=== PATIENT | female | born 1970 | race Caucasian/White ===

== ENCOUNTER 2020-09-26 10:10 | Outpatient (CLI) | payer OTHER, SELFPAY ==
--- NOTE | ~2020-09-26 | MM_ITS ---
EXAMINATION: MM screening cathy LT w evelyn HISTORY: Screening TECHNIQUE: Craniocaudal and mediolateral oblique 3-D tomosynthesis images were obtained and synthetic 2-D images were generated. CAD analysis was submitted and interpreted. COMPARISON: Comparison to multiple prior studies sequentially, with oldest reviewed study dated 09/14. BREAST PARENCHYMAL COMPOSITION: There are scattered areas of fibroglandular density. FINDINGS: There is no evidence of suspicious mass, calcification, or architectural distortion to sugg est malignancy in the left breast. There has been no suspicious interval change. IMPRESSION: 1. No mammographic evidence of malignancy. 2. Recommend routine screening mammography in one year. BI-RADS Category 1: Negative Reviewed, dictated and finalized at location A.
== END 2020-09-26 10:11 | disposition home or self-care (01) ==
LOC: ANHIMG 10:14
PROVIDERS: PCP Family Medicine; Visit Provider Family Medicine
DX: Z12.31 Encounter for screening mammogram for malignant neoplasm of breast (principal)
CPT/HCPCS: 77063; 77067

== ENCOUNTER 2021-12-12 11:33 | Outpatient (CLI) | payer OTHER, SELFPAY ==
--- NOTE | ~2021-12-12 | MM_ITS ---
EXAMINATION: MM screening cathy LT w evelyn HISTORY: Screening mammogram TECHNIQUE: Craniocaudal and mediolateral oblique 3-D tomosynthesis images were obtained and synthetic 2-D images were generated. CAD analysis was submitted and interpreted. COMPARISON: 09/26/2020, 11/08/2018, 11/03/2017 left screening mammogram examinations BREAST PARENCHYMAL COMPOSITION: The breasts are heterogeneously dense, which may obscure small masses . FINDINGS: : Subtle microcalcifications are suggested in the posterior inner left breast on craniocaud al view. Magnification views are recommended. Otherwise there is no evidence of suspicious mass or architectural distortion to suggest malignancy i n the left breast. There has been no other suspicious interval change. IMPRESSION: 1. Subtle microcalcifications are suggested in the posterior inner left breast 2. Diagnostic left mammogram is recommended with magnification views, with ultrasound if required BI-RADS Category 0: Incomplete: Needs additional imaging evaluation. Reviewed, dictated and finalized at location B. IMPRESSION: 1. Subtle microcalcifications are suggested in the posterior inner left breast 2. Diagnostic left mammogram is recommended with magnification views, with ultr asound if required BI-RADS Category 0: Incomplete: Needs additional imaging evaluation.
== END 2021-12-12 11:34 | disposition home or self-care (01) ==
PROVIDERS: PCP Family Medicine; Visit Provider Physician Assistant
DX: Z12.31 Encounter for screening mammogram for malignant neoplasm of breast (principal); R92.8 Other abnormal and inconclusive findings on diagnostic imaging of breast
CPT/HCPCS: 77063; 77067

== ENCOUNTER 2022-01-04 13:47 | Outpatient (CLI) | payer OTHER, SELFPAY ==
--- NOTE | ~2022-01-04 | MM_ITS ---
EXAMINATION: MM diagnostic mammo unilat LT HISTORY: Follow-up left breast calcifications TECHNIQUE: Additional 3-D tomosynthesis images of the left breast were performed and synthetic 2-D im ages were generated. CAD analysis was submitted and interpreted. COMPARISON: Comparison to multiple prior studies sequentially, with oldest reviewed study dated 10/23. BREAST PARENCHYMAL COMPOSITION: The breasts are heterogeneously dense, which may obscure small masses . FINDINGS: The calcifications seen on prior examination are not appreciated on the spot magnification and mediolateral views, possibly artifactual. There are no suspicious calcifications, masses or archi tectural distortion on the diagnostic images. IMPRESSION: 1. Probable benign findings of the left breast. 2. Recommend 6 month follow-up diagnostic left mammogram. BI-RADS category 3, probably benign findings. Reviewed, dictated and finalized at location A.
== END 2022-01-04 13:48 | disposition home or self-care (01) ==
LOC: ANHIMG 13:48
PROVIDERS: PCP Physician Assistant; Visit Provider Physician Assistant
DX: R92.8 Other abnormal and inconclusive findings on diagnostic imaging of breast (principal); R92.1 Mammographic calcification found on diagnostic imaging of breast
CPT/HCPCS: 77065

== ENCOUNTER 2023-07-04 09:54 | Emergency (ER) | payer OTHER, SELFPAY ==
[2023-07-04 10:07] VITALS: BP 129/79; PULSE 86; RESP 16; TEMP 36.8; O2SAT 100
[2023-07-04 10:08] VITALS: BP 129/79; PULSE 86; RESP 16; TEMP 36.8; O2SAT 100
--- NOTE | 2023-07-04 10:25 | ED.URI ---
HPI - URI/Sore Throat General Chief Complaint: Upper Respiratory Infection Stated Complaint: left eye red,throat hurts Time Seen by Provider: 07/04/23 10:16 Source: patient and RN notes reviewed Mode of arrival: ambulatory Limitations: no limitations History of Present Illness HPI Narrative: Patient presents today complaining of sore throat since last night with 3 day history of left eye redness, itching. States she has some drainage in the corner of her eye when she wakes up in the morning, but none throughout the day. Denies vision changes, fever, congestion, rhinorrhea. She has been taking Tylenol with some relief. Patient wears glasses but no contacts. Related Data Home Medications Medication Instructions Recorded Confirmed ipratropium bromide 17 17 mcg inhalation DIRECTED 07/04/23 07/04/23 mcg/actuation HFA aerosol inhaler (Atrovent HFA) Allergies Allergy/AdvReac Type Severity Reaction Status Date / Time Cat Dander Allergy Unknown Uncoded 07/29/18 08:55 Review of Systems Review of Systems: CONSTITUTIONAL: Denies body aches, fever, chills, or sweats. EYES: Denies visual changes.+ left eye redness ENT: Denies rhinorrhea, congestion, or otalgia.+ sore throat CARDIOVASCULAR: Denies chest pain, palpitations, or edema. RESPIRATORY: Denies cough or dyspnea. GASTROINTESTINAL: Denies abdominal pain, nausea, vomiting, or diarrhea. GENITOURINARY: Denies dysuria or hematuria. SKIN: Denies rash, itching, or wounds. MUSCULOSKELETAL: Denies back pain, joint pain, or myalgia. NEUROLOGIC: Denies headache, numbness, tingling, or weakness. PSYCH: Denies depression or anxiety. [facility] Family History Family History Other Cerebrovascular accident Diabetes mellitus Family history of arthritis Family history of cardiovascular disease Hypertension Social History Social History Alcohol intake: never Comments At time of signature, I have reviewed and agree with nursing past medical, surgical, social and family history unless otherwise noted. Please see nursing chart for further information. There is no relevant family history pertinent to the presenting complaint Exam Narrative: GENERAL: Well-appearing, well-nourished, and in no acute distress. HEAD: Normocephalic, atraumatic. EYES: EOMI. PERRL. Bilateral injected conjunctiva with chemosis. Mild left subconjunctival hemorrhage. No active drainage. Lids and lashes normal. ENT: Mucous membranes pink and moist. Nares clear. No rhinorrhea. TMs normal bilaterally. Throat without erythema or edema. Some cobblestoning in the posterior pharynx. Uvula midline. NECK: Normal AROM. Supple. No lymphadenopathy. CHEST: No respiratory distress. Clear to auscultation. HEART: Regular rate and rhythm. No murmur appreciated. EXTREMITIES: Normal range of motion. No edema. SKIN: Warm, dry, no rash. Capillary refill normal. Normal skin turgor. NEURO: No focal deficits. Alert and oriented x3. Gait steady. PSYCH: Normal affect. No signs of depression or anxiety. Course Course Level of Care: Express Care Visit Vital Signs Vital signs: Vital Signs Temperature 98.2 F 07/04/23 10:07 Pulse Rate 86 07/04/23 10:07 Respiratory Rate 16 07/04/23 10:07 Blood Pressure 129/79 07/04/23 10:07 Pulse Oximetry 100 07/04/23 10:07 Oxygen Delivery Room Air 07/04/23 10:07 Temperature 98.2 F 07/04/23 10:08 Pulse Rate 86 07/04/23 10:08 Respiratory Rate 16 07/04/23 10:08 Blood Pressure 129/79 07/04/23 10:08 Pulse Oximetry 100 07/04/23 10:08 Oxygen Delivery Room Air 07/04/23 10:08 Reviewed MDM - URI/Sore Throat MDM Narrative Medical decision making narrative: Rapid strep negative. Culture pending. Throat and eye Symptoms likely due to seasonal allergies. Portion of redness to the left eye due to subco
== END 2023-07-04 10:35 | disposition home or self-care (01) ==
PROVIDERS: Emergency Provider Nurse Practitioner; PCP Physician Assistant
DX: J30.2 Other seasonal allergic rhinitis (principal); H10.13 Acute atopic conjunctivitis, bilateral; H11.32 Conjunctival hemorrhage, left eye; J02.0 Streptococcal pharyngitis; B95.0 Streptococcus, group A, as the cause of diseases classified elsewhere; J44.9 Chronic obstructive pulmonary disease, unspecified; Z85.3 Personal history of malignant neoplasm of breast; Z92.21 Personal history of antineoplastic chemotherapy; Z90.11 Acquired absence of right breast and nipple
CPT/HCPCS: 87081; 87880; 99213; G0463

== ENCOUNTER 2023-10-24 08:01 | Outpatient (CLI) | payer OTHER, SELFPAY ==
--- NOTE | 2023-10-24 15:59 | WPDPFTINT ---
PFT Procedure Performed PFT Procedure Performed Plethysmography (Lung Vol) Diffusing Cap (DLCO) Flow Vol Loop Spirometry w/o Bronchodil PFT Interpretation This is a pulmonary function test with spirometry, plethysmography and diffusing capacity. The test was performed and results interpreted in accordance with the 2019 and 2005 ATS/ERS Task Force guidelines respectively using the Global Lung Function Initiative-2012 reference equations. Patient demonstrated good effort and cooperation. Reproducibility criteria were met. The quality of the spirometry maneuver was Grade A. Findings: Spirometry: There is decreased maximal expiratory airflow at all lung volumes with concave expiratory flow tracing. The contour the inspiratory flow tracing is normal. The FVC is 2.66 L, 94% predicted. The FEV1 is 1.60 L, 70% predicted. The FEV1: FVC ratio 60%. Plethysmography: Total lung capacity is 3.85 L, 89% predicted. The functional residual capacity is 1.76 L, 74% predicted. The residual volume is 1.19 L, 75% predicted. Diffusing capacity: The diffusing capacity unadjusted for hemoglobin and carboxyhemoglobin is 17.2, 84% predicted. The diffusing capacity adjusted for alveolar volume is 4.38, 91% predicted. In comparison to previous pulmonary function testing on 01/23/2018 the FVC has increased from 2.02 L to 2.66 L. The FEV1 has increased from 1.02 L to 1.60 L. The total lung capacity is decreased from 4.53 L to 3.85 L. The functional residual capacity is decreased from 3.01 L to 1.76 L. The residual volume has decreased from 2.51 L to 1.19 L. The diffusing capacity unadjusted for hemoglobin and carboxyhemoglobin is unchanged from 18.9 to 17.2. The diffusing capacity adjusted for alveolar volume has decreased from 5.36 to 4.38. Impression: There is a mild obstructive abnormality. the lung volumes are normal. The diffusing capacity is normal. In comparison to previous pulmonary function testing on 01/23/2018 there has been a greater than anticipated time dependent increase in the FVC and FEV1. There has been a greater than anticipated time dependent decrease in the total lung capacity, functional residual capacity, residual volume and diffusing capacity adjusted for alveolar volume. There has been no significant change in the diffusing capacity unadjusted for hemoglobin and carboxyhemoglobin. Clinical correlation is recommended.
== END 2023-10-24 08:02 | disposition home or self-care (01) ==
LOC: ANHPFT 08:03
PROVIDERS: PCP Physician Assistant; Visit Provider Physician Assistant
DX: J44.9 Chronic obstructive pulmonary disease, unspecified (principal)
CPT/HCPCS: 94375; 94726; 94729

== ENCOUNTER 2025-01-01 19:32 | Emergency (ER) | payer OTHER, SELFPAY ==
[2025-01-01] VITALS (12 sets, daily range): BP systolic 125–147; BP diastolic 71–89; PULSE 94; RESP 20; TEMP 36.4; O2SAT 96–100
--- NOTE | ~2025-01-01 | CT_ITS ---
CT abdomen pelvis w con Clinical History: ab pain . Comparison: None Technique: Axial images lung bases to symphysis pubis 100 mL Omnipaque 350 Coronal, sagittal reformats CT images acquired with automatic exposure control for dose reduction DLP: 423 mGy-cm Findings: Lung bases: Clear. Visualized heart and pericardium: Unremarkable. Liver: Enlarged. Steatosis. Small dystrophic calcification along dome. Probable micronodular contour. Gallbladder: Probable stones. Spleen: Unremarkable. Pancreas: Unremarkable. Adrenal glands: Unremarkable. Kidneys: Right kidney- No hydronephrosis. No renal stones. Left kidney- No hydronephrosis. No renal stones. Distal esophagus/stomach: Unremarkable. Small bowel loops: Normal caliber and wall thickness. Colon: Normal caliber and wall thickness. Appendix not seen. Nodes: No enlarged nodes. Peritoneum: No ascites. No free air. Urinary bladder: Unremarkable. Uterus: Unremarkable. Adnexa: No masses. Bones: No acute bony abnormality. Soft tissues: Unremarkable. Aorta: No aneurysm or dissection. IVC: Unremarkable. Main portal vein/SMV/splenic vein: Patent. IMPRESSION: 1. No acute findings. Reviewed, dictated and finalized at location R. IMPRESSION: 1. No acute findings.
--- NOTE | 2025-01-01 20:27 | ED_ITS ---
HPI - General Adult General Chief complaint: Abdominal Pain Stated complaint: abdominal pain, nausea/vomit weeks Time Seen by Provider: 01/01/25 20:04 History of Present Illness HPI narrative: 54-year-old female presented emergency department for evaluation for left upper quadrant abdominal pain it has been intermittent for the last few weeks. Patient reports she has had increased worsened heartburn. Patient has had associated nausea and vomiting. Patient denies any prior history of gastritis or heartburn or stomach ulcers. Patient does not drink alcohol daily and patient denies any frequent ibuprofen use. Patient has no prior history of endoscopy. Patient denies any midline abdominal pain denies any right upper quadrant abdominal pain. Patient is well-appearing at time of evaluation. Patient has no prior abdominal surgical history. Related Data Home Medications ?Medication ?Instructions ?Recorded ?Confirmed ?Last Taken ?Type ipratropium bromide 17 17 mcg inhalation DIRECTE D 07/04/23 07/04/23 Unknown History mcg/actuation HFA aerosol inhaler (Atrovent HFA) Allergies Allergy/AdvReac Type Severity Reaction Status Date / Time Cat Dander Allergy Unknown Uncoded 07/29/18 08:55 Review of Systems 2 Review of Systems: All systems reviewed & are unremarkable except as noted in HPI and below PMFSH Family History Family History Other Cerebrovascular accident Diabetes mellitus Family history of arthritis Family history of cardiovascular disease Hypertension Social History Social History Alcohol intake: never Exam 2 Narrative: APPEARANCE: Well appearing, no pain, no distress, well-nourished. HEAD: normocephalic, atraumatic. EYES: PERRLA/EOMI, conjunctivae clear. NOSE: Normal no drainage EARS:TMS clear with good light reflex. THROAT: Pharynx clear, no exudate. NECK: Supple. No adenopathy, no masses. RESPIRATORY: Airway patent, respirations nonlabored. Clear to auscultation bilaterally, no rales, rhonchi, wheezing. CARDIOVASCULAR: Regular rate and rhythm without murmurs rubs or gallops. ABDOMINAL: Soft, nontender, nondistended, normal bowel sounds MUSCULOSKELETAL: left upper quadrant tenderness to palpation NEURO: Alert. Cranial nerves II through XII intact. Good gait. Good coordination SKIN: Warm, dry. Normal Color Course Vital Signs Vital signs: Vital Signs Temperature 97.6 F 01/01/25 19:51 Pulse Rate 94 01/01/25 19:51 Respiratory Rate 20 01/01/25 19:51 Blood Pressure 147/89 H 01/01/25 19:51 Pulse Oximetry 99 01/01/25 19:51 Oxygen Delivery Room Air 01/01/25 19:51 Temperature 97.6 F 01/01/25 19:51 Pulse Rate 94 01/01/25 19:51 Respiratory Rate 20 01/01/25 19:51 Blood Pressure 132/71 01/01/25 22:16 Pulse Oximetry 97 01/01/25 22:16 Oxygen Delivery Room Air 01/01/25 19:51 Medical Decision Making MDM Narrative Medical decision making narrative: 54-year-old female presents emergency department for evaluation for left upper quadrant abdominal pain. Patient was treated with IV fluids, IV Protonix and a GI cocktail and on re-evaluation patient states he does feel significantly improved. Patient is currently afebrile with no leukocytosis hemoglobin of 14.4 and platelet count of 250. Patient's INR is 0.9. No significant acute abnormalities on her CMP UA was negative for infection. CT abdomen pelvis is pending at time of sign-out. Differential Diagnosis Differential Diagnosis: Colitis, diverticulitis, acute cholecystitis, appendicitis Vital Signs Vital Signs: Vital Signs Temperature 97.6 F 01/01/25 19:51 Pulse Rate 94 01/01/25 19:51 Respiratory Rate 20 01/01/25 19:51 Blood Pressure 147/89 H 01/01/25 19:51 Pulse Oximetry 99 01/01/25 19:51 Oxygen Delivery Room Air 01/01/25 19:51 Temperature 97.6 F 01/01/25 19:51 Pulse Rate 94 01/01/25 19:51 Respiratory Rate 20 01/01/25 19:51 Blood Pressure 132/71 01/01/25 22:16 Pulse Oximetry 97 01/01/25 22:16 Oxygen Delivery Room Air 01/01/25 19:51 Lab Data 01/01/25 20:27 01/01/25 20:27 Labs: Lab Results 01/01/25 01/01/25 Range/Units 20:21 20:27 WBC 7.3 (4.5-10.0) K/mm3 RBC 4.65 (4.2-5.4) M/mm3 Hgb 14.4 (12.0-15.0) g/dL Hct 42.8 (37.0-47.0) % MCV 92.0 (80-100) fl MCH 31.0 (26-34) pg MCHC 33.6 (32-36) g/dl RDW 12.9 (11.5-14.5) % Plt Count 250 (150-375) k/mm3 MPV 9.2 (7.4-10.4) fl Immature Gran % (Auto) 0.1 (0-0.5) % Neut % (Auto) 61.6 (45.5-73.1) % Lymph % (Auto) 28.3 (18.3-44.2) % [place] % (Auto) 8.1 (2.6-8.5) % Eos % (Auto) 1.6 (0-4.4) % Baso % (Auto) 0.3 (0.2-1.2) % Lymph # (Auto) 2.07 (0.9-3.2) K/mm3 [place] # (Auto) 0.6 (0.1-0.6) K/mm3 Eos # (Auto) 0.1 (0-0.3) K/mm3 Baso # (Auto) 0.0 (0.0-0.1) K/mm3 Abs Immat Gran (auto) 0.01 (0.00-0.031) K/mm3 Absolute Neuts (auto) 4.5 (1.3-6.7) K/mm3 Absolute Nucleated RBC 0.000 (0.0-0.012) K/mm3 Nucleated RBC % 0.0 (0.0-0.2) % PT 12.7 (11.1-14.7) Seconds INR 0.9 APTT 25.4 (22.3-36.8) Seconds Sodium 138 (137-145) mmol/L Potassium 4.0 (3.4-5.0) mmol/L Chloride 105 (98-107) mmol/L Carbon Dioxide 25 (22-30) mmol/L Anion Gap 8 (4-12) mmol/L BUN 23 H (7-17) mg/dL Creatinine 0.74 (0.7-1.0) mg/dL Estim Creat Clear Calc Not Reportable Estimated GFR > 60 (59 - ) Glucose 103 (65-110) mg/dL Lactic Acid 1.1 (0.7-2.0) mmol/L Calcium 8.9 (8.4-10.2) mg/dL Total Bilirubin 0.4 (0.2-1.3) mg/dL AST 41 H (14-36) U/L ALT 40 H (6-35) U/L Alkaline Phosphatase 61 (38-126) U/L Total Protein 7.3 (6.3-8.2) g/dL Albumin 4.5 (3.5-5.1) g/dL Lipase 85 (23-300) U/L Urine Color Yellow (Yellow) Urine Appearance Clear (Clear) Urine pH 6.5 (5.0-9.0) Ur Specific [place] 1.014 (1.001-1.035) Urine Protein Negative (Negative) mg/dL Urine Glucose (UA) Negative (Negative) mg/dL Urine Ketones Negative (Negative) mg/dL Ur Blood (Man) Negative (Negative) Urine Nitrate Negative (Negative) Urine Bilirubin Negative (Negative) Urine Urobilinogen 1.0 (<2.0) mg/dL Leukocyte Esterase Rfl Negative (Negative) ZHANNA/UL Discharge Plan Discharge Clinical Impression: Abdominal pain, Gastritis Patient Disposition: Home Condition: Stable Instructions: Antibiotic Form, Diet for Stomach Ulcers and Gastritis (ED), Abdominal Pain (ED) Additional Instructions: Avoid NSAIDs and avoid alcohol. Maalox as needed for intermittent left upper quadrant abdominal pain. Prilosec as directed for the next 14 days. Follow the bland diet. Have close follow-up with GI. Patient Language: Malian Prescriptions: New omeprazole 20 mg capsule,delayed release(DR/EC) 20 mg PO DAILY 14 Days Qty: 14 0RF No Action Atrovent HFA 17 mcg/actuation HFA aerosol inhaler 17 mcg INHALATION DIRECTED penicillin V potassium 500 mg tablet 500 mg PO Q12H 10 Days Qty: 20 0RF Follow-up/Referrals: Yelitza,PARMJTI Ward [Primary Care Provider, Unknown] Ernesto Bill MD [Physician, Gastroenterology]
[2025-01-01 20:29] LABS: Add Urine Microscopic? NO; Appearance Urine Clear (Clear); Glucose Urine UA Negative (Negative); Leukocyte Esterase Ur Negative LEU/UL (Negative); Nitrate Urine Negative (Negative); Specific Grav Ur 1.014 (1.001-1.035)
[2025-01-01 20:33] LABS: Hematocrit 42.8 % (37.0-47.0); Hemoglobin 14.4 g/dL (12.0-15.0); Immature Granulocyte Percent A 0.1 % (0-0.5); Lymphocytes Absolute Auto 2.07 K/mm3 (0.9-3.2); Mean Corpuscular HGB Conc 33.6 g/dl (32-36); Mean Corpuscular Hemoglobin 31.0 pg (26-34); Mean Corpuscular Volume 92.0 fl (80-100); Nucleated Red Blood Cells Absolute Auto 0.000 K/mm3 (0.0-0.012); Nucleated Red Blood Cells Perc 0.0 % (0.0-0.2); Platelet Count Result 250 k/mm3 (150-375); Red Blood Count 4.65 M/mm3 (4.2-5.4); White Blood Count 7.3 K/mm3 (4.5-10.0)
[2025-01-01 20:44] LABS: Alanine Aminotransferase 40 U/L (6-35); Albumin Level 4.5 g/dL (3.5-5.1); Alkaline Phosphatase 61 U/L (38-126); Anion Gap 8 mmol/L (4-12); Aspartate Amino Transferase 41 U/L (14-36); Bilirubin,Total 0.4 mg/dL (0.2-1.3); Blood Urea Nitrogen 23 mg/dL (7-17); Calcium 8.9 mg/dL (8.4-10.2); Carbon Dioxide 25 mmol/L (22-30); Chloride 105 mmol/L (98-107); Estimated Glomerular Filt Rate > 60; Glucose 103 mg/dL (65-110); INR 0.9; Lipase 85 U/L (23-300); Potassium 4.0 mmol/L (3.4-5.0); Prothrombin Time 12.7 Seconds (11.1-14.7); Sodium 138 mmol/L (137-145); Total Protein 7.3 g/dL (6.3-8.2)
[2025-01-01] MEDS: LACTATED RINGERS 1,000 ML 999 ML IV CONT (20:44)
[2025-01-01 20:45] LABS: Partial Thromboplastin Time 25.4 Seconds (22.3-36.8)
[2025-01-01] MEDS: ONDANSETRON INJ 4 MG/2 ML VIAL IV PUSH (20:45)
[2025-01-01] MEDS: PANTOPRAZOLE SODIUM IV 40 MG VIAL IV PUSH (20:45)
[2025-01-01] MEDS: BELLADONNA ALK/PHENOB ELIX 10 ML, MAG HYDROX/ALUMINUM HYD/SIMETH 30 ML, LIDOCAINE 2% VI... PO (20:45)
== END 2025-01-01 22:47 | disposition home or self-care (01) ==
PROVIDERS: Emergency Provider Emergency Medicine; PCP Physician Assistant
DX: K29.70 Gastritis, unspecified, without bleeding (principal)
CPT/HCPCS: 36415; 74177; 80053; 81003; 83605; 83690; 85025; 85610; 85730; 96361; 96374; 96375; 99284; A9270; J2405; J2470; J7120; Q9967

== ENCOUNTER 2025-01-24 01:44 | Day surgery (SDC) | payer OTHER, SELFPAY ==
--- NOTE | 2025-01-22 12:14 | SUR.PREOP ---
[facility] has started construction of its new state of the art ER which will open Spring 2026. With this, we anticipate parking may be a challenge for some our surgical patients and families. Parking spaces are limited but are available for all Surgical, obstetrics, and ER patients sharing this lot. If you arrive and find you are having a hard time finding a parking space, please note that we understand the challenges, please drive around the hospital and park near Hospital Entrance 1. When you enter this entrance, you can ask a volunteer to direct or take you back to the surgical waiting area to check in. We appreciate everyone?s understanding of these expected challenges while we build for your future. Report to the Outpatient Waiting Room, entrance under the green pavilion located off [address], at time __9AM___ on date _01/24/25___. Planned Procedure Time: __11AM__.? Time changes happen often and if your time is changed the preop area will call you the afternoon before. - You and your visitor will be asked to self-screen and do not enter if you have any COVID symptoms. Please call surgeon if you need to reschedule. - A mask is optional within the hospital at this time. Patients may have clear liquids (water, carbonated beverages, clear teas, apple juice) until 3 hours prior to surgery with a maximum of 20 ounces. - No food from midnight until time of surgery and no smoking, or chewing tobacco (or any form of nicotine). No chewing gum, candy or mints. Take only the following medications with a SIP of water on the morning of surgery: __albuterol as needed__ DO NOT STOP ANY OF YOUR OTHER PRESCRIPTION MEDICATIONS PRIOR TO SURGERY EXCEPT THE FOLLOWING Hold all vitamins and supplements for 3 days per anesthesiologist. Medications to discontinue per physician ___none____ Date to take last dose of vitamins_stop today 01/22/25__ Please no make-up, nail congolese, hairspray, perfume, deodorant, or body powder the day of surgery.? No jewelry (including any body piercings) or valuables the day of surgery, leave them at home.? Please take a shower or bath the night before, or the morning of, surgery with an antibacterial soap.? Wear comfortable, loose fitting clothing.? - Jewelry must be removed prior to entering the operating room.? Rings and piercings that are not removed may be cut off. - The hospital will not accept responsibility for valuables.? - Please leave all valuables, including medications, at home the day of surgery. If you are going home after surgery, a licensed jinrikisha driver must drive you home.? - NO public transportation without another adult if you receive anesthesia. - We recommend that an adult stay with you for 24 hours following discharge. - We also recommend that you do not drive, make important decision, drink alcoholic beverages, or take any drugs that were not prescribed by your health care provider for at least 24 hours after your discharge time. Follow any additional instructions given to you from your surgeon. Telephone instructions given to __Stephaniel____and asked if any additional questions and then verbalized understanding. Patient advised to call surgeon office or pre surgery nurse liaison [phone] if any additional questions.
[2025-01-22 12:24] VITALS: BMI 28.8
--- OUTSIDE RECORDS SUMMARY | 2025-01-24 01:47 | XMS_ITS | Data Portability ---
Author Organization [facility] Boris [facility] Address [address] [place] [address] Care Team Providers Care Extrusion Former Name Role Phone SYLVIA WHITEHEAD Primary Care Provider Assessment Encounter Date Assessment Date Assessment LastModified by Organization Details LastModified Time 08/16/2023 08/16/2023 Sections of the HPI, exam and assessment completed by Rhonda FREIRE, and have been reviewed by me. I agree with the exam findings, assessment and plan except where specifically documented or amended. -Sylvia Whitehead, [facility], PA-C [email or web address] Not available 08/16/2023 11:22:48 Plan of Treatment Reminders Order Date Submit Date Provider Last Modified By Organization Details Last Modified Time Details Appointments None recorded. Lab cytology report, thin prep, smear or scraping, cervical or vaginal 2024 025 [facility], [address], [address], [place], [address], 5 09:55:24 bacterial vaginosis score, MO+probe, vaginal fluid (OBS) 2024 025 [facility], [address], [address], [place], [address], 5 12:17:25 CMP, serum or plasma [address] [facility], [address], [address], [address], 5 10:13:15 lipid panel, serum or plasma 2024 025 CAROLINAKENN Bermudez, 2022 [address], [address], [place], [address], 5 08:25:35 CBC w/ auto diff 2024 025 CHAMA Rafael, 2022 Joey [address]div[address], [address], [place], [address], 5 08:25:36 TSH + free T4, serum 2024 025 CAROLINAKENN Bermudez, 2022 [address], [address], [place], [address], 5 10:13:14 HbA1c (hemoglobin A1c), blood 2024 025 CAROLINA Hall, 2022 [address], [address], [place], [address], 5 10:13:16 CMP, serum or plasma 2023 024 CAROLINAKENN Bermudez, 2022 Joey [address]div[address], [address], [place], [address], 4 21:07:55 lipid panel, serum 2023 024 CAROLINA Bermudez, 2022 [address], [address], [place], [address], 4 21:07:54 CBC w/ auto diff 2023 024 CAROLINAKENN Hall, 2022 [address], [address], [place], [address], 4 21:07:57 TSH + free T4, serum 2023 024 CAROLINA Bermudez, 2022 [address], [address], [place], [address], 4 08:30:14 HbA1c (hemoglobin A1c), blood 2023 024 [facility], [address] [facility], [place], [address], 4 08:30:15 vitamin D, 25-hydroxy, total, serum 2023 024 [facility], [address], [address], [place], [address], 4 08:30:16 CMP, serum or plasma 2022 023 [facility], 2022 Joey [address]div[address], [address], [place], [address], 3 01:07:29 lipid panel, serum 2022 023 [facility], [address], [address], [place], [address], 3 01:07:29 CBC w/ auto diff 2022 023 [facility], 2022 Joey [address]divar, [address], [place], [address], 3 15:11:49 TSH + free T4, serum 2022 023 [facility], 2022 Joey [address]divar, [address], [place], [address], 3 08:23:31 HbA1c (hemoglobin A1c), blood 2022 023 [facility], 2022 Joey [address]divar, [address], [place], [address], 3 08:23:31 vitamin D, 25-hydroxy, total, serum 2022 023 [facility], [address] [facility] [address], [place], [address], 3 08:23:32 cytology report, thin prep, smear or scraping, cervical or vaginal 2021 022 [facility], [address] [facility] [address], [address], [place], [address], 2 03:07:45 Referral gastroenter ologist referral 2024 025 lorrie De Dios MD, [address], [place], [address], 5 08:30:29 Procedures colonoscopy procedure (PROC) 2023 024 lorrie De Dios MD, [address], [address], [place], [address], 4 08:08:34 Surgeries None recorded. Imaging US, pelvis, transabdomi nal + transvagina l 2024 025 [facility] (Imaging), [facility] [address], [place], [address], 5 14:39:36 MAMMO, screening, bilateral [address] (Mammography) , [address], [place], [address], 5 08:25:40 US, breast, unilateral [address] (Mammography) , [address], [place], [address], 5 08:25:40 MAMMO, screening, bilateral [address] (Mammography) , [address], [place], [address], 4 08:03:25 PFT, complete [address] (Imaging), [address], [place], [address], 4 17:09:39 Medication Orders albuterol sulfate HFA 90 mcg/actuati on aerosol inhaler 2024 025 [facility] #[id number], [address] [place] [address], [id number], 5 11:01:56 Incruse Ellipta 62.5 mcg/actuati on powder for inhalation 2024 025 [facility] #[id number], [address] [place] [address], [id number], 5 11:08:26 Atrovent HFA 17 mcg/actuati on aerosol inhaler 2022 023 [facility] #[id number], [address] [facility] [address] [place] [address], [id number], 3 20:15:49 albuterol sulfate HFA 90 mcg/actuati on aerosol inhaler 2022 023 [facility] #[id number], [address] [place] [address], [id number], 3 14:12:56 Patient TargetsNo targets recorded. 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 Referring Physician: Sylvia Barbero, Family Medicine, Encounter Date: 11/21/2024 Results Created Date Observation Date Name Description Value Unit Range Abnormal Flag Note LastModifiedBy Organization Detail LastModifiedTime 08/20/19 22 08/20/2021 TSH+F REE T4 TSH 1.920 uIU/m L 0.450- 4.500 Not Available [facility] ([facility]) [address] [place], [address], 08/20/2021 09:16:47 08/20/19 22 08/20/2021 TSH+F REE T4 T4,free(dire ct) 1.26 NG/dL 0.82-1 .77 Not Available [facility] ([facility]) [address] [place], [address], 08/20/2021 09:16:47 08/20/19 22 08/20/2021 CBC WITH DIFFE RENTI AL/PL ATELE T WBC 4.6 x10e3 /uL 3.4-10 .8 Not Available [facility] ([facility]) [address] [place], [address], 08/20/2021 09:16:48 08/20/19 22 08/20/2021 CBC WITH DIFFE RENTI AL/PL ATELE T RBC 4.85 x10e6 /uL 3.77-5 .28 Not Available [facility] ([facility]) [address] [place], [address], 08/20/2021 09:16:48 08/20/19 22 08/20/2021 CBC WITH DIFFE RENTI AL/PL ATELE T hemoglobin 15.2 g/dL 11.1-1 5.9 Not Available [facility] ([facility]) [address] [place], [address], 08/20/2021 09:16:48 08/20/19 22 08/20/2021 CBC WITH DIFFE RENTI AL/PL ATELE T hematocrit 45.0 % 34.0-4 6.6 Not Available [facility] ([facility]) [address] [place], [address], 08/20/2021 09:16:48 08/20/19 22 08/20/2021 CBC WITH DIFFE RENTI AL/PL ATELE T MCV 93 fL 79-97 Not Available [facility] ([facility]) [address] [facility], [place], [address], 08/20/2021 09:16:48 08/20/19 22 08/20/2021 CBC WITH DIFFE RENTI AL/PL ATELE T MCH 31.3 pg 26.6-3 3.0 Not Available [facility] ([facility]) [address] [facility], [place], [address], 08/20/2021 09:16:48 08/20/19 22 08/20/2021 CBC WITH DIFFE RENTI AL/PL ATELE T MCHC 33.8 g/dL 31.5-3 5.7 Not Available [facility] ([facility]) [address] [place], [address], 08/20/2021 09:16:48 08/20/19 22 08/20/2021 CBC WITH DIFFE RENTI AL/PL ATELE T RDW 12.7 % 11.7-1 5.4 Not Available [facility] ([facility]) [address] [place], [address], 08/20/2021 09:16:48 08/20/19 22 08/20/2021 CBC WITH DIFFE RENTI AL/PL ATELE T platelets 293 x10e3 /uL 150-45 0 Not Available [facility] ([facility]) [address] [place], [address], 08/20/2021 09:16:48 08/20/19 22 08/20/2021 CBC WITH DIFFE RENTI AL/PL ATELE T neutrophils 50 % not estab. Not Available [facility] ([facility]) [address] [facility], [place], [address], 08/20/2021 09:16:48 08/20/19 22 08/20/2021 CBC WITH DIFFE RENTI AL/PL ATELE T lymphs 33 % not estab. Not Available [facility] ([facility]) [address] [facility], [place], [address], 08/20/2021 09:16:48 08/20/19 22 08/20/2021 CBC WITH DIFFE RENTI AL/PL ATELE T monocytes 13 % not estab. Not Available [facility] ([facility]) [address] [facility], [place], [address], 08/20/2021 09:16:48 08/20/19 22 08/20/2021 CBC WITH DIFFE RENTI AL/PL ATELE T eos 3 % not estab. Not Available [facility] ([facility]) [address] [facility], [place], [address], 08/20/2021 09:16:48 08/20/19 22 08/20/2021 CBC WITH DIFFE RENTI AL/PL ATELE T basos 1 % not estab. Not Available [facility] ([facility]) [address] [facility], [place], [address], 08/20/2021 09:16:48 08/20/19 22 08/20/2021 CBC WITH DIFFE RENTI AL/PL ATELE T immature cells MANAGER NET Not Available [facility] ([facility]) [address] [facility], [place], [address], 08/20/2021 09:16:48 08/20/19 22 08/20/2021 CBC WITH DIFFE RENTI AL/PL ATELE T neutrophils (absolute) 2.3 x10e3 /uL 1.4-7. 0 Not Available [facility] ([facility]) [address] [place], [address], 08/20/2021 09:16:48 08/20/19 22 08/20/2021 CBC WITH DIFFE RENTI AL/PL ATELE T lymphs (absolute) 1.5 x10e3 /uL 0.7-3. 1 Not Available [facility] ([facility] [facility]) [address] [facility], [place], [address], 08/20/2021 09:16:48 08/20/19 22 08/20/2021 CBC WITH DIFFE RENTI AL/PL ATELE T monocytes(ab solute) 0.6 x10e3 /uL 0.1-0. 9 Not Available [facility] ([facility]) [address] [facility], [place], [address], 08/20/2021 09:16:48 08/20/19 22 08/20/2021 CBC WITH DIFFE RENTI AL/PL ATELE T eos (absolute) 0.1 x10e3 /uL 0.0-0. 4 Not Available [facility] ([facility]) [address] [facility], [place], [address], 08/20/2021 09:16:48 08/20/19 22 08/20/2021 CBC WITH DIFFE RENTI AL/PL ATELE T baso (absolute) 0.0 x10e3 /uL 0.0-0. 2 Not Available [facility] ([facility]) [address] [place], [address], 08/20/2021 09:16:48 08/20/19 22 08/20/2021 CBC WITH DIFFE RENTI AL/PL ATELE T immature granulocytes 0 % not estab. Not Available [facility] ([facility]) [address] [place], [address], 08/20/2021 09:16:48 08/20/19 22 08/20/2021 CBC WITH DIFFE RENTI AL/PL ATELE T immature grans (abs) 0.0 x10e3 /uL 0.0-0. 1 Not Available [facility] ([facility] [facility]) [address] [facility], [place], [address], 08/20/2021 09:16:48 08/20/19 22 08/20/2021 CBC WITH DIFFE RENTI AL/PL ATELE T NRBC MANAGER NET Not Available [facility] ([facility]) [address], [place], [address], 08/20/2021 09:16:48 08/20/19 22 08/20/2021 CBC WITH DIFFE RENTI AL/PL ATELE T hematology comments: MANAGER NET Not Available [facility] ([facility]) [address] [facility], [place], [address], 08/20/2021 09:16:48 08/20/19 22 08/20/2021 COMP. METAB OLIC PANEL (14) glucose 94 mg/dL 65-99 Not Available [facility] ([facility]) [address] [facility], [place], [address], 08/20/2021 09:16:49 08/20/19 22 08/20/2021 COMP. METAB OLIC PANEL (14) BUN 15 mg/dL 6-24 Not Available [facility] ([facility]) [address] [facility], [place], [address], 08/20/2021 09:16:49 08/20/19 22 08/20/2021 COMP. METAB OLIC PANEL (14) creatinine 0.91 mg/dL 0.57-1 .00 Not Available [facility] ([facility]) [address] [facility], [place], [address], 08/20/2021 09:16:49 08/20/19 22 08/20/2021 COMP. METAB OLIC PANEL (14) eGFR 77 mL/mi n/1.7 3 >59 Not Available [facility] ([facility]) [address] [facility], [place], [address], 08/20/2021 09:16:49 08/20/19 22 08/20/2021 COMP. METAB OLIC PANEL (14) BUN/creatini ne ratio 16 9-23 Not Available [facility] ([facility]) [address] [facility] [place], [address], 08/20/2021 09:16:49 08/20/19 22 08/20/2021 COMP. METAB OLIC PANEL (14) sodium 141 mmol/ L 134-14 4 Not Available [facility] ([facility]) [address] [facility] [place], [address], 08/20/2021 09:16:49 08/20/19 22 08/20/2021 COMP. METAB OLIC PANEL (14) potassium 4.5 mmol/ L 3.5-5. 2 Not Available [facility] ([facility]) [address] [facility] [place], [address], 08/20/2021 09:16:49 08/20/19 22 08/20/2021 COMP. METAB OLIC PANEL (14) chloride 102 mmol/ L 96-106 Not Available [facility] ([facility]) [address] [facility] [place], [address], 08/20/2021 09:16:49 08/20/19 22 08/20/2021 COMP. METAB OLIC PANEL (14) carbon dioxide, total 22 mmol/ L 20-29 Not Available [facility] ([facility]) [address] [place], [address], 08/20/2021 09:16:49 08/20/19 22 08/20/2021 COMP. METAB OLIC PANEL (14) calcium 9.3 mg/dL 8.7-10 .2 Not Available [facility] ([facility]) [address] [place], [address], 08/20/2021 09:16:49 08/20/19 22 08/20/2021 COMP. METAB OLIC PANEL (14) protein, total 7.1 g/dL 6.0-8. 5 Not Available [facility] ([facility]) [address] [facility] [place], [address], 08/20/2021 09:16:49 08/20/19 22 08/20/2021 COMP. METAB OLIC PANEL (14) albumin 4.9 g/dL 3.8-4. 8 above high normal Not Available [facility] ([facility]) [address] [place], [address], 08/20/2021 09:16:49 08/20/19 22 08/20/2021 COMP. METAB OLIC PANEL (14) globulin, total 2.2 g/dL 1.5-4. 5 Not Available [facility] ([facility]) [address] [place], [address], 08/20/2021 09:16:49 08/20/19 22 08/20/2021 COMP. METAB OLIC PANEL (14) A/G ratio 2.2 1.2-2. 2 Not Available [facility] ([facility]) [address] [place], [address], 08/20/2021 09:16:49 08/20/19 22 08/20/2021 COMP. METAB OLIC PANEL (14) bilirubin, total 0.3 mg/dL 0.0-1. 2 Not Available [facility] ([facility]) [address] [place], [address], 08/20/2021 09:16:49 08/20/19 22 08/20/2021 COMP. METAB OLIC PANEL (14) alkaline phosphatase 67 IU/L 44-121 Not Available [facility] ([facility]) [address] [place], [address], 08/20/2021 09:16:49 08/20/19 22 08/20/2021 COMP. METAB OLIC PANEL (14) AST (SGOT) 28 IU/L 0-40 Not Available [facility] ([facility]) [address] [facility] [place], [address], 08/20/2021 09:16:49 08/20/19 22 08/20/2021 COMP. METAB OLIC PANEL (14) ALT (SGPT) 32 IU/L 0-32 Not Available [facility] ([facility]) [address] [facility], [place], [address], 08/20/2021 09:16:49 08/20/19 22 08/20/2021 LIPID PANEL WITH LDL/H DL RATIO cholesterol, total 208 mg/dL 100-19 9 above high normal Not Available [facility] ([facility]) [address] [place], [address], 08/20/2021 09:16:49 08/20/19 22 08/20/2021 LIPID PANEL WITH LDL/H DL RATIO triglyceride s 127 mg/dL 0-149 Not Available [facility] ([facility]) [address] [place], [address], 08/20/2021 09:16:49 08/20/19 22 08/20/2021 LIPID PANEL WITH LDL/H DL RATIO HDL cholesterol 53 mg/dL >39 Not Available [facility] ([facility]) [address] [place], [address], 08/20/2021 09:16:49 08/20/19 22 08/20/2021 LIPID PANEL WITH LDL/H DL RATIO VLDL cholesterol earle 23 mg/dL 5-40 Not Available [facility] ([facility]) [address] [place], [address], 08/20/2021 09:16:49 08/20/19 22 08/20/2021 LIPID PANEL WITH LDL/H DL RATIO LDL chol calc ([facility]) 132 mg/dL 0-99 above high normal Not Available [facility] ([facility]) [address] [place], [address], 08/20/2021 09:16:49 08/20/19 22 08/20/2021 LIPID PANEL WITH LDL/H DL RATIO comment: MANAGER NET Not Available [facility] ([facility]) [address] [place], [address], 08/20/2021 09:16:49 08/20/19 22 08/20/2021 LIPID PANEL WITH LDL/H DL RATIO LDL/HDL ratio 2.5 ratio 0.0-3. 2 LDL/H DL Ratio Men Women 1/2 Avg.R isk 1.0 1.5 Avg.R isk 3.6 3.2 2X Avg.R isk 6.2 5.0 3X Avg.R isk 8.0 6.1 Not Available [facility] ([facility]) [address] [facility], [place], [address], 08/20/2021 09:16:49 08/20/19 22 08/20/2021 HEMOG LOBIN A1C hemoglobin A1C 5.3 % 4.8-5. 6 Predi abete s: 5.7 - 6.4 Diabe lefty: >6.4 Glyce aby contr ol for adult s with diabe lefty: <7.0 Not Available [facility] ([facility]) [address] [place], [address], 08/20/2021 09:16:50 09/17/19 22 09/18/2021 IGP, APTIM A HPV, RFX 16/18 ,45 diagnosis: Commen t NEGAT RACHELL FOR INTRA EPITH ELIAL LESIO N OR MALIG IWONA . SHIFT IN NATHALIE SUGGE STIVE OF BACTE RIAL VAGIN OSIS. Not Available [facility] ([facility]) [address] [place], [address], 09/19/2021 03:07:45 09/17/19 22 09/18/2021 IGP, APTIM A HPV, RFX 16/18 ,45 specimen adequacy: Commen t Satis facto ry for evalu ation . Endoc ervic al and/o r squam ous metap lasti c cells (endo cervi earle compo nent) are prese nt. Not Available [facility] ([facility]) [address] [place], [address], 09/19/2021 03:07:45 09/17/19 22 09/18/2021 IGP, APTIM A HPV, RFX 16/18 ,45 clinician provided ICD10: Sigifredo larry Z12.4 Not Available [facility] ([facility]) [address] [place], [address], 09/19/2021 03:07:45 09/17/19 22 09/18/2021 IGP, APTIM A HPV, RFX 16/18 ,45 performed by: Sigifredo Raman, Sherrill larry (ASCP ) Not Available [facility] ([facility]) [address] [place], [address], 09/19/2021 03:07:45 09/17/19 22 09/18/2021 IGP, APTIM A HPV, RFX 16/18 ,45 . . Not Available [facility] ([facility]) [address] [place], [address], 09/19/2021 03:07:45 09/17/19 22 09/18/2021 IGP, APTIM A HPV, RFX 16/18 ,45 note: Sigifredo larry The Pap smear is a scree isa test desfelicia edouard to aid in the detec tion of viet ligna nt and malig nant condi tions of the uteri ne cervi x. It is not a diagn ostic proce dure and shoul d not be used as the sole means of detec ting cervi earle cance r. Both false -posi tive and false -nega tive repor ts do occur . Not Available [facility] ([facility]) [address] [place], [address], 09/19/2021 03:07:45 09/17/19 09/18/2021 IGP, APTIM A HPV, RFX 16/18 ,45 test methodology: Commen t This liqui d based ThinP rep(R ) pap test was consuelo edouard with the use of an image guide eboni colon Not Available [facility] ([facility]) [address] [place], [address], 09/19/2021 03:07:45 09/17/1909/18/2021 IGP, APTIM A HPV, RFX 16/18 ,45 HPV aptima Negati ve negati ve This nucle ic acid ampli ficat ion test detec ts fourt een high- risk HPV types (16,1 8,31, 33,35 ,39,4 5,51, 52,56 ,58,5 9,66, 68) witho ut diffe renti ation . Not Available [facility] ([facility]) [address] [place], [address], 09/19/2021 03:07:45 09/22/1909/22/2022 TSH+F REE T4 TSH 0.860 uIU/m L 0.450- 4.500 Not Available [facility] ([facility]) [address] [place], [address], 09/22/2022 08:23:30 09/22/1909/22/2022 TSH+F REE T4 T4,free(dire ct) 1.17 NG/dL 0.82-1 .77 Not Available [facility] ([facility]) [address] [place], [address], 09/22/2022 08:23:30 09/22/1909/22/2022 HEMOG LOBIN A1C hemoglobin A1C 5.5 % 4.8-5. 6 Predi abete s: 5.7 - 6.4 Diabe lefty: >6.4 Glyce aby contr ol for adult s with diabe lefty: <7.0 Not Available [facility] ([facility]) [address] [place], [address], 09/22/2022 08:23:31 09/22/19 23 09/22/2022 VITAM IN D, 25-HY DROXY vitamin D, 25-hydroxy 47.1 NG/mL 30.0-1 00.0 Vitam in D defic iency has been defin ed by the Insti tute of Medic ine and an Endoc rine Socie ty pract ice guide line as a level of serum 25-OH vitam in D less than 20 ng/mL (1,2) . The Endoc rine Socie ty went on to furth er defin e vitam in D insuf ficie ncy as a level betwe en 21 and 29 ng/mL (2). 1. IOM (Inst itute of Medic ine). 2009. Keya ry refer ence intak es for calci um and D. Aldo beth [place]: The [facility] Press . 2. Eran gonzalez MF, Solis aparicio [place], Marie off-F errar i SORTO, et al. Evalu ation , treat ment, and preve ntion of vitam in D defic iency : an Endoc rine Socie ty clini earle pract ice guide line. JCEM. 2010; 96(7) :1911 -30. Not Available [facility] ([facility]) [address] [place], [address], 09/22/2022 08:23:32 09/22/19 23 09/24/2022 CBC WITH DIFFE RENTI AL/PL ATELE T WBC - x10e3 /uL Test not perfo rmed. The reque sted test was omitt ed peri viveros the order packer proce ss and the speci men is no longe r avail able for testi ng. Not Available [facility] ([facility]) [address] [place], [address], 09/24/2022 15:11:49 09/22/19 23 09/24/2022 CBC WITH DIFFE RENTI AL/PL ATELE T RBC - Test not perfo rmed Not Available [facility] ([facility]) [address] [place], [address], 09/24/2022 15:11:49 09/22/19 23 09/24/2022 CBC WITH DIFFE RENTI AL/PL ATELE T hemoglobin - Test not perfo rmed Not Available [facility] ([facility]) [address] [facility], [place], [address], 09/24/2022 15:11:49 09/22/19 23 09/24/2022 CBC WITH DIFFE RENTI AL/PL ATELE T hematocrit - Test not perfo rmed Not Available [facility] ([facility]) [address] [facility], [place], [address], 09/24/2022 15:11:49 09/22/19 23 09/24/2022 CBC WITH DIFFE RENTI AL/PL ATELE T platelets - Test not perfo rmed Not Available [facility] ([facility]) [address] [facility], [place], [address], 09/24/2022 15:11:49 09/22/19 23 09/24/2022 CBC WITH DIFFE RENTI AL/PL ATELE T neutrophils - Test not perfo rmed Not Available [facility] ([facility]) [address] [facility], [place], [address], 09/24/2022 15:11:49 09/22/19 23 09/24/2022 CBC WITH DIFFE RENTI AL/PL ATELE T lymphs - Test not perfo rmed Not Available [facility] ([facility]) [address] [facility], [place], [address], 09/24/2022 15:11:49 09/22/19 23 09/24/2022 CBC WITH DIFFE RENTI AL/PL ATELE T monocytes - Test not perfo rmed Not Available [facility] ([facility]) [address] [facility], [place], [address], 09/24/2022 15:11:49 09/22/19 23 09/24/2022 CBC WITH DIFFE RENTI AL/PL ATELE T eos - Test not perfo rmed Not Available [facility] ([facility]) [address] [facility], [place], [address], 09/24/2022 15:11:49 09/22/19 23 09/24/2022 CBC WITH DIFFE RENTI AL/PL ATELE T lymphs (absolute) - Test not perfo rmed Not Available [facility] ([facility]) [address] [facility], [place], [address], 09/24/2022 15:11:49 09/22/19 23 09/24/2022 CBC WITH DIFFE RENTI AL/PL ATELE T eos (absolute) - Test not perfo rmed Not Available [facility] ([facility]) [address] [facility], [place], [address], 09/24/2022 15:11:49 09/22/19 23 09/24/2022 CBC WITH DIFFE RENTI AL/PL ATELE T baso (absolute) - Test not perfo rmed Not Available [facility] ([facility]) [address] [facility], [place], [address], 09/24/2022 15:11:49 09/22/19 23 09/25/2022 LIPID PANEL WITH LDL/H DL RATIO cholesterol, total 210 mg/dL 100-19 9 above high normal Not Available [facility] ([facility]) [address] [facility], [place], [address], 09/25/2022 01:07:29 09/22/19 23 09/25/2022 LIPID PANEL WITH LDL/H DL RATIO triglyceride s 114 mg/dL 0-149 Not Available [facility] ([facility]) [address] [facility], [place], [address], 09/25/2022 01:07:29 09/22/19 23 09/25/2022 LIPID PANEL WITH LDL/H DL RATIO HDL cholesterol 67 mg/dL >39 Not Available [facility] ([facility]) [address] [facility] [place], [address], 09/25/2022 01:07:29 09/22/19 23 09/25/2022 LIPID PANEL WITH LDL/H DL RATIO VLDL cholesterol earle 20 mg/dL 5-40 Not Available [facility] ([facility]) [address] [place], [address], 09/25/2022 01:07:29 09/22/19 23 09/25/2022 LIPID PANEL WITH LDL/H DL RATIO LDL chol calc ([facility]) 123 mg/dL 0-99 above high normal Not Available [facility] ([facility]) [address] [place], [address], 09/25/2022 01:07:29 09/22/19 23 09/25/2022 LIPID PANEL WITH LDL/H DL RATIO LDL/HDL ratio 1.8 ratio 0.0-3. 2 LDL/H DL Ratio Men Women 1/2 Avg.R isk 1.0 1.5 Avg.R isk 3.6 3.2 2X Avg.R isk 6.2 5.0 3X Avg.R isk 8.0 6.1 Not Available [facility] ([facility]) [address] [place], [address], 09/25/2022 01:07:29 09/22/19 23 09/25/2022 COMP. METAB OLIC PANEL (14) glucose 88 mg/dL 70-99 Not Available [facility] ([facility]) [address] [place], [address], 09/25/2022 01:07:29 09/22/19 23 09/25/2022 COMP. METAB OLIC PANEL (14) BUN 14 mg/dL 6-24 Not Available [facility] ([facility]) [address] [place], [address], 09/25/2022 01:07:29 06/27/20 23 09/25/2022 COMP. METAB OLIC PANEL (14) creatinine 0.86 mg/dL 0.57-1 .00 Not Available [facility] ([facility]) [address] [facility], [place], [address], 09/25/2022 01:07:29 09/22/19 23 09/25/2022 COMP. METAB OLIC PANEL (14) eGFR 82 mL/mi n/1.7 3 >59 Not Available [facility] ([facility]) [address] [facility], [place], [address], 09/25/2022 01:07:29 09/22/19 23 09/25/2022 COMP. METAB OLIC PANEL (14) BUN/creatini ne ratio 16 9-23 Not Available [facility] ([facility]) [address] [facility], [place], [address], 09/25/2022 01:07:29 09/22/19 23 09/25/2022 COMP. METAB OLIC PANEL (14) sodium 142 mmol/ L 134-14 4 Not Available [facility] ([facility]) [address] [place], [address], 09/25/2022 01:07:29 09/22/19 23 09/25/2022 COMP. METAB OLIC PANEL (14) potassium 4.6 mmol/ L 3.5-5. 2 Not Available [facility] ([facility]) [address] [facility], [place], [address], 09/25/2022 01:07:29 09/22/19 23 09/25/2022 COMP. METAB OLIC PANEL (14) chloride 101 mmol/ L 96-106 Not Available [facility] ([facility]) [address] [place], [address], 09/25/2022 01:07:29 09/22/19 23 09/25/2022 COMP. METAB OLIC PANEL (14) carbon dioxide, total 23 mmol/ L 20-29 Not Available [facility] ([facility]) [address] [place], [address], 09/25/2022 01:07:29 09/22/19 23 09/25/2022 COMP. METAB OLIC PANEL (14) calcium 10.0 mg/dL 8.7-10 .2 Not Available [facility] ([facility]) [address] [place], [address], 09/25/2022 01:07:29 09/22/19 23 09/25/2022 COMP. METAB OLIC PANEL (14) protein, total 7.3 g/dL 6.0-8. 5 Not Available [facility] ([facility]) [address] [place], [address], 09/25/2022 01:07:29 09/22/19 23 09/25/2022 COMP. METAB OLIC PANEL (14) albumin 5.3 g/dL 3.8-4. 9 above high normal Eff ectiv e October 04, 2022 Album in refer ence inter imtiaz will be sarabia ing to: Age Male Femal e 0 - 7 days 3.6 - 4.9 3.6 - 4.9 8 - 30 days 3.5 - 4.6 3.5 - 4.6 1 - 6 month s 3.7 - 4.8 3.7 - 4.8 7 month s - 2 years 4.0 - 5.0 4.0 - 5.0 3 - 5 years 4.1 - 5.0 4.1 - 5.0 6 - 12 years 4.2 - 5.0 4.2 - 5.0 13 - 30 years 4.3 - 5.2 4.0 - 5.0 31 - 50 years 4.1 - 5.1 3.9 - 4.9 51 - 60 years 3.8 - 4.9 3.8 - 4.9 61 - 70 years 3.9 - 4.9 3.9 - 4.9 71 - 80 years 3.8 - 4.8 3.8 - 4.8 81 - 89 years 3.7 - 4.7 3.7 - 4.7 90 - 199 years 3.6 - 4.6 3.6 - 4.6 Not Available [facility] ([facility]) [address] [place], [address], 09/25/2022 01:07:29 09/22/19 23 09/25/2022 COMP. METAB OLIC PANEL (14) globulin, total 2.0 g/dL 1.5-4. 5 Not Available [facility] ([facility]) [address] [place], [address], 09/25/2022 01:07:29 09/22/19 23 09/25/2022 COMP. METAB OLIC PANEL (14) A/G ratio 2.7 1.2-2. 2 above high normal Not Available [facility] ([facility]) [address] [place], [address], 09/25/2022 01:07:29 09/22/19 23 09/25/2022 COMP. METAB OLIC PANEL (14) bilirubin, total 0.2 mg/dL 0.0-1. 2 Not Available [facility] ([facility]) [address] [place], [address], 09/25/2022 01:07:29 09/22/19 23 09/25/2022 COMP. METAB OLIC PANEL (14) alkaline phosphatase 57 IU/L 44-121 Not Available [facility] ([facility]) [address] [place], [address], 09/25/2022 01:07:29 09/22/19 23 09/25/2022 COMP. METAB OLIC PANEL (14) AST (SGOT) 17 IU/L 0-40 Not Available [facility] ([facility]) [address] [place], [address], 09/25/2022 01:07:29 09/22/19 23 09/25/2022 COMP. METAB OLIC PANEL (14) ALT (SGPT) 19 IU/L 0-32 Not Available [facility] ([facility]) [address] [facility], [place], [address], 09/25/2022 01:07:29 09/22/19 23 09/24/2022 WRITT EN AUTHO RIZAT ION written authorizatio n Commen t Writt en Autho rizat ion Recei danielle. Autho rizat ion recei danielle from [employer] n[employer]qui sitio n 09-24 Logge d by Mercedes Snow Not Available [facility] ([facility]) [address] [facility], [place], [address], 09/25/2022 01:07:30 09/22/19 23 09/24/2022 SPECI MEN STATU S REPOR T specimen status report TNP Test not perfo rmed. 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 TEST: [id number] CBC With Diffe renti al/Pl atele t Not Available [facility] ([facility]) [address] [facility], [place], [address], 09/24/2022 15:11:47 08/16/19 24 08/16/2023 LIPID PANEL WITH LDL/H DL RATIO cholesterol, total 232 mg/dL 100-19 9 above high normal Not Available [facility] Department [address] [place], [address], 08/16/2023 21:07:54 08/16/19 24 08/16/2023 LIPID PANEL WITH LDL/H DL RATIO triglyceride s 194 mg/dL 0-149 above high normal Not Available [facility] Department [address] [place], [address], 08/16/2023 21:07:54 08/16/19 24 08/16/2023 LIPID PANEL WITH LDL/H DL RATIO HDL cholesterol 74 mg/dL 40-[address] [facility] Department [address] [place], [address], 08/16/2023 21:07:54 08/16/19 24 08/16/2023 LIPID PANEL WITH LDL/H DL RATIO VLDL cholesterol earle 39 mg/dL 5-[address] [facility] Department [address] [place] [address], [address], 08/16/2023 21:07:54 08/16/19 24 08/16/2023 LIPID PANEL WITH LDL/H DL RATIO LDL chol calc ([facility]) 147 mg/dL 0-99 above high normal Not Available [facility] Department [address] [place] [address], [address], 08/16/2023 21:07:54 08/16/19 24 08/16/2023 LIPID PANEL WITH LDL/H DL RATIO LDL/HDL ratio 2.0 0-3.[address] [facility] Department [address] [place] [address], [address], 08/16/2023 21:07:54 08/16/19 24 08/16/2023 COMP. METAB OLIC PANEL (14) glucose 88 mg/dL 70-99 Not Available [facility] Department [address] [place] [address], [address], 08/16/2023 21:07:55 08/16/19 24 08/16/2023 COMP. METAB OLIC PANEL (14) BUN 17 mg/dL 6-24 Not Available [facility] Department [address] [place] [address], [address], 08/16/2023 21:07:55 08/16/19 24 08/16/2023 COMP. METAB OLIC PANEL (14) creatinine 0.82 mg/dL 0.76-1 .27 Not Available [facility] Department [address] [place] [address], [address], 08/16/2023 21:07:55 08/16/19 24 08/16/2023 COMP. METAB OLIC PANEL (14) eGFR 86 >=60 Units for eGFR value s are mL/mi n/1.7 3 The eGFR Calcu latio n has not been valid ated for patie nts under the age of 18. If test resul ts are displ ayed for a patie nt under the age of 18, disre rajwinder that value . Not Available [facility] Department [address] [place] [address], [address], 08/16/2023 21:07:55 08/16/19 24 08/16/2023 COMP. METAB OLIC PANEL (14) BUN/creatini ne ratio 15 12- Not Available [facility] Department [address] [place] [address], [address], 08/16/2023 21:07:55 08/16/19 24 08/16/2023 COMP. METAB OLIC PANEL (14) sodium 145 mmol/ L 134-14 4 above high normal Not Available [facility] Department [address] [place] [address], [address], 08/16/2023 21:07:55 08/16/19 24 08/16/2023 COMP. METAB OLIC PANEL (14) potassium 5.0 mmol/ L 3.5-5. 2 Not Available [facility] Department [address] [place] [address], [address], 08/16/2023 21:07:55 08/16/19 24 08/16/2023 COMP. METAB OLIC PANEL (14) chloride 104 mmol/ L 96-106 Not Available [facility] Department [address] [place] [address], [address], 08/16/2023 21:07:55 08/16/19 24 08/16/2023 COMP. METAB OLIC PANEL (14) carbon dioxide, total 25 mmol/ L 20-29 Not Available [facility] Department [address] [place] [address], [address], 08/16/2023 21:07:55 08/16/19 24 08/16/2023 COMP. METAB OLIC PANEL (14) calcium 10.2 mg/dL 8.7-10 .2 Not Available [facility] Department [address] [place] [address], [address], 08/16/2023 21:07:55 08/16/19 24 08/16/2023 COMP. METAB OLIC PANEL (14) protein, total 8.1 g/dL 6.0-8. 5 Not Available [facility] Department [address] [place], [address], 08/16/2023 21:07:55 08/16/19 24 08/16/2023 COMP. METAB OLIC PANEL (14) albumin 5.2 g/dL 3.8-4. 9 above high normal Not Available [facility] Department [address] [place] [address], [address], 08/16/2023 21:07:55 08/16/19 24 08/16/2023 COMP. METAB OLIC PANEL (14) globulin, total 2.9 g/dL 1.5-4. 5 Not Available [facility] Department [address] [place], [address], 08/16/2023 21:07:55 08/16/19 24 08/16/2023 COMP. METAB OLIC PANEL (14) A/G ratio 2.0 1.2-2. 2 Not Available [facility] Department [address] [place], [address], 08/16/2023 21:07:55 08/16/19 24 08/16/2023 COMP. METAB OLIC PANEL (14) bilirubin, total 0.3 mg/dL 0.0-1. 2 Not Available [facility] Department [address] [place], [address], 08/16/2023 21:07:55 08/16/19 24 08/16/2023 COMP. METAB OLIC PANEL (14) alkaline phosphatase 74 IU/L 44-[address] [facility] Department [address] [place], [address], 08/16/2023 21:07:55 08/16/19 24 08/16/2023 COMP. METAB OLIC PANEL (14) AST (SGOT) 23 IU/L 0-40 Not Available [facility] Department [address] [place], [address], 08/16/2023 21:07:55 08/16/19 24 08/16/2023 COMP. METAB OLIC PANEL (14) ALT (SGPT) 25 IU/L 0-32 Not Available [facility] Department [address] [place], [address], 08/16/2023 21:07:55 08/16/19 24 08/16/2023 CBC WITH DIFFE RENTI AL/PL ATELE T WBC 5.5 x10e3 /uL 3.4-10 .8 Not Available [facility] Department [address] [place], [address], 08/16/2023 21:07:56 08/16/19 24 08/16/2023 CBC WITH DIFFE RENTI AL/PL ATELE T RBC 5.06 x10e6 /uL 3.77-5 .28 Not Available [facility] Department [address] [place], [address], 08/16/2023 21:07:56 08/16/19 24 08/16/2023 CBC WITH DIFFE RENTI AL/PL ATELE T hemoglobin 15.8 g/dL 11.1-1 5.9 Not Available [facility] Department [address] [place], [address], 08/16/2023 21:07:56 08/16/19 24 08/16/2023 CBC WITH DIFFE RENTI AL/PL ATELE T hematocrit 48.0 % 34.0-4 6.6 above high normal Not Available [facility] Department [address] [place], [address], 08/16/2023 21:07:56 08/16/19 24 08/16/2023 CBC WITH DIFFE RENTI AL/PL ATELE T MCV 95 fL 79-97 Not Available [facility] Department [address] [place], [address], 08/16/2023 21:07:56 08/16/19 24 08/16/2023 CBC WITH DIFFE RENTI AL/PL ATELE T MCH 31.2 pg 26.6-3 3.0 Not Available [facility] Department [address] [place], [address], 08/16/2023 21:07:56 08/16/19 24 08/16/2023 CBC WITH DIFFE RENTI AL/PL ATELE T MCHC 32.9 g/dL 31.5-3 5.7 Not Available [facility] Department [address] [place], [address], 08/16/2023 21:07:56 08/16/19 24 08/16/2023 CBC WITH DIFFE RENTI AL/PL ATELE T RDW 12.7 % 11.5-1 4.5 Not Available [facility] Department [address] [place], [address], 08/16/2023 21:07:56 08/16/19 24 08/16/2023 CBC WITH DIFFE RENTI AL/PL ATELE T platelets 319 x10e3 /uL 150-45 0 Not Available [facility] Department [address] [place], [address], 08/16/2023 21:07:56 08/16/19 24 08/16/2023 CBC WITH DIFFE RENTI AL/PL ATELE T neutrophils 60 % notest b. Not Available [facility] Department [address] [place], [address], 08/16/2023 21:07:56 08/16/19 24 08/16/2023 CBC WITH DIFFE RENTI AL/PL ATELE T lymphs 31 % notest b. Not Available [facility] Department [address] [place], [address], 08/16/2023 21:07:56 08/16/19 24 08/16/2023 CBC WITH DIFFE RENTI AL/PL ATELE T monocytes 7 % notest b. Not Available [facility] Department [address] [place], [address], 08/16/2023 21:07:56 08/16/19 24 08/16/2023 CBC WITH DIFFE RENTI AL/PL ATELE T eos 2 % notest b. Not Available [facility] Department [address] [place], [address], 08/16/2023 21:07:56 08/16/19 24 08/16/2023 CBC WITH DIFFE RENTI AL/PL ATELE T basos 0 % notest b. Not Available [facility] Department [address] [place], [address], 08/16/2023 21:07:56 08/16/19 24 08/16/2023 CBC WITH DIFFE RENTI AL/PL ATELE T neutrophils (absolute) 3.3 x10e3 /uL 1.4-7. 0 Not Available [facility] Department [address] [place], [address], 08/16/2023 21:07:56 08/16/19 24 08/16/2023 CBC WITH DIFFE RENTI AL/PL ATELE T lymphs (absolute) 1.7 x10e3 /uL 0.7-3. 1 Not Available [facility] Department [address] [place], [address], 08/16/2023 21:07:56 08/16/19 24 08/16/2023 CBC WITH DIFFE RENTI AL/PL ATELE T monocytes(ab solute) 0.4 x10e3 /uL 0.1-0. 9 Not Available [facility] Department [address] [place], [address], 08/16/2023 21:07:56 08/16/19 24 08/16/2023 CBC WITH DIFFE RENTI AL/PL ATELE T eos (absolute) 0.1 x10e3 /uL 0.0-0. 4 Not Available [facility] Department [address] [place], [address], 08/16/2023 21:07:56 08/16/19 24 08/16/2023 CBC WITH DIFFE RENTI AL/PL ATELE T baso (absolute) 0.0 x10e3 /uL 0.0-0. 2 Not Available [facility] Department [address] [place], [address], 08/16/2023 21:07:56 08/16/19 24 08/16/2023 CBC WITH DIFFE RENTI AL/PL ATELE T immature granulocytes 0.4 % notest b. Not Available [facility] Department [address] [place], [address], 08/16/2023 21:07:56 08/16/19 24 08/16/2023 CBC WITH DIFFE RENTI AL/PL ATELE T immature grans (abs) 0.0 x10e3 /uL 0.0-0. 1 Not Available [facility] Department [address] [place], [address], 08/16/2023 21:07:56 08/16/19 24 08/16/2023 CBC WITH DIFFE RENTI AL/PL ATELE T NRBC 0 % 0-0 Not Available [facility] Department [address] [place], [address], 08/16/2023 21:07:56 08/16/19 24 08/17/2023 TSH+F REE T4 TSH 1.330 uIU/m L 0.450- 4.500 Not Available [facility] ([facility]) [address] [facility], [place], [address], 08/18/2023 08:30:14 08/16/19 24 08/17/2023 TSH+F REE T4 T4,free(dire ct) 1.23 NG/dL 0.82-1 .77 Not Available [facility] ([facility]) [address] [facility], [place], [address], 08/18/2023 08:30:14 08/16/19 24 08/17/2023 HEMOG LOBIN A1C hemoglobin A1C 5.7 % 4.8-5. 6 above high normal Predi abete s: 5.7 - 6.4 Diabe lefty: >6.4 Glyce aby contr ol for adult s with diabe lefty: <7.0 Not Available [facility] ([facility]) [address] [facility], [place], [address], 08/18/2023 08:30:15 08/16/19 24 08/18/2023 VITAM IN D, 25-HY DROXY vitamin D, 25-hydroxy 36.1 NG/mL 30.0-1 00.0 Vitam in D defic iency has been defin ed by the Insti tute of Medic ine and an Endoc rine Socie ty pract ice guide line as a level of serum 25-OH vitam in D less than 20 ng/mL (1,2) . The Endoc rine Socie ty went on to furth er defin e vitam in D insuf ficie ncy as a level betwe en 21 and 29 ng/mL (2). 1. IOM (Inst itute of Medic ine). 2010. Dieta ry refer ence intak es for calci um and D. Aldo beth DC: The Natio nal [facility] Press . 2. Eran gonzalez MF, Solis aparicio [place], Marie off-F errar i SORTO, et al. Evalu ation , treat ment, and preve ntion of vitam in D defic iency : an Endoc rine Socie ty clini earle pract ice guide line. JCEM. 2010; 96(7) :1911 -30. Not Available [facility] ([facility]) [address] [facility], [place], [address], 08/18/2023 08:30:16 11/22/19 25 11/22/2024 LIPID PANEL WITH LDL/H DL RATIO cholesterol, total 208 mg/dL 100-19 9 above high normal Not Available [facility] ([facility]) [address] [place], [address], 11/22/2024 08:25:35 11/22/19 25 11/22/2024 LIPID PANEL WITH LDL/H DL RATIO triglyceride s 195 mg/dL 0-149 above high normal Not Available [facility] ([facility]) [address] [place], [address], 11/22/2024 08:25:35 11/22/19 25 11/22/2024 LIPID PANEL WITH LDL/H DL RATIO HDL cholesterol 57 mg/dL >39 Not Available [facility] ([facility]) [address] [place], [address], 11/22/2024 08:25:35 11/22/19 25 11/22/2024 LIPID PANEL WITH LDL/H DL RATIO VLDL cholesterol earle 34 mg/dL 5-40 Not Available [facility] ([facility]) [address] [place], [address], 11/22/2024 08:25:35 11/22/19 25 11/22/2024 LIPID PANEL WITH LDL/H DL RATIO LDL chol calc ([facility]) 117 mg/dL 0-99 above high normal Not Available [facility] ([facility]) [address] [place], [address], 11/22/2024 08:25:35 11/22/19 25 11/22/2024 LIPID PANEL WITH LDL/H DL RATIO LDL/HDL ratio 2.1 ratio 0.0-3. 2 LDL/H DL Ratio Men Women 1/2 Avg.R isk 1.0 1.5 Avg.R isk 3.6 3.2 2X Avg.R isk 6.2 5.0 3X Avg.R isk 8.0 6.1 Not Available [facility] ([facility]) [address] [place], [address], 11/22/2024 08:25:35 11/22/1911/22/2024 CBC WITH DIFFE RENTI AL/PL ATELE T WBC 6.4 x10e3 /uL 3.4-10 .8 Not Available [facility] ([facility]) [address] [place], [address], 11/22/2024 08:25:36 11/22/19 25 11/22/2024 CBC WITH DIFFE RENTI AL/PL ATELE T RBC 4.94 x10e6 /uL 3.77-5 .28 Not Available [facility] ([facility]) [address] [facility], [place], [address], 11/22/2024 08:25:36 11/22/1911/22/2024 CBC WITH DIFFE RENTI AL/PL ATELE T hemoglobin 15.3 g/dL 11.1-1 5.9 Not Available [facility] ([facility]) [address] [place], [address], 11/22/2024 08:25:36 11/22/1911/22/2024 CBC WITH DIFFE RENTI AL/PL ATELE T hematocrit 46.9 % 34.0-4 6.6 above high normal Not Available [facility] ([facility]) [address] [place], [address], 11/22/2024 08:25:36 11/22/1911/22/2024 CBC WITH DIFFE RENTI AL/PL ATELE T MCV 95 fL 79-97 Not Available [facility] ([facility]) [address] [place], [address], 11/22/2024 08:25:36 11/22/19 25 11/22/2024 CBC WITH DIFFE RENTI AL/PL ATELE T MCH 31.0 pg 26.6-3 3.0 Not Available [facility] ([facility]) [address] [facility], [place], [address], 11/22/2024 08:25:36 11/22/19 25 11/22/2024 CBC WITH DIFFE RENTI AL/PL ATELE T MCHC 32.6 g/dL 31.5-3 5.7 Not Available [facility] ([facility]) [address] [facility], [place], [address], 11/22/2024 08:25:36 11/22/19 25 11/22/2024 CBC WITH DIFFE RENTI AL/PL ATELE T RDW 12.8 % 11.7-1 5.4 Not Available [facility] ([facility]) [address] [facility], [place], [address], 11/22/2024 08:25:36 11/22/19 25 11/22/2024 CBC WITH DIFFE RENTI AL/PL ATELE T platelets 295 x10e3 /uL 150-45 0 Not Available [facility] ([facility]) [address] [facility], [place], [address], 11/22/2024 08:25:36 11/22/19 25 11/22/2024 CBC WITH DIFFE RENTI AL/PL ATELE T neutrophils 63 % notest ab. Not Available [facility] ([facility]) [address] [facility], [place], [address], 11/22/2024 08:25:36 11/22/19 25 11/22/2024 CBC WITH DIFFE RENTI AL/PL ATELE T lymphs 29 % notest ab. Not Available [facility] ([facility]) [address] [facility], [place], [address], 11/22/2024 08:25:36 11/22/19 25 11/22/2024 CBC WITH DIFFE RENTI AL/PL ATELE T monocytes 6 % notest ab. Not Available [facility] ([facility]) [address] [facility], [place], [address], 11/22/2024 08:25:36 11/22/1911/22/2024 CBC WITH DIFFE RENTI AL/PL ATELE T eos 1 % notest ab. Not Available [facility] ([facility]) [address] [facility], [place], [address], 11/22/2024 08:25:36 11/22/19 25 11/22/2024 CBC WITH DIFFE RENTI AL/PL ATELE T basos 1 % notest ab. Not Available [facility] ([facility]) [address] [facility], [place], [address], 11/22/2024 08:25:36 11/22/19 25 11/22/2024 CBC WITH DIFFE RENTI AL/PL ATELE T neutrophils (absolute) 4.0 x10e3 /uL 1.4-7. 0 Not Available [facility] ([facility]) [address] [facility], [place], [address], 11/22/2024 08:25:36 11/22/1911/22/2024 CBC WITH DIFFE RENTI AL/PL ATELE T lymphs (absolute) 1.9 x10e3 /uL 0.7-3. 1 Not Available [facility] ([facility]) [address] [place], [address], 11/22/2024 08:25:36 11/22/1911/22/2024 CBC WITH DIFFE RENTI AL/PL ATELE T monocytes(ab solute) 0.4 x10e3 /uL 0.1-0. 9 Not Available [facility] ([facility]) [address] [place], [address], 11/22/2024 08:25:36 11/22/19 25 11/22/2024 CBC WITH DIFFE RENTI AL/PL ATELE T eos (absolute) 0.1 x10e3 /uL 0.0-0. 4 Not Available [facility] ([facility]) [address] [facility], [place], [address], 11/22/2024 08:25:36 11/22/19 25 11/22/2024 CBC WITH DIFFE RENTI AL/PL ATELE T baso (absolute) 0.0 x10e3 /uL 0.0-0. 2 Not Available [facility] ([facility]) [address] [facility], [place], [address], 11/22/2024 08:25:36 11/22/19 25 11/22/2024 CBC WITH DIFFE RENTI AL/PL ATELE T immature granulocytes 0 % notest ab. Not Available [facility] ([facility]) [address] [facility], [place], [address], 11/22/2024 08:25:36 11/22/19 25 11/22/2024 CBC WITH DIFFE RENTI AL/PL ATELE T immature grans (abs) 0.0 x10e3 /uL 0.0-0. 1 Not Available [facility] ([facility]) [address] [facility], [place], [address], 11/22/2024 08:25:36 11/22/19 25 11/22/2024 TSH+F REE T4 TSH 1.290 uIU/m L 0.450- 4.500 Not Available [facility] ([facility]) [address] [place], [address], 11/22/2024 10:13:14 11/22/19 25 11/22/2024 TSH+F REE T4 T4,free(dire ct) 1.11 NG/dL 0.82-1 .77 Not Available [facility] ([facility]) [address] [facility], [place], [address], 11/22/2024 10:13:14 11/22/19 25 11/21/2024 COMP. METAB OLIC PANEL (14) interpretati on: COMMEN T GFR estim ate at the follo wing level for >or=3 month s is class ified as follo ws: GFR WITH KIDNE Y DAMAG E WITHO UT KIDNE Y DAMAG E >or=9 0 Stage 1 Sunitha l 60-89 Stage 2 Decr eased GFR 30-59 Stage 3 Stage 3 15-29 Stage 4 Stage 4 <15 (or dialy sis) Stage 5 Stage 5 Estim ated GFR will over estim ate true GFR if serum creat inine is risin g as in acute renal failu re and will under estim ate true GFR if serum creat inine is decli isa as in resol ving acute renal failu re. Addit ional infor matramses n may be found at [email or web address] [employer]. org. Not Available [facility] ([facility]) [address] [place], [address], 11/22/2024 10:13:15 11/22/19 25 11/22/2024 COMP. METAB OLIC PANEL (14) glucose 110 mg/dL 70-99 above high normal Not Available [facility] ([facility]) [address] [place], [address], 11/22/2024 10:13:15 11/22/19 25 11/22/2024 COMP. METAB OLIC PANEL (14) BUN 13 mg/dL 6-24 Not Available [facility] ([facility]) [address] [place], [address], 11/22/2024 10:13:15 11/22/19 25 11/22/2024 COMP. METAB OLIC PANEL (14) creatinine 0.73 mg/dL 0.57-1 .00 Not Available [facility] ([facility]) [address] [place], [address], 11/22/2024 10:13:15 11/22/19 25 11/22/2024 COMP. METAB OLIC PANEL (14) eGFR 98 mL/mi n/1.7 3 >59 Not Available [facility] ([facility]) [address] [place], [address], 11/22/2024 10:13:15 11/22/19 25 11/22/2024 COMP. METAB OLIC PANEL (14) BUN/creatini ne ratio 18 9-23 Not Available [facility] ([facility]) [address] [facility], [place], [address], 11/22/2024 10:13:15 11/22/19 25 11/22/2024 COMP. METAB OLIC PANEL (14) sodium 140 mmol/ L 134-14 4 Not Available [facility] ([facility]) [address] [facility], [place], [address], 11/22/2024 10:13:15 11/22/19 25 11/22/2024 COMP. METAB OLIC PANEL (14) potassium 4.5 mmol/ L 3.5-5. 2 Not Available [facility] ([facility]) [address] [facility], [place], [address], 11/22/2024 10:13:15 11/22/19 25 11/22/2024 COMP. METAB OLIC PANEL (14) chloride 102 mmol/ L 96-106 Not Available [facility] ([facility]) [address] [facility], [place], [address], 11/22/2024 10:13:15 11/22/19 25 11/22/2024 COMP. METAB OLIC PANEL (14) carbon dioxide, total 20 mmol/ L 20-29 Not Available [facility] ([facility]) [address] [facility], [place], [address], 11/22/2024 10:13:15 11/22/19 25 11/22/2024 COMP. METAB OLIC PANEL (14) calcium 9.6 mg/dL 8.7-10 .2 Not Available [facility] ([facility]) [address] [place], [address], 11/22/2024 10:13:15 11/22/19 25 11/22/2024 COMP. METAB OLIC PANEL (14) protein, total 7.1 g/dL 6.0-8. 5 Not Available [facility] ([facility]) [address] [place], [address], 11/22/2024 10:13:15 11/22/19 25 11/22/2024 COMP. METAB OLIC PANEL (14) albumin 4.9 g/dL 3.8-4. 9 Not Available [facility] ([facility]) [address] [facility], [place], [address], 11/22/2024 10:13:15 11/22/19 25 11/22/2024 COMP. METAB OLIC PANEL (14) globulin, total 2.2 g/dL 1.5-4. 5 Not Available [facility] ([facility]) [address] [facility], [place], [address], 11/22/2024 10:13:15 11/22/19 25 11/22/2024 COMP. METAB OLIC PANEL (14) bilirubin, total 0.2 mg/dL 0.0-1. 2 Not Available [facility] ([facility]) [address] [place], [address], 11/22/2024 10:13:15 11/22/19 25 11/22/2024 COMP. METAB OLIC PANEL (14) alkaline phosphatase 76 IU/L 44-121 Not Available [facility] ([facility]) [address] [facility], [place], [address], 11/22/2024 10:13:15 11/22/19 25 11/22/2024 COMP. METAB OLIC PANEL (14) AST (SGOT) 22 IU/L 0-40 Not Available [facility] ([facility]) [address] [place], [address], 11/22/2024 10:13:15 11/22/19 25 11/22/2024 COMP. METAB OLIC PANEL (14) ALT (SGPT) 29 IU/L 0-32 Not Available [facility] ([facility]) [address] [facility], [place], [address], 11/22/2024 10:13:15 11/22/19 25 11/22/2024 HEMOG LOBIN A1C hemoglobin A1C 5.6 % 4.8-5. 6 Predi abete s: 5.7 - 6.4 Diabe lefty: >6.4 Glyce aby contr ol for adult s with diabe lefty: <7.0 Not Available [facility] ([facility]) [address] [facility], [place], [address], 11/22/2024 10:13:16 12/05/1912/05/2024 IGP, APTIM A HPV, RFX 16/18 ,45 HPV aptima NEGATI VE negati ve This nucle ic acid ampli ficat ion test detec ts fourt een high- risk HPV types (16,1 8,31, 33,35 ,39,4 5,51, 52,56 ,58,5 9,66, 68) witho ut diffe renti ation . Not Available [facility] ([facility]) [address] [facility], [place], [address], 12/06/2024 09:55:24 12/05/19 25 12/06/2024 IGP, APTIM A HPV, RFX 16/18 ,45 diagnosis: COMMEN T NEGAT RACHELL FOR INTRA EPITH ELIAL LESIO N OR KATELYNN BUSTILLO . Not Available [facility] ([facility]) [address] [facility], [place], [address], 12/06/2024 09:55:24 12/05/1912/06/2024 IGP, APTIM A HPV, RFX 16/18 ,45 specimen adequacy: COMMEN T Satis facto ry for evalu ation . Endoc ervic al and/o r squam ous metap lasti c cells (endo cervi earle compo nent) are prese nt. Not Available [facility] ([facility]) [address] [place], [address], 12/06/2024 09:55:24 12/05/19 25 12/06/2024 IGP, APTIM A HPV, RFX 16/18 ,45 clinician provided ICD10: SIGIFREDO Larry Z12.4 Not Available [facility] ([facility]) [address] [place], [address], 12/06/2024 09:55:24 12/05/19 25 12/06/2024 IGP, APTIM A HPV, RFX 16/18 ,45 performed by: SIGIFREDO chaves, Cytol ogist (ASCP ) Not Available [facility] ([facility]) [address] [place], [address], 12/06/2024 09:55:24 12/05/19 25 12/06/2024 IGP, APTIM A HPV, RFX 16/18 ,45 . . Not Available [facility] ([facility]) [address] [place], [address], 12/06/2024 09:55:24 12/05/1912/06/2024 IGP, APTIM A HPV, RFX 16/18 ,45 note: SIGIFREDO Larry The Pap smear is a scree isa test desig javan to aid in the detec tion of viet ligna nt and malig nant condi tions of the uteri ne cervi x. It is not a diagn ostic proce dure and shoul d not be used as the sole means of detec ting cervi earle cance r. Both false -posi tive and false -nega tive repor ts do occur . Not Available [facility] ([facility]) [address] [place], [address], 12/06/2024 09:55:24 12/05/19 25 12/06/2024 IGP, APTIM A HPV, RFX 16/18 ,45 test methodology: COMMEN T This liqui d based ThinP rep(R ) pap test was consuelo edouard with the use of an image guide eboni jain. Not Available [facility] ([facility]) [address] [place], [address], 12/06/2024 09:55:24 12/05/1912/06/2024 IGP, APTIM A HPV, RFX 16/18 ,45 HPV genotype reflex COMMEN T Crite norah not met, HPV Genot ype not perfo rmed. Not Available [facility] ([facility]) [address] [facility], [place], [address], 12/06/2024 09:55:24 12/05/1912/06/2024 NUSWA B VG+, HSV hsv 1 MO NEGATI VE negati ve Not Available [facility] ([facility]) [address] [place], [address], 12/07/2024 12:17:25 12/05/1912/06/2024 NUSWA B VG+, HSV hsv 2 MO NEGATI VE negati ve Not Available [facility] ([facility]) [address] [place], [address], 12/07/2024 12:17:25 12/05/19 25 12/07/2024 NUSWA B VG+, HSV atopobium vaginae HIGH - 2 score abnormal Not Available [facility] ([facility]) [address] [place], [address], 12/07/2024 12:17:25 12/05/1912/07/2024 NUSWA B VG+, HSV bvab 2 HIGH - 2 score abnormal Not Available [facility] ([facility]) [address] [place], [address], 12/07/2024 12:17:25 12/05/19 25 12/07/2024 NUSWA B VG+, HSV megasphaera 1 HIGH - 2 score abnormal Calcu late total score by compa viveros the 3 indiv idual bacte rial vagin osis (BV) marke r score s toget her. Total score is inter prete d as follo ws: Total score 0-1: Indic ates the absen ce of BV. Total score 2: Indet ermin ate for BV. Addit ional clini earle data shoul d be evalu ated to estab teagan a diagn osis. Total score 3-6: Indic ates the prese nce of BV. Not Available [facility] ([facility]) [address] [facility], [place], [address], 12/07/2024 12:17:25 12/05/1912/07/2024 NUSWA B VG+, HSV yinka albicans, MO NEGATI VE negati ve Not Available [facility] ([facility]) [address] [place], [address], 12/07/2024 12:17:25 12/05/1912/07/2024 NUSWA B VG+, HSV yinka glabrata, [place] NEGATI VE negati ve Not Available [facility] ([facility]) [address] [place], [address], 12/07/2024 12:17:25 12/05/1912/07/2024 NUSWA B VG+, HSV trich vag by MO NEGATI VE negati ve Not Available [facility] ([facility]) [address] [place], [address], 12/07/2024 12:17:25 12/05/1912/07/2024 NUSWA B VG+, HSV chlamydia trachomatis, MO NEGATI VE negati ve Not Available [facility] ([facility]) [address] [place], [address], 12/07/2024 12:17:25 12/05/1912/07/2024 NUSWA B VG+, HSV neisseria gonorrhoeae, MO NEGATI VE negati ve Not Available [facility] ([facility]) [address], [place], [address], 12/07/2024 12:17:25 12/15/19 22 12/12/2021 MAMMO , scree isa, bilat eral No observ ation record ed. [address] [facility], [place], [address], 12/14/2021 14:58:09 12/15/19 22 12/12/2021 MAMMO , scree isa, bilat eral No observ ation record ed. [address] [address], [place], [address], 12/14/2021 13:55:54 01/06/20 22 01/04/2022 MAMMO , diagn ostic , unila teral No observ ation record ed. [address] [address], [place], [address], 01/06/2022 15:50:18 11/23/19 25 10/24/2023 PFT, compl ete No observ ation record ed. [address] [address], [place], [address], 11/22/2024 16:42:49 01/03/20 25 01/01/2025 CT, abdom en + pelvi s, w/ contr ast No observ ation record ed. [address] [address], [place], [address], 01/02/2025 11:51:08 01/16/20 25 01/15/2025 US, pelvi s, trans abdom inal + trans vagin al No observ ation record ed. [facility] [address] [place], [address], 01/16/2025 14:08:47 Result Notes None recorded. Problems Name Problem SNOMED Code Status Onset Date Resolution Date Notes Provider Name and Address Organization Details Recorded Time Dyspnea on exertion 84703644 Active 2017 LYSSA Cain NP Attn: Addis viveros,[address] [facility], [place], [address], [place] - [facility] 8 12:00:36 Chronic obstructive pulmonary disease 99776899 Active 2021 PARMJIT LEE Attn: Addis viveros,[address] [facility], [place], [address], [place] [facility] 2 11:13:12 History of malignant neoplasm of breast 365898048 Active 2021 R mastec cece, chemo, 2009 PARMJIT LEE Attn: Addis viveros,[address] [facility], [place], [address], [place] [facility] 2 11:28:15 Mammography abnormal 790857297 Active 2021 PARMJIT LEE Attn: Addis viveros,[address] [facility], [place], [address], [place] [facility] 2 13:56:06 Problem Notes None recorded. Procedures Surgical History Date Name Laterality Status Provider Name and Address Organization Details Recorded Time 9 Date of Last Mammogram completed Lisbet Ellis MA [facility] 01/09/2020 11:10:18 8 Date of Last Pap Smear completed Lisbet Ellis MA [facility] 01/09/2020 11:10:40 0 Mastectomy completed PARMJIT LEE Attn: Accounting,[address] [place], [address], [place] [facility] 09/16/2021 11:27:51 5 Tubal Ligation completed PARMJIT LEE Attn: Accounting,[address] [place], [place], [address] [place] [address], [facility] - [facility] 09/16/2021 11:27:41 Imaging Results None recorded. Procedure Notes None recorded. Medical Equipment None Reported. Allergies Allergen ID Allergen Name Allergen Category Reaction Reaction Severity Criticality Documentation Date Start Date Code Code System Note Provider Name and Address Organization Details Recorded Time [address]40 animal dander environme nt wheezing severe Not available 08/13/2016 Nichol Burton MA null, [place] - [facility] 7 10:07:31 Medications Name Sig Start Date Stop Date Status Note LastModified by Organization Details LastModified Time Prescriptio n - Prior Authorizati on Request 09/29 completed Not Available Not Available Not Available ipratropium 0.5 mg-albutero l 3 mg (2.5 mg base)/3 mL nebulizatio n soln Inhale 3 mL by nebulizat ion route as directed. 01/30 completed Not Available Not Available Not Available azithromyci n 250 mg tablet 08/25 completed Not Available Not Available Not Available prednisone 20 mg tablet 08/13 completed Not Available Not Available Not Available penicillin V potassium 500 mg tablet TAKE 1 TABLET BY MOUTH EVERY 12 HOURS FOR 10 DAYS 08/15 completed Not Available Not Available Not Available metronidazo le 500 mg tablet Take 1 tablet every 12 hours by oral route with meal(s) for 7 days. 12/21 completed Not Available Not Available Not Available peg-electro lyte solution 420 gram oral solution FPD 09/16 completed Not Available Not Available Not Available amoxicillin 875 mg tablet Take 1 tablet every 12 hours by oral route. 05/24 completed Not Available Not Available Not Available citalopram 20 mg tablet Take 1 tablet every day by oral route. 01/30 completed Not Available Not Available Not Available prednisone 50 mg tablet 08/25 completed Not Available Not Available Not Available promethazin e 25 mg tablet TK SS T PO Q 6 H 09/16 completed Not Available Not Available Not Available Qvar 40 mcg/actuati on Metered Aerosol oral inhaler INHALE 2 PUFFS BY MOUTH TWICE DAILY 08/17 completed Not Available Not Available Not Available sertraline 25 mg tablet TAKE 1 TABLET BY MOUTH EVERY DAY AT BEDTIME 05/24 completed Not Available Not Available Not Available montelukast 10 mg tablet TAKE 1 TABLET BY MOUTH EVERY DAY AT BEDTIME 08/25 completed Not Available Not Available Not Available ergocalcife rol (vitamin D2) 1,250 mcg (50,000 unit) capsule TAKE 1 CAPSULE BY MOUTH EVERY WEEK 09/21 completed Not Available Not Available Not Available methylpredn isolone 4 mg tablets in a dose pack 08/13 completed Not Available Not Available Not Available albuterol sulfate HFA 90 mcg/actuati on aerosol inhaler INHALE 2 PUFFS BY MOUTH EVERY 4 TO 6 HOURS NEEDED FOR COPD active Not Available Not Available No t Available fluticasone propionate 50 mcg/actuati on nasal spray,suspe nsion 01/30 completed Not Available Not Available Not Available amoxicillin 875 mg-potassiu m clavulanate 125 mg tablet 08/13 completed Not Available Not Available Not Available Flovent HFA 110 mcg/actuati on aerosol inhaler Inhale 2 puffs twice a day by inhalatio n route. 10/03 completed Not Available Not Available Not Available cholecalcif елена (vitamin D3) 250 mcg (10,000 unit) capsule Take 1 capsule every day by oral route with meals for 39 days. 2022 active OTC Not Available Not Available Not Avai lable Atrovent HFA 17 mcg/actuati on aerosol inhaler Inhale 2 puff(s) 4 times a day by inhalatio n route as directed for 30 days. 2023 active Not Available Not Available Not Avai lable Aerospan 80 mcg/actuati on HFA aerosol inhaler INHALE 2 PUFFS BY MOUTH TWICE DAILY 09/30 completed Not Available Not Available Not Available Virtussin AC 10 mg-100 mg/5 mL oral liquid 08/13 completed Not Available Not Available Not Available Asmanex HFA 100 mcg/actuati on aerosol inhaler INHALE 2 PUFFS BY MOUTH TWICE DAILY active Not Available Not Available No t Available Incruse Ellipta 62.5 mcg/actuati on powder for inhalation INHALE 1 PUFF BY MOUTH EVERY DAY DIRECTED FOR COPD active Not Available Not Available No t Available Qvar RediHaler 40 mcg/actuati on HFA breath activated aerosol INHALE 2 PUFFS BY MOUTH TWICE DAILY active Not Available Not Available No t Available Vitals Date Recorded Body height Body mass index (BMI) Body weight Oxygen saturation Oxygen saturation in Arterial blood by Pulse oximetry Heart rate Respiratory rate Systolic And Diastolic Provider Name and Address Organization Details Last Updated DateTime 4 151.13 cm 26.8 kg/m2 42423.9 7 g 99 % 99 % 76 /min 16 /min 129/80 mm[Hg] Asher Stokes [place] [facility] 4 09:54:06 Date Recorded Oxygen saturation Oxygen saturation in Arterial blood by Pulse oximetry Heart rate Respiratory rate Body height Body mass index (BMI) Body weight Systolic And Diastolic Provider Name and Address Organization Details Last Updated DateTime 2 95 % 95 % 85 /min 20 /min 151.13 cm 27.5 kg/m2 51712.1 5 g 126/72 mm[Hg] Dorothy Israel MA [place] [facility] 2 11:07:37 Date Recorded Body height Body mass index (BMI) Body weight Oxygen saturation Oxygen saturation in Arterial blood by Pulse oximetry Heart rate Respiratory rate Body temperature Systolic And Diastolic Provider Name and Address Organization Details Last Updated DateTime 3 151.13 cm 25.1 kg/m2 08686.0 4 g 95 % 95 % 90 /min 16 /min 98.3 [degF] 122/70 mm[Hg] Glenna Aguilar [place] [facility] 3 13:53:32 Date Recorded Systolic And Diastolic Provider Name and Address Organization Details Last Updated DateTime 11/21/2024 136/80 mm[Hg] PARMJIT LEE Attn: [address] [place], [address], [facility] 11/21/2024 11:06:11 Date Recorded Body height Body mass index (BMI) Body weight Oxygen saturation Oxygen saturation in Arterial blood by Pulse oximetry Heart rate Respiratory rate Systolic And Diastolic Provider Name and Address Organization Details Last Updated DateTime 5 181.61 cm 19.8 kg/m2 79806.3 g 98 % 98 % 97 /min 16 /min 147/77 mm[Hg] Lizbeth Garrido MA [place] [facility] 5 10:50:07 Date Recorded Body height Body mass index (BMI) Provider Name and Address Organization Details Last Updated DateTime 12/04/2024 151.13 cm 28.8 kg/m2 PARMJIT LEE Attn: Accounting[address] [place], [address], [place] [facility] 12/04/2024 11:31:27 Date Recorded Body weight Oxygen saturation Oxygen saturation in Arterial blood by Pulse oximetry Heart rate Systolic And Diastolic Provider Name and Address Organization Details Last Updated DateTime 5 74331.5 9 g 99 % 99 % 76 /min 123/79 mm[Hg] Lizbeth Garrido MA [facility] 5 11:23:34 Social History Question Answer Notes LastModified by Organizat ion Details LastModified Time Tobacco Smoking Status Former Smoker quit 04/2017 Ada Daniel MA null, [place] 08/25/2018 14:00:47 Do You Have An Advance Directive? No Information not available 09/16/2021 Are You Blind Or Do You Have Difficulty Seeing? No Information not available 09/16/2021 What Is Your Level Of Caffeine Consumption? Moderate Information not available 05/24/2019 How Much Tobacco Do You Chew? None Information not available 01/09/2020 In The 14 Days Before Symptom Onset, Have You Had Close Contact With A Laboratory-confir med COVID-19 While That Case Was Ill? No Information not available 09/16/2021 In The 14 Days Before Symptom Onset, Have You Had Close Contact With A Person Who Is Under Investigation For COVID-19 While That Person Was Ill? No Information not available 09/16/2021 Have You Been To An Area Known To Be High Risk For COVID-19? No Information not available 09/16/2021 Are You Deaf Or Do You Have Serious Difficulty Hearing? No Information not available 09/16/2021 What Type Of Diet Are You Following? REGULAR Information not available 05/24/2019 Which Illicit Or Recreational Drugs Have You Used? None Information not available 01/09/2020 Are There Any Guns Present In Your Home? No Information not available 09/16/2021 Hard Of Hearing Or Deaf In One Or Both Ears? No Information not available 05/24/2019 Legally Blind In One Or Both Eyes? No Information no t available 05/24/2019 Live Alone Or With Others? With Others Information not available 05/24/2019 What Was The Date Of Your Most Recent Tobacco Screening? 12/04/2024 [email or web address] Information not available 12/04/2024 How Many Children Do You Have? 2 Information not available 05/24/2019 What Is Your Relationship Status? Single Information not available 09/16/2021 Do You Use Your Seat Belt Or Car Seat Routinely? Yes Information not available 09/16/2021 Smoke Alarm In Home Yes Information not available 05/24/2019 Do You Have Smoke And Carbon Monoxide Detectors In Your Home? Yes Information not available 09/16/2021 At What Age Did You Start Smoking Tobacco? 30 Information not available 01/09/2020 Are You Passively Exposed To Smoke? No Information no t available 05/24/2019 How Much Tobacco Do You Smoke? 1 PPW Information not available 08/13/2016 General Stress Level Low Information not available 05/24/2019 Do You Use Sunscreen Routinely? Yes Information not available 09/16/2021 On What Date Was Tobacco Cessation Counseling Provided? 08/16/2023 Information not available 08/16/2023 How Many Years Have You Smoked Tobacco? 6 Information not available 08/13/2016 Sex: Female Functional Status Question Answer Note LastModified by Organizat ion Details LastModified Time Do you use any illicit or recreational drugs? No [email or web address] Information not available 03/19/2021 Do you or have you ever used any other forms of tobacco or nicotine? No Information not available 08/16/2023 What is your level of alcohol consumption? None Information not available 05/24/2019 Do you or have you ever used smokeless tobacco? Never used smokeless tobacco Information not available 05/24/2019 Are you currently employed? Yes Information not available 05/24/2019 Are you able to care for yourself independently? 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 Never used electronic cigarettes Information not available 05/24/2019 What is your exercise level? Moderate Information not available 09/16/2021 Mental Status Question Answer Note LastModified by Organization D etails LastModified Time Do you feel stressed (tense, restless, nervous, or anxious, or unable to sleep at night)? [id number] Information not available 09/16/2021 Family History Nothing Reported. Medical History Condition Response Coronary Artery Disease N Other N High Blood Pressure N Atrial Fibrillation N Thyroid Problems N Kidney or Bladder Problems N GI Problems N Depression N COPD Y Blood Clots N Skin Problems N Eating Disorder N Anemia N Heart Attack ([place]) N Anxiety Disorder N Diabetes N Muscle, Joint, or Bone Problems N Seizures/Epilepsy N Acid Reflux (GERD) N Cancer N Stroke N Asthma N Allergies N ADHD N Substance Abuse N High Cholesterol N Hepatitis N Liver Disease N Schizophrenia N Headaches N Heart Failure N Osteoporosis N Gynecological History Statement/Question Response Date of Last Mammogram 10/26/2018 Flow Light Date of LMP 11/02/2022 On BCP's at Conception? N Duration of Flow (days) 3 Age at Menarche 11 Current Control Method Menopause Age at First Child 24 If Post Menopausal, Age at Menopause 50 Frequency of Cycle (Q days) 28 Menses Monthly N Date of Last Pap Smear 08/26/2017 LMP Approximate Obstetrics History GPAL:G 2 P 2 0 0 2 Type Value Multiple Births 0 Full Term 2 Induced 0 Spontaneous 0 Premature 0 Living 2 Ectopics 0 Total 2 Immunizations Vaccine Type Date Status Note Provider Nam e and Address Organization Details Recorded Time Tdap 08/13/2016 completed Not Available [facility] 04/14/2019 02:43:10 Hep B, adult 10/10/2023 completed Not Available [facility] 12/04/2024 11:12:51 Hep B, adult 11/21/2023 completed Not Available [facility] 12/04/2024 11:12:51 Hep B, adult 04/20/2024 completed Not Available [facility] 12/04/2024 11:12:51 Past Encounters Encounter ID Performer Location Encounter Start Date Encounter Closed Date Diagnosis/Indication Diagnosis SNOMED-CT Code Diagnosis ICD10 Code Diagnosis IMO Codes Diagnosis Note [id number] LYSSA Cain NP [facility] [address] [place] [address] 08/13/2016 09:48:32 08/13/2016 16:18:22 Asthma 384043308 J45.909 Obtain labs. Start singulair and Qvar as directed. Proair inhaler prn. F/u 1 month. Active or passive immunization 929823999 Z23 Tdap administer ed Hyperlipid emia screening 891859368 Z13.220 Obtain fasting lab [id number] LYSSA Cain NP [facility] [address] [place] [address] 09/17/2016 14:01:38 09/17/2016 15:00:11 Gynecologic examination 49611546 Z01.419 Pap and nuswab obtained. Will call with results. [id number] LYSSA Cain NP [facility] [address] [place] [address] 09/29/2017 12:01:43 10/03/2017 17:48:16 Asthma 843863363 J45.909 -Continue aerospan -Ventolin prn -Singulair daily -F/u 3 months Menopausal syndrome 1237 31658 N95.9 -Start citalopram -F/u 1 month [id number] LYSSA Cain NP [facility] [address] [place] [address] 12/30/2017 11:35:55 12/30/2017 12:16:12 Dyspnea on exertion 52586515 R06.09 -Wheezing today, Duoneb given-QVAR not helping, using ventolin daily-D/c QVAR-Start Atrovent-A sthma vs. COPD-Obtai n PFT-Ventol in prn-F/u 1 month Menopausal syndrome 1237 42474 N95.9 -Adverse effects with citalopram -Start sertraline -F/u 1 month [id number] LYSSA Cain NP [facility] [address] [place] [address] 01/30/2018 11:32:08 01/30/2018 12:32:11 Dyspnea on exertion 28131776 R06.09 -Atrovent helping a lot, continue use-Review ed PFT results-Ve ntolin prn-F/u 6 month or prn Menopausal syndrome 1237 51486 N95.9 -Continue 25 mg sertraline -F/u 6 months or prn [id number] Mercedez Vargas MD [facility] [address] [place] [address] 08/25/2018 13:50:31 08/28/2018 08:41:49 Chronic obstructive pulmonary disease 50867926 J44.9 Mild inter mittent asthma 494750940 J45.20 Moderate r ecurrent major depression 86301908 F33.1 father recently [id number] Mercedez Vargas MD [facility] [address] [place] [address] 09/04/2018 16:45:14 09/15/2018 08:34:30 Acute bilateral otitis media 122181846 H66.93 Acute pharyngitis 283749 003 J02.9 [id number] Mercedez Vargas MD [facility] [address] [place] [address] 05/24/2019 14:00:25 05/28/2019 08:57:42 Asthma 786293533 J45.909 Adult heal th examination 277945262 Z00.00 patient does not appear to be significan tly depressed. Depression screening 171 240836 Z13.31 [id number] Mercedez Vargas MD [facility] [address] [place] [address] 01/09/2020 11:08:28 01/14/2020 09:17:37 Screening mammography 46520104 Z12.31 Asthma 751965735 J45.90 9 Screening for malignant neoplasm of colon 883903076 Z12.11 [id number] Mercedez Vargas MD [facility] [address] [place] [address] 09/15/2020 11:05:02 09/24/2020 10:18:48 Screening mammography 77887132 Z12.31 Mild inter mittent asthma 734391250 J45.20 patient has had a recent refill on her atrovent. Depression screening 171 303995 Z13.31 patient does not appear to be significan tly depressed. [id number] Gael dickinson MD [facility] [address] [place] [address] 03/19/2021 15:56:04 03/24/2021 09:51:55 Cough 93997783 R05.9 phone visith/o COPDcough x6 daysCOVID negativec/ w inhalersno concerning sxtrial honey/lemo n tea, humidifier , steam from hot shower, increase fluid intakealbu terol PRNgo to the ED with any new or worsening sx [id number] Gael dickinson MD [facility] [address] [place] [address] 08/19/2021 09:38:59 08/21/2021 03:49:00 [id number] Gael dickinson MD [facility] [address] [place] [address] 09/16/2021 10:49:49 09/17/2021 12:50:29 Screening for malignant neoplasm of breast 220543923 Z12.39 h/o breast cancer 2010, chemo, R mastectomy has order from [facility] Screening for malignant neoplasm of cervix 743543885 Z12.4 last pap 2018tubal ligation 2005no h/o abnormalsP Ex- nl, sample taken for pap Chronic ob structive pulmonary disease 49813892 J44.9 PFTS 2018- severe obstructiv e defectcont rolled on atrovent Screening for malignant neoplasm of colon 168787782 Z12.11 had colonoscop y 2 yrs ago in [place] , 5 yr f/u, due in 3 yrs Depression screening 171 237426 Z13.31 PHQ 0 [id number] Gael dickinson MD [facility] [address] [place] [address] 09/21/2022 13:41:09 09/21/2022 14:20:43 Chronic obstructive pulmonary disease 64752851 J44.9 PFTS 2018- severe obstructiv e defectquit smoking in 2018no cough, SOB at rest or with exertion, or sputumcont rolled on atrovent and albuterol PRNdiscuss ed prevnar 20 vaccine, pt declined at this time Screening for malignant neoplasm of breast 809697592 Z12.39 h/o breast cancer 2010, chemo, R mastectomy has order from [facility] scheduled for 11/2022had US L breast 01/2022, US normal Depression screening 171 398248 Z13.31 PHQ 0 Screening for malignant neoplasm of colon 638307422 Z12.11 had colonoscop y 3 yrs ago in [place] , 5 yr f/u, due in 2 yrs Overweight 326605913 E66 .3 discussed increasing exercise and healthier food options, high protein, low fat dietyearly labs Vitamin D deficiency 347 46418 E55.9 takes 10,000 units daily- juan Vit D level [id number] Gael dickinson MD [facility] [address] [place] [address] 08/16/2023 09:42:25 08/16/2023 10:44:47 Chronic obstructive pulmonary disease 78858095 J44.9 08/16/23:co pd - during winter months coughing got worse. Denies getting winded with walking. Feels like atrovent is working pretty well. Has to use albuterol with seasonal allergies and winter. During summer hardly at all. Used 3 albuterol inhalers last winter. Endorses 1 episode of bronchitis .quit smoking in 2018- Ordered PFT since last was 6 yrs agono cough, SOB at rest or with exertion, or sputumcont rolled on atrovent and albuterol PRNdiscuss ed prevnar 20 vaccine, pt declined at this time 09/21/22:PF TS 2018- severe obstructiv e defectquit smoking in 2018no cough, SOB at rest or with exertion, or sputumcont rolled on atrovent and albuterol PRNdiscuss ed prevnar 20 vaccine, pt declined at this time Screening for malignant neoplasm of breast 356412991 Z12.39 08/16/23:ma mmogram - referral needed; did not get mammogram last year- Referral placed 08/2022:h/o breast cancer 2010, chemo, R mastectomy has order from [facility] scheduled for 11/2022had US L breast 01/2022, US normal Screening for malignant neoplasm of cervix 975949136 Z12.4 due for repeat in 2024 Screening for malignant neoplasm of colon 152315120 Z12.11 08/2022- had colonoscop y 2020 in [place] , 5 yr f/udue for colonoscop y Overweight 824666931 E66 .3 discussed increasing exercise and healthier food options, high protein, low fat dietyearly labsdiet - eating vegs, salads, baked chicken and fruits during the summer. 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 and a salad for dinnner Vitamin D deficiency 347 88990 E55.9 takes 10,000 units daily- juan Vit D level Depression screening 171 951860 Z13.31 PHQ 0 08/16/23 [id number] Ignacio Mazariegos MD [facility] [address] [place] [address] 11/21/2024 10:35:09 11/21/2024 11:11:44 History of malignant neoplasm of breast 321715351 Z12.39 11/21/24: did not complete last year 08/16/23:ma mmogram - referral needed; did not get mammogram last year- Referral placed 08/2022:h/o breast cancer 2010, chemo, R mastectomy has order from [facility] scheduled for 11/2022had US L breast 01/2022, US normal Chronic ob structive pulmonary disease 76684502 J44.9 11/21/24: states that she completed PFT last year at [facility], will requesttri al incruse instead of atrovent 08/16/23:co pd - during winter months coughing got worse. Denies getting winded with walking. Feels like atrovent is working pretty well. Has to use albuterol with seasonal allergies and winter. During summer hardly at all. Used 3 albuterol inhalers last winter. Endorses 1 episode of bronchitis .quit smoking in 2018- Ordered PFT since last was 6 yrs agono cough, SOB at rest or with exertion, or sputumcont rolled on atrovent and albuterol PRNdiscuss ed prevnar 20 vaccine, pt declined at this time 09/21/22:PF TS 2018- severe obstructiv e defectquit smoking in 2018no cough, SOB at rest or with exertion, or sputumcont rolled on atrovent and albuterol PRNdiscuss ed prevnar 20 vaccine, pt declined at this time Depression screening 171 387195 Z13.31 2572945 PHQ 0 Long-term current use of drug therapy 047212830 Z79.388 2942186 routine labs Screening for malignant neoplasm of cervix 433165676 Z12.4 due for repeat this year Screening for malignant neoplasm of colon 528777041 Z12.11 re-sent referral 08/2022- had colonoscop y 2019 in [place] , 5 yr f/udue for colonoscop y Postmenopa usal bleeding 48994344 N95.0 62732 no period for 2 yrslight cycle 09/28/24 for 3 days, panty liner, tampon, pink to red coloredatt ributes to increased job stresssche duled pap in 2 wks Pilar cyst of scalp 4011 20208 L72.11 60348940 2 [id number] yrs [id number] Ignacio Mazariegos MD [facility] [address] [place] [address] 12/04/2024 11:12:21 12/04/2024 11:46:59 Cancer cervix screening status 145748362 Z12.4 175098 due for pap, rec'd UTD due to post menopausal spotting for 3 daysPEx- sample taken for pap, cervical os scarredsen t nuswab Postmenopa usal bleeding 25681071 N95.0 63423 no period for 2 yrslight cycle 09/28/24 for 3 days, panty liner, tampon, pink to red coloredatt ributes to increased job stressorde red US pelvis + TV Screening mammography 24 344814 Z12.31 [id number] 12/04/24: encouraged to schedule mammogram 08/16/23:ma mmogram - referral needed; did not get mammogram last year- Referral placed 08/2022:h/o breast cancer 2010, chemo, R mastectomy has order from [facility] scheduled for 11/2022had US L breast 01/2022, US normal Depression screening 171 039432 Z13.31 9667000 PHQ 0 Health Concerns Section Related Observation LastModified by Organization Detai ls LastModified Time None Recorded Concern Status LastModified by Organization Details LastModified Time None Recorded Advance Directives Directive N: Payers Insurance Date Sequence Insurance Name Policy Number Policy Pérez Covered Member ID Pérez Member ID Guarantor Name 12/01/2024 1 [facility] ON OR AFTER 09/25/20 (MEDICAID REPLACEMENT - HMO) Beverley Michele [id number] Beverley Michele 11/21/2024 1 [facility] PRIOR TO 09/25/2020 (MEDICAID REPLACEMENT - HMO) Beverley Michele [id number] [facility] Elizabeth Michele Notes Date Note Type Note Provider Name and Address Organization Details Recorded Time 09/16/2021 text/html ROS as noted in the HPI Pt presents for WWE. , C section. Last pap 2017, no h/o abnormals. 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 Tubal ligation 2004. Denies hematuria, dysuria, odor, irritation, urinary frequency/urgency , or discharge. No h/o STDs. Sexually active with partner. Last mammogram 2020. H/o breast cancer in 2009, had chemo and R mastectomy. Pt's cousin on her father's side had cervical cancer. No FH of ovarian cancer. PARMJIT LEE Attn: Accounting,[address] [place], [address], [facility] 09/16/2021 11:33:30 09/21/2022 text/html ROS as noted in the HPI Pt presents for annual exam and med refills. No concerns today. She has started going to the gym and walking [place] to help her lose weight. Denies fever, chills, chest pain, SOB, n/v/d, abd pain, dizziness, weakness, or headaches. PARMJIT LEE Attn: Accounting,[address] [place], [address], [facility] 09/21/2022 14:29:28 08/16/2023 text/html ROS as noted in the HPI 52yo F presents for annual follow up. Hx of COPD, breast cancer, obesity, low Vit d. No concerns or complaints today. States that her COPD flares up in the winter and had to use up to 3 albuterol inhalers. Pt did not complete mammogram last year. Denies fever, chills, chest pain, SOB, n/v/d, abd pain, dizziness, weakness, or headaches. PARMJIT LEE Attn: Accounting,[address] [facility], [place], [address], [facility] 08/17/2023 12:04:05 11/21/2024 text/html ROS as noted in the HPI Patient presents for med refills and routine labs. Last visit was 07/2023. States that she has been out of her Atrovent inhaler and has been using her son's albuterol for the past 10 months. Per patient, she completed PFT at [facility] last year. Reports that she has not had her menstrual cycle for 2 years, but on September 28 she had a light period for 3 days. Bleeding was pink to red, used a panty liner and a tampon. Admits to increased job stress. PARMJIT LEE Attn: Accounting,[address] [facility], [place], [address], [facility] 11/22/2024 11:11:00 12/04/2024 text/html ROS as noted in the HPI Pt presents for WWE and post menopausal bleeding. , C sections. Last pap 2021, no h/o abnormals. LMP 09/28/24, spotting for 3 days. She previously did not have cycle for 2 yrs. Denies hematuria, dysuria, odor, irritation, urinary frequency/urgency , or discharge. No h/o STDs. Sexually active with one partner. Last mammogram 3 yrs ago. History of breast cancer 2010, R mastectomy. PARMJIT LEE Attn: Accounting,[address] [facility], [place], [address], [facility] 12/04/2024 11:59:40 OBGyn Episode Ob Episode Information Episode Created Date Number of Fetuses Patient Bloodtype Patient rh Status Prepregnancy Weight lbs Domestic Partner Domestic Partner Phone Father Name Tree Marker Status 08/14/19 17 1 CLOSED Fetus Data First Name Last Name Admitted to NICU Weight (g) Sex Living Outcome Pediatric Complications Fetus ID Race Codes Race Delivery Type 3061.74 6 M Full Term [id number] Only Shady Calculation Initial Shady Date Initial Exam Date Initial Exam Provider Initial Ultrasound Date Last Menstrual Period Date Ultra Sound Weeks Gestation 0 Eighteen To Twenty Week Shady Update Ultra Sound Date Fundal Height At Umbil Quickening Date Ultra Sound Latest Weeks Gestation Final Shady Confirmed By Final Shady Confirmed Date Final Shady Date Ultra Sound Latest Days Gestation 0 0 Menstrual History Last Menstrual Date Menses Monthly On Bcp Conception Prior Menses Frequency Hcg Plus Date Menarche Onset Age Delivery Information Delivery Date Delivery Type Labor Anesthesia Weeks Gestation Incision Type Labor Labor Length Hrs Delivered By Post Complications Tubal Sterilization Discharge Date Comments 4 [facility]- idural 40 false 13 Discharge Information Feeding Method Contraceptive Method Maternal HG B and HCT Levels Ob Episode Information Episode Created Date Number of Fetuses Patient Bloodtype Patient rh Status Prepregnancy Weight lbs Domestic Partner Domestic Partner Phone Father Name Tree Marker Status 08/14/19 17 1 CLOSED Fetus Data First Name Last Name Admitted to NICU Weight (g) Sex Living Outcome Pediatric Complications Fetus ID Race Codes Race Delivery Type 2466.17 9704 M Full Term [id number] Shady Calculation Initial Shady Date Initial Exam Date Initial Exam Provider Initial Ultrasound Date Last Menstrual Period Date Ultra Sound Weeks Gestation 0 Eighteen To Twenty Week Shady Update Ultra Sound Date Fundal Height At Umbil Quickening Date Ultra Sound Latest Weeks Gestation Final Shady Confirmed By Final Shady Confirmed Date Final Shady Date Ultra Sound Latest Days Gestation 0 0 Menstrual History Last Menstrual Date Menses Monthly On Bcp Conception Prior Menses Frequency Hcg Plus Date Menarche Onset Age Delivery Information Delivery Date Delivery Type Labor Anesthesia Weeks Gestation Incision Type Labor Labor Length Hrs Delivered By Post Complications Tubal Sterilization Discharge Date Comments 5 Local 40 false 0 Discharge Information Feeding Method Contraceptive Method Maternal HG B and HCT Levels
--- NOTE | 2025-01-24 08:54 | WPDHPUPDATE1 ---
History and Physical Update Update Date/Time: 01/24/25 08:54 History and Physical has been reviewed, including an updated exam of the patient. There are NO changes in the patient's condition. Risks, benefits, and alternatives have been discussed and questions answered. Patient agrees to proceed with procedure.
[2025-01-24 09:04] VITALS: BP 133/79; PULSE 85; RESP 18; TEMP 36.6; O2SAT 100; BMI 29.5
[2025-01-24] MEDS: ceFAZolin 2 GM in SODIUM CHLORIDE 0.9% IV 50 ML 100 ML IVPB (10:57)
--- NOTE | 2025-01-24 11:13 | WPDANESEPPF ---
Anes - Initial Pre Proc Eval Procedure: Operation Date: 01/24/25 11:00 Proposed Procedures p Hysteroscopy Dilation and Curettage - Rangel Mcneill MD Date/Time: 01/24/25 1054 Surgeon: Rangel Mcneill MD Pre Op Diagnosis: post menopausal bleeding Patient Data Age: 54 Gender: F Height: 1.51 m Weight: 67.4 kg Last Vital Signs Temp 36.6 C 01/24/25 09:04 Pulse 85 01/24/25 09:04 Resp 18 01/24/25 09:04 BP 133/79 01/24/25 09:04 Pulse Ox 100 01/24/25 09:04 O2 Del Method Room Air 01/24/25 09:04 Allergies Allergy/AdvReac Type Severity Reaction Status Date / Time Cat Dander Allergy Intermediate Difficulty Uncoded 01/22/25 12:21 Breathing Home Medications ?Medication ?Instructions ?Recorded ?Confirmed ?Type umeclidinium 62.5 mcg/actuation 1 inh inhalation DAILY 01/21/25 01/22/25 History blister powder for inhalation (Incruse Ellipta) albuterol sulfate 90 mcg/actuation 2 inh inhalation Q4-6H PRN asthma 01/22/25 01/22/25 History aerosol inhaler cholecalciferol (vitamin D3) 25 1,000 unit PO DAILY 01/22/25 01/22/25 History mcg (1,000 unit) tablet (Vitamin D3) Patient hx anesthesia problems: post op nausea/vomiting Family hx anesthesia problems: none Results Review: All pre-operative results and documents have been reviewed as part of the pre-operative evaluation. [facility] Past Medical History Medical History Breast cancer (~2009) right breast COPD (chronic obstructive pulmonary disease) Surgical History Surgical History History of mastectomy (~08/2009) right breast Delivery by section x 2 Family History Family History Other H/O ovarian cancer half sister on paternal side Hypertension Grandparent Cerebrovascular accident paternal grandfather Diabetes mellitus maternal grandmother Carcinoma of colon grandmother maternal Mother Hypertension Father Hypertension Lymphatic leukemia Other Family history of cardiovascular disease Social History Social History Years smoked: 10 Smoking status: Former smoker Tobacco type: cigarettes Second hand tobacco smoke exposure: No Smoking end date: 12/27/19 Alcohol intake: never Substance use: never Substance use type: does not use Do You Feel Safe in your Home?: Yes Lack of Transportation: No Lack of Food: Never True Current Housing: I Have Housing Concerned About Future Housing: No Difficulty Paying Gas/Electric Bills: No Difficulty Paying for Meds: No Currently Unemployed: No Education: High School Diploma/GED Difficulty w/ Childcare or Family Care: No Living arrangements: alone Additional living arrangements comments: 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 Gender identity (if verbalized by the patient): Female Sexual Orientation (if Verbalized by the Patient): Straight or Heterosexual Spiritual care concerns: No Anes - Eval Final PreProcedure Day of Procedure 01/24/25 11:13 Patient weight: overweight Heart: regular rate and rhythm Lungs: clear to auscultation and normal air movement Airway: Mallampati scale class II Neurological: alert and oriented Last oral intake: >/= 8 hours ASA classification: III Emergent: no Anesthetic plan: proceed Anesthesia type and monitoring: general GIVS and standard monitoring Results Review: All pre-operative results and documents have been reviewed as part of the pre-operative evaluation. Informed Consent: The patient's anesthetic plan and its attendant risks and benefits were discussed with the patient/family/POA. Questions were solicited and answers provided to the satisfaction of the patient/family/POA.
--- NOTE | 2025-01-24 11:16 | S_PTH ---
PATIENT: Beverley Michele LOC: [facility] U#:[id number] AGE/SX: 54/F ROOM: RE01/24/[address]: Rangel Mcneill MD : 1970 BED: DIS: 01/24/2025 SPEC #: [id number] RECD: 01/24/25 13:09 STATUS: MARIAN REQ #: [id number] LETICIA: 01/24/25 11:[address]: Rangel Mcneill DEPT: [facility] Surgical RECD BY: Sheila Evans ENTERED: 01/24/25 13:09 SP TYPE: Surgical OTHR DR: Sylvia Torre, PA Tissues: A - Endometrial Curettings Procedures: Hematoxylin and Eosin Stain Gross and Microscopic Level 4
--- NOTE | 2025-01-24 11:21 | W.PM.PROC2 ---
Procedure Note - Detailed Date of Procedure 01/24/25 Pre-op Diagnosis post menopausal bleeding Post-op Diagnosis Same Procedure Performed hysteroscopy with uterine curretings Surgeon Rangel Mcneill MD Anesthesia MAC Findings Slightly thickened endometrium Description of Procedure Patient prepped and draped usual manner for this procedure. Cervix dilated to allow the hysteroscope to be placed. Once this was done the entirety the cavity was slightly thickened though no polyps or fibroids or hypervascularity noted. Curettings/shavings were obtained without difficulty. Patient was then sent to the recovery room in stable condition. Estimated Blood Loss 10 Drains No Packing No Pathology Yes Complications No immediate complications Condition Stable Disposition PACU [facility] Billing Surgery - Charge Forward: Surgery Billing
[2025-01-24 11:24] VITALS: BP 120/72; PULSE 89; RESP 16; O2SAT 100
[2025-01-24] MEDS: LACTATED RINGERS 1,000 ML 30 ML IV CONT (11:24)
[2025-01-24 11:50] VITALS: BP 160/72; PULSE 86; RESP 16
== END 2025-01-24 12:20 | disposition home or self-care (01) ==
PROVIDERS: PCP Physician Assistant; Visit Provider Obstetrics & Gynecology
PROC: 0U5B8ZZ Destruction of Endometrium, Via Natural or Artificial Opening Endoscopic (ICD-10-PCS; CPT 58563; principal; 2025-01-24 11:00)
DX: R93.89 Abnormal findings on diagnostic imaging of other specified body structures (principal); J44.9 Chronic obstructive pulmonary disease, unspecified; Z79.51 Long term (current) use of inhaled steroids; Z98.890 Other specified postprocedural states; Z90.11 Acquired absence of right breast and nipple; Z87.891 Personal history of nicotine dependence; Z85.3 Personal history of malignant neoplasm of breast; Z80.41 Family history of malignant neoplasm of ovary; Z80.0 Family history of malignant neoplasm of digestive organs; Z80.6 Family history of leukemia; Z82.49 Family history of ischemic heart disease and other diseases of the circulatory system
CPT/HCPCS: 58558; 88305; J0690; J2003; J2250; J2405; J2704; J3010; J7120

== ENCOUNTER 2025-03-22 20:39 | Observation (INO) | payer SELFPAY ==
[2025-03-22] VITALS (8 sets, daily range): BP systolic 112–134; BP diastolic 46–80; PULSE 80–90; RESP 16–22; TEMP 36.3; O2SAT 95–99
--- NOTE | ~2025-03-22 | US_ITS ---
EXAMINATION: US right upper quadrant DATE: 03/23/2025 08:45 INDICATION: Right upper quadrant pain. TECHNIQUE: Multiple grayscale and Doppler ultrasound images of the abdomen were obtained. COMPARISON: CT abdomen and pelvis dated 01/01/2025. FINDINGS: Multiple mobile gallstone in the gallbladder. There is no edema gallbladder wall. No localized tenderness over the gallbladder. Mild hepatomegaly 19 cm in length. Portal vein and hepatic veins are patent. Common hepatic duct measures 6 mm in diameter. Right kidney is mildly atrophic in size. No free fluid in the upper right abdomen. Were visualization of pancreas aorta and retroperitoneum. IMPRESSION: 1. Mobile gallstone in the gallbladder. No ultrasound evidence of acute cholecystitis. Borderline dimensions of common hepatic duct. 2. Mild hepatomegaly. Portal vein and hepatic veins are patent. No free fluid. Reviewed, dictated and finalized at location T. L TOUCH UP PAINTER IMPRESSION: 1. Mobile gallstone in the gallbladder. No ultrasound evidence of acute cholecy stitis. Borderline dimensions of common hepatic duct. 2. Mild hepatomegaly. Portal vein and hepatic veins are patent. No free fluid.
--- NOTE | ~2025-03-22 | CT_ITS ---
EXAMINATION: CT abdomen pelvis w con DATE: 03/22/2025 23:07 INDICATION: Right upper quadrant abdominal pain TECHNIQUE: Computed tomography (CT) of the abdomen and pelvis was performed with 100 mL Omnipaque-350 intravenous contrast. Automated exposure control and iterative reconstruction technique were employed. The dose-length product was 324.71 mGy-cm. COMPARISON: CT dated 01/01/2025 FINDINGS: Lung bases are clear. Heart size is normal. No pericardial or pleural effusion. Postoperative change of prior right mastectomy with overlying breast prosthesis. Small sliding-type hiatal hernia. There is some fluid in the distal esophagus which could be related to reflux. Decreased in size and development of rim calcification since 2015 and 8 previously 12 mm, currently 9 mm cyst at the dome of the liver. There is nonspecific edematous wall thickening of the nondilated gallbladder. No intra or extra hepatic biliary ductal dilation. Spleen, pancreas, bilateral adrenal glands and kidneys are normal. Small amount of stool in the proximal colon with decompression of the majority of the more distal colo n. There are multiple fluid-filled but not frankly dilated loops of small bowel without discrete transition point which could be due to enteritis or ileus. Normal appendix. Bladder, anteverted uterus and bilateral adnexa are unremarkable. No free intraperitoneal gas or fluid. No pathologically enlarged abdominal or pelvic lymphadenopathy. Moderate lumbosacral and mild lumbar and lower thoracic spondylosis. IMPRESSION: 1. There is fluid filling the small bowel without yobani dilation or transition point to suggest obstruction in this could be due to enteritis or ileus. 2. Small amount of pericholecystic fluid versus edematous wall thickening of the partially decompressed gallbladder without significant stranding in the surrounding fat. The absence of appreciable inflammatory stranding or gallbladder dilation would argue against acute cholecystitis. Differential would include chronic cholecystitis, hepatitis or other liver disease, congestive heart failure or other cause of generalized edema forming states. Correlate clinically and further Montiel sign. If there is clinical concern for acute cholecystitis could consider either ultrasound or HIDA scan for further javon luation. Reviewed, dictated and finalized at location A. NING SOLUTIONS SPECIALIST IMPRESSION: 1. There is fluid filling the small bowel without yobani dilation or transition point to suggest obstruction in this could be due to enteritis or ileus. 2. Small amount of pericholecystic fluid versus edematous wall thickening of th e partially decompressed gallbladder without significant stranding in the surro unding fat. The absence of appreciable inflammatory stranding or gallbladder di lation would argue against acute cholecystitis. Differential would include steel rule die maker apprentice qiana cholecystitis, hepatitis or other liver disease, congestive heart failure o r other cause of generalized edema forming states. Correlate clinically and fur ther Montiel sign. If there is clinical concern for acute cholecystitis could co nsider either ultrasound or HIDA scan for further evaluation.
[2025-03-22 22:15] LABS: Hematocrit 50.8 % (37.0-47.0); Hemoglobin 17.3 g/dL (12.0-15.0); Immature Granulocyte Percent A 0.5 % (0-0.5); Lymphocytes Absolute Auto 1.75 K/mm3 (0.9-3.2); Mean Corpuscular HGB Conc 34.1 g/dl (32-36); Mean Corpuscular Hemoglobin 31.7 pg (26-34); Mean Corpuscular Volume 93.0 fl (80-100); Nucleated Red Blood Cells Absolute Auto 0.000 K/mm3 (0.0-0.012); Nucleated Red Blood Cells Perc 0.0 % (0.0-0.2); Platelet Count Result 340 k/mm3 (150-375); Red Blood Count 5.46 M/mm3 (4.2-5.4); White Blood Count 23.1 K/mm3 (4.5-10.0)
[2025-03-22 22:18] LABS: Add Urine Microscopic? YES; Appearance Urine Clear (Clear); Glucose Urine UA Negative (Negative); Leukocyte Esterase Ur Negative LEU/UL (Negative); Nitrate Urine Negative (Negative); Non Pathogenic Casts 0-2; Specific Grav Ur 1.031 (1.001-1.035)
[2025-03-22 22:19] LABS: BEDSIDEPREGUCG Negative (Negative)
[2025-03-22 22:27] LABS: Alanine Aminotransferase 46 U/L (6-35); Albumin Level 5.3 g/dL (3.5-5.1); Alkaline Phosphatase 96 U/L (38-126); Anion Gap 12 mmol/L (4-12); Aspartate Amino Transferase 42 U/L (14-36); Bilirubin,Total 0.5 mg/dL (0.2-1.3); Blood Urea Nitrogen 21 mg/dL (7-17); Calcium 9.5 mg/dL (8.4-10.2); Carbon Dioxide 26 mmol/L (22-30); Chloride 102 mmol/L (98-107); Estimated Glomerular Filt Rate 56; Glucose 129 mg/dL (65-110); Lipase 103 U/L (23-300); Potassium 4.0 mmol/L (3.4-5.0); Sodium 140 mmol/L (137-145); Total Protein 9.1 g/dL (6.3-8.2)
[2025-03-22] MEDS: MORPHINE SULFATE (*CRX) 4 MG/ML INJ IV PUSH (23:22)
[2025-03-22] MEDS: ONDANSETRON INJ 4 MG/2 ML VIAL IV PUSH (23:22)
--- NOTE | 2025-03-22 23:52 | ED_ITS ---
HPI - Abdominal Pain General Chief Complaint: Abdominal Pain <AKI Santillan Last Filed: 03/23/25 02:22> Stated Complaint: right sided abd pain <AKI Santillan Last Filed: 03/23/25 02:22> Time Seen by Provider: 03/22/25 22:31 <AKI Santillan Last Filed: 03/23/25 02:22> Source: patient <AKI Santillan Last Filed: 03/23/25 02:22> Mode of arrival: ambulatory <AKI Santillan Last Filed: 03/23/25 02:22> Limitations: no limitations <AKI Santillan Last Filed: 03/23/25 02:22> History of Present Illness HPI narrative: This is a 54 year old female that presents to the ER for right upper quadrant abdominal pain. Ongoing intermittently over the last week. Reports associated nausea and vomiting. Worse after eating. Denies fevers. <AKI Santillan Last Filed: 03/23/25 02:22> Related Data Home Medications: Home Medications ?Medication ?Instructions ?Recorded ?Confirmed ?Last Taken ?Type umeclidinium 62.5 mcg/actuation 1 inh inhalation DAILY 01/21/25 03/23/25 03/22/25 History blister powder for inhalation (Incruse Ellipta) albuterol sulfate 90 mcg/actuation 2 inh inhalation Q4 -6H PRN asthma 01/22/25 03/23/25 03/23/25 History aerosol inhaler cholecalciferol (vitamin D3) 25 1,000 unit PO DAILY 03/23/25 Unknown History mcg (1,000 unit) tablet (Vitamin D3) <AKI Santillan Last Filed: 03/23/25 02:22> Allergies/Adverse Reactions: Allergies Allergy/AdvReac Type Severity Reaction Status Date / Time Cat Dander Allergy Intermediate Difficulty Uncoded 02/12/25 09:56 Breathing <AKI Santillan Last Filed: 03/23/25 02:22> Review of Systems 2 Review of Systems: All systems reviewed & are unremarkable except as noted in HPI and below <Analia Faria PA-C - Last Filed: 03/23/25 02:22> [facility] Past Medical History Medical History: Medical History (Updated 03/23/25 @ 07:59 by Nguyen Rodriguez APRN) Breast cancer (~2009) right breast mastectomy followed with chemotherapy last dose 01/2010 COPD (chronic obstructive pulmonary disease) <Analia Faria PA-C - Last Filed: 03/23/25 02:22> Surgical History Surgical History: Surgical History (Updated 03/23/25 @ 07:59 by Nguyen Rodriguez APRN) H/O tubal ligation History of hysteroscopy (01/24/25) Hysterscopy D&C postmenopausal bleeding History of mastectomy (~08/2009) right breast Delivery by section x 2 <Analia Faria PA-C - Last Filed: 03/23/25 02:22> Family History Family History: Family History Other H/O ovarian cancer half sister on paternal side Hypertension Grandparent Cerebrovascular accident paternal grandfather Diabetes mellitus maternal grandmother Carcinoma of colon grandmother maternal Mother Hypertension Father Hypertension Lymphatic leukemia Other Family history of cardiovascular disease <Analia Faria PA-C - Last Filed: 03/23/25 02:22> Social History Social History: Social History (Updated 03/23/25 @ 07:53 by Nguyen Rodriguez APRN) Social History: The patient resides with her significant other. She has 2 children. 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 She is a former smoker. She denies any alcohol or drug use. Code status: Full code Years smoked: 10 Smoking status: Former smoker Tobacco type: cigarettes Second hand tobacco smoke exposure: No Smoking end date: 12/27/19 Alcohol intake: never Substance use: never Substance use type: does not use Lack of Transportation: No Lack of Food: Never True Current Housing: I Do Not Have Housing Concerned About Future Housing: No Difficulty Paying Gas/Electric Bills: No Difficulty Paying for Meds: No Currently Unemployed: No Education: High School Diploma/GED Difficulty w/ Childcare or Family Care: No Living arrangements: alone Additional living arrangements comments: 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 HEAD: Normocephalic, atraumatic. EYES: EOMI. CHEST: Clear to auscultation. No respiratory distress. No wheezes rales or rhonchi HEART: Regular rate and rhythm. No murmur heard. Normal peripheral pulses. ABDOMEN: Soft, nondistended, normal active bowel sounds. Tender to palpation in the right upper quadrant, without guarding EXTREMITIES: Normal range of motion. No edema. SKIN: Warm, dry, no rash. NEURO: No focal deficits. Alert and oriented x3. 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 PA discussed patient with general surgeon and aitchbone breaker hospitalist HEATHER. Vital signs within normal limits. I was available for consultation while patient was in the department but did not personally evaluate them and was not directly involved in their care. <Ngozi Murillo MD - Last Filed: 03/23/25 09:24> Consultations Surgery: I have discussed the care of this patient with the following provider: Dr. Lundy <Analia Faria PA-C - Last Filed: 03/23/25 02:22> Vital Signs Vital signs: Vital Signs Temperature 97.4 F L 03/22/25 20:54 Pulse Rate 90 03/22/25 20:54 Respiratory Rate 20 03/22/25 20:54 Blood Pressure 134/80 03/22/25 20:54 Pulse Oximetry 97 03/22/25 20:54 Oxygen Delivery Room Air 03/22/25 20:54 Temperature 97.8 F 03/23/25 04:00 Pulse Rate 77 03/23/25 09:11 Respiratory Rate 16 03/23/25 09:11 Blood Pressure 125/60 03/23/25 04:00 Pulse Oximetry 97 03/23/25 04:00 Oxygen Delivery Room Air 03/22/25 20:54 <Analia Faria PA-C - Last Filed: 03/23/25 02:22> Vital Signs Temperature 97.4 F L 03/22/25 20:54 Pulse Rate 90 03/22/25 20:54 Respiratory Rate 20 03/22/25 20:54 Blood Pressure 134/80 03/22/25 20:54 Pulse Oximetry 97 03/22/25 20:54 Oxygen Delivery Room Air 03/22/25 20:54 Temperature 97.8 F 03/23/25 04:00 Pulse Rate 77 03/23/25 09:11 Respiratory Rate 16 03/23/25 09:11 Blood Pressure 125/60 03/23/25 04:00 Pulse Oximetry 97 03/23/25 04:00 Oxygen Delivery Room Air 03/22/25 20:54 <Ngozi Murillo MD - Last Filed: 03/23/25 09:24> [facility] Narrative Medical decision making narrative: Patient presents to the emergency department for right upper quadrant abdominal pain. She is afebrile and nontoxic appearing. CBC with leukocytosis to 23.1. Also shows hemoconcentration. Metabolic panel with mild elevation in creatinine to 1.03. Also shows mild transaminitis. Lipase is normal. Urine is not suspicious for infection. test negative. CT abdomen and pelvis showing findings of cholecystitis. Will be admitted to the hospitalist service for further management. General surgery will consult <Analia Faria PA-C - Last Filed: 03/23/25 02:22> Differential Diagnosis Differential Diagnosis: Biliary colic, cholecystitis, GERD, esophagitis, pancreatitis <Analia Faria PA-C - Last Filed: 03/23/25 02:22> Lab Data [facility] Lab Attestation statement: I personally reviewed the patient's lab results. <Analia Faria PA-C - Last Filed: 03/23/25 02:22> Result diagrams: 03/22/25 22:07 03/22/25 22:07 <AKI Santillan Last Filed: 03/23/25 02:22> Labs: Lab Results 03/22/25 03/22/25 03/22/25 Range/Units 22:07 22:08 22:17 WBC 23.1 H (4.5-10.0) K/mm3 RBC 5.46 H (4.2-5.4) M/mm3 Hgb 17.3 H (12.0-15.0) g/dL Hct 50.8 H (37.0-47.0) % MCV 93.0 (80-100) fl MCH 31.7 (26-34) pg MCHC 34.1 (32-36) g/dl RDW 12.8 (11.5-14.5) % Plt Count 340 (150-375) k/mm3 MPV 9.0 (7.4-10.4) fl Immature Gran % (Auto) 0.5 (0-0.5) % Neut % (Auto) 83.1 H (45.5-73.1) % Lymph % (Auto) 7.6 L (18.3-44.2) % [place] % (Auto) 7.9 (2.6-8.5) % Eos % (Auto) 0.6 (0-4.4) % Baso % (Auto) 0.3 (0.2-1.2) % Lymph # (Auto) 1.75 (0.9-3.2) K/mm3 [place] # (Auto) 1.8 H (0.1-0.6) K/mm3 Eos # (Auto) 0.1 (0-0.3) K/mm3 Baso # (Auto) 0.1 (0.0-0.1) K/mm3 Abs Immat Gran (auto) 0.12 H (0.00-0.031) K/mm3 Absolute Neuts (auto) 19.2 H (1.3-6.7) K/mm3 Absolute Nucleated RBC 0.000 (0.0-0.012) K/mm3 Nucleated RBC % 0.0 (0.0-0.2) % Sodium 140 (137-145) mmol/L Potassium 4.0 (3.4-5.0) mmol/L Chloride 102 (98-107) mmol/L Carbon Dioxide 26 (22-30) mmol/L Anion Gap 12 (4-12) mmol/L BUN 21 H (7-17) mg/dL Creatinine 1.03 H (0.7-1.0) mg/dL Estim Creat Clear Calc Not Reportable Estimated GFR 56 L (59 - ) Glucose 129 H (65-110) mg/dL Calcium 9.5 (8.4-10.2) mg/dL Total Bilirubin 0.5 (0.2-1.3) mg/dL AST 42 H (14-36) U/L ALT 46 H (6-35) U/L Alkaline Phosphatase 96 (38-126) U/L Troponin I < 0.012 (0.000-0.034) ng/mL Total Protein 9.1 H (6.3-8.2) g/dL Albumin 5.3 H (3.5-5.1) g/dL Lipase 103 (23-300) U/L Urine Color Yellow (Yellow) Urine Appearance Clear (Clear) Urine pH 5.0 (5.0-9.0) Ur Specific [place] 1.031 (1.001-1.035) Urine Protein Trace (Negative) mg/dL Urine Glucose (UA) Negative (Negative) mg/dL Urine Ketones Trace H (Negative) mg/dL Ur Blood (Man) Negative (Negative) Urine Nitrate Negative (Negative) Urine Bilirubin Negative (Negative) Urine Urobilinogen 0.2 (<2.0) mg/dL Leukocyte Esterase Rfl Negative (Negative) ZHANNA/UL Urine RBC 0-2 (0-2) /hpf Urine WBC 6-10 H (0-3) /hpf Ur Squamous Epith Cells Moderate (Few) /hpf Urine Bacteria Rare /hpf Urine Casts 0-2 POC Urine HCG, Qual Negative (Negative) <Analia Faria PA-C - Last Filed: 03/23/25 02:22> Lab Results 03/22/25 03/22/25 03/22/25 Range/Units 22:07 22:08 22:17 WBC 23.1 H (4.5-10.0) K/mm3 RBC 5.46 H (4.2-5.4) M/mm3 Hgb 17.3 H (12.0-15.0) g/dL Hct 50.8 H (37.0-47.0) % MCV 93.0 (80-100) fl MCH 31.7 (26-34) pg MCHC 34.1 (32-36) g/dl RDW 12.8 (11.5-14.5) % Plt Count 340 (150-375) k/mm3 MPV 9.0 (7.4-10.4) fl Immature Gran % (Auto) 0.5 (0-0.5) % Neut % (Auto) 83.1 H (45.5-73.1) % Lymph % (Auto) 7.6 L (18.3-44.2) % [place] % (Auto) 7.9 (2.6-8.5) % Eos % (Auto) 0.6 (0-4.4) % Baso % (Auto) 0.3 (0.2-1.2) % Lymph # (Auto) 1.75 (0.9-3.2) K/mm3 [place] # (Auto) 1.8 H (0.1-0.6) K/mm3 Eos # (Auto) 0.1 (0-0.3) K/mm3 Baso # (Auto) 0.1 (0.0-0.1) K/mm3 Abs Immat Gran (auto) 0.12 H (0.00-0.031) K/mm3 Absolute Neuts (auto) 19.2 H (1.3-6.7) K/mm3 Absolute Nucleated RBC 0.000 (0.0-0.012) K/mm3 Nucleated RBC % 0.0 (0.0-0.2) % Sodium 140 (137-145) mmol/L Potassium 4.0 (3.4-5.0) mmol/L Chloride 102 (98-107) mmol/L Carbon Dioxide 26 (22-30) mmol/L Anion Gap 12 (4-12) mmol/L BUN 21 H (7-17) mg/dL Creatinine 1.03 H (0.7-1.0) mg/dL Estim Creat Clear Calc Not Reportable Estimated GFR 56 L (59 - ) Glucose 129 H (65-110) mg/dL Calcium 9.5 (8.4-10.2) mg/dL Total Bilirubin 0.5 (0.2-1.3) mg/dL AST 42 H (14-36) U/L ALT 46 H (6-35) U/L Alkaline Phosphatase 96 (38-126) U/L Troponin I < 0.012 (0.000-0.034) ng/mL Total Protein 9.1 H (6.3-8.2) g/dL Albumin 5.3 H (3.5-5.1) g/dL Lipase 103 (23-300) U/L Urine Color Yellow (Yellow) Urine Appearance Clear (Clear) Urine pH 5.0 (5.0-9.0) Ur Specific [place] 1.031 (1.001-1.035) Urine Protein Trace (Negative) mg/dL Urine Glucose (UA) Negative (Negative) mg/dL Urine Ketones Trace H (Negative) mg/dL Ur Blood (Man) Negative (Negative) Urine Nitrate Negative (Negative) Urine Bilirubin Negative (Negative) Urine Urobilinogen 0.2 (<2.0) mg/dL Leukocyte Esterase Rfl Negative (Negative) ZHANNA/UL Urine RBC 0-2 (0-2) /hpf Urine WBC 6-10 H (0-3) /hpf Ur Squamous Epith Cells Moderate (Few) /hpf Urine Bacteria Rare /hpf Urine Casts 0-2 POC Urine HCG, Qual Negative (Negative) <Ngozi Murillo MD - Last Filed: 03/23/25 09:24> Imaging Data Radiologist's impression: CT abdomen and pelvis: No bowel obstruction or ileus. Nondilated small bowel with mild wall thickening suggesting a nonspecific enteritis. No evidence for appendicitis. No evidence for diverticulitis. No free fluid. Liver is enlarged and diffusely hypodense/fatty. Unchanged calcification in the right lobe at the dome. Gallbladder is partially contracted with mild wall thickening and minimal surrounding inflammation suggesting cholecystitis. No calcified gallstones. No evidence for biliary ductal dilation. Pancreas is unremarkable. Spleen is unremarkable. No obstructive uropathy. Kidneys are unremarkable. Urinary bladder is partially contracted. Uterus and ovaries are grossly unremarkable. No abdominal aortic aneurysm. Spine degenerative changes <Analia Faria PA-C - Last Filed: 03/23/25 02:22> Critical Care Time Critical Care Time Critical Care Time: No <Analia Faria PA-C - Last Filed: 03/23/25 02:22> Discharge Plan Discharge Clinical Impression: Acute cholecystitis <Analia Faria PA-C - Last Filed: 03/23/25 02:22> Patient Disposition: Still a Patient <Analia Faria PA-C - Last Filed: 03/23/25 02:22> Condition: Stable <Analia Faria PA-C - Last Filed: 03/23/25 02:22>
--- NOTE | 2025-03-22 23:52 | ECG_ITS ---
Test Date: 2025-03-23 00:15:46 Measurements Intervals [place] Rate: 71 P: 56 MN: 130 QRS: 61 QRSD: 86 T: 30 QT: 410 QTc: 448 Interpretive Statements SINUS RHYTHM WITH SINUS ARRHYTHMIA NORMAL ECG No previous ECG available for comparison Electronically Signed On 03-23-2025 09:22:19 SCHOOL AGE PROGRAM ASSOCIATE by Erwin Chou D.O.
[2025-03-23] VITALS (27 sets, daily range): BP systolic 107–140; BP diastolic 60–89; PULSE 70–89; RESP 13–20; TEMP 36.6–36.7; O2SAT 90–98; BMI 30.5
[2025-03-23 00:48] LABS: Troponin I < 0.012 ng/mL (0.000-0.034)
[2025-03-23] MEDS: PIPERACILLIN/TAZOBACTAM SOD 3.375 GM in SODIUM CHLORIDE 0.9% IV 50 ML 100 ML IVPB ×4 (01:24→20:09)
[2025-03-23] MEDS: LACTATED RINGERS 1,000 ML 999 ML IV CONT (02:43)
[2025-03-23] MEDS: SODIUM CHLORIDE 0.9% IV 1,000 ML 125 ML IV CONT ×2 (03:33→15:29)
--- NOTE | 2025-03-23 03:38 | WPCEDHO ---
ED Hand Off Checklist All vitals saved:yes IV Site documented:yes All med administrations documented:yes Triage Note Triage Note PATIENT STATES LAST WEEK 03/22/25 20:54 DEVELOPED RIGHT UPPER ABDOMEN PAIN AFTER EATING. STATES TODAY AND YESTERDAY, EXPERIENCED VOMITING WITH DIAPHORESIS AFTER EATING. DENIES URINARY SYMPTOMS OR VAGINAL DISCHARGE. DENIES SOB . Allergies Cat Dander Allergy (Intermediate, Uncoded 02/12/25 09:56) Difficulty Breathing Family History (Last Reviewed 02/12/25 @ 09:56 by Negar Arceo Gene) Other H/O ovarian cancer Hypertension Grandparent Cerebrovascular accident Diabetes mellitus Carcinoma of colon Mother Hypertension Father Hypertension Lymphatic leukemia Other Family history of cardiovascular disease Active Medications including assessments/comments Sodium Chloride (Normal Saline Iv) 1,000 mls @ 125 mls/hr IV CONT .Q8H YESICA Last Admin: 03/23/25 03:33 Dose: 125 mls/hr Documented By: KAYLYN Infusion/Titration Document 03/23/25 03:33 KAYLYN (Rec: 03/23/25 03:33 KAYLYN [id number]) Intake IV Site Peripheral Access Left Antecubital Container Volume 1,000 Waste Amount 0 Dosing Infusion Rate 125 Cumulative Dose Not Applicable Increase/Decrease Started Elapsed Time Elapsed Time ( 0m minutes) Administered/Completed Medications Discontinued Medications Piperacillin Sod/Tazobactam (Sod 3.375 gm/ Sodium Chloride) 50 mls @ 100 mls/hr IVPB ONCE STA Stop: 03/23/25 00:16 Last Infusion: 03/23/25 02:35 Dose: Infused Documented By: Admin: 03/23/25 01:24 Dose: 100 mls/hr Documented By: KAYLYN Lactated Ringer's (Lr - Lactated Ringers Iv) 1,000 mls @ 999 mls/hr IV CONT .Q1H1M STA Stop: 03/23/25 03:20 Last Infusion: 03/23/25 03:33 Dose: Infused Documented By: Admin: 03/23/25 02:43 Dose: 999 mls/hr Documented By: KAYLYN Morphine Sulfate (Morphine Sulfate (*Crx) 4 Mg/Ml Inj) 4 mg IV PUSH ONCE STA Stop: 03/22/25 22:55 Last Admin: 03/22/25 23:22 Dose: 4 mg Documented By: KAYLYN Ondansetron HCl (Ondansetron Inj 4 Mg/2 Ml Vial) 4 mg IV PUSH ONCE STA Stop: 03/22/25 22:55 Last Admin: 03/22/25 23:22 Dose: 4 mg Documented By: KAYLYN Interventions/Assessments IV / Saline Lock, Insert Start: 03/22/25 21:57 Freq: STAT Status: Active Protocol: Document 03/22/25 22:17 KAYLYN (Rec: 03/22/25 22:17 [email or web address] [id number]) IV Assessment Peripheral Access Left Antecubital IV Catheter Access Initiated IV Insertion Date 03/22/25 IV Insertion Time 22:17 Catheter Gauge 20 IV Insertion 1 Attempts IV Site Assessment WNL IV Care and WNL Maintenance PA: Gastrointestinal Assessment Start: 03/22/25 20:39 Freq: Status: Active Protocol: Document 03/22/25 22:17 KAYLYN (Rec: 03/22/25 22:18 KAYLYN [id number]) GI Assessment Gastrointestinal Nausea,Pain,Vomiting Symptoms Description Tender Pattern Normal Flatus Present Last Vital Signs Temperature 97.4 F L 03/22/25 20:54 Pulse Rate 73 03/23/25 03:32 Respiratory Rate 13 03/23/25 03:32 Pulse Oximetry 96 03/23/25 03:32 Blood Pressure 125/71 03/23/25 03:32 Blood Pressure Mean 87 03/23/25 03:32 Blood Pressure Position Sitting 03/22/25 20:54 Oxygen Delivery Room Air 03/22/25 20:54 Weight 67.4 kg 03/22/25 20:54 Last Result - Abnormals Only WBC 23.1 K/mm3 (4.5-10.0) H 03/22/25 22:07 RBC 5.46 M/mm3 (4.2-5.4) H 03/22/25 22:07 Hgb 17.3 g/dL (12.0-15.0) H 03/22/25 22:07 Hct 50.8 % (37.0-47.0) H 03/22/25 22:07 Neut % (Auto) 83.1 % (45.5-73.1) H 03/22/25 22:07 Lymph % (Auto) 7.6 % (18.3-44.2) L 03/22/25 22:07 [place] # (Auto) 1.8 K/mm3 (0.1-0.6) H 03/22/25 22:07 Abs Immat Gran (auto) 0.12 K/mm3 (0.00-0.031) H 03/22/25 22:07 Absolute Neuts (auto) 19.2 K/mm3 (1.3-6.7) H 03/22/25 22:07 BUN 21 mg/dL (7-17) H 03/22/25 22:07 Creatinine 1.03 mg/dL (0.7-1.0) H 03/22/25 22:07 Estimated GFR 56 (59-) L 03/22/25 22:07 Glucose 129 mg/dL (65-110) H 03/22/25 22:07 AST 42 U/L (14-36) H 03/22/25 22:07 ALT 46 U/L (6-35) H 03/22/25 22:07 Total Protein 9.1 g/dL (6.3-8.2) H 03/22/25 22:07 Albumin 5.3 g/dL (3.5-5.1) H 03/22/25 22:07 Urine Ketones Trace mg/dL (Negative) H 03/22/25 22:08 Urine WBC 6-10 /hpf (0-3) H 03/22/25 22:08 Most Recent Suicide Severity Rating Suicide Severity Rating NO RISK INDICATED 03/22/25 20:54
--- NOTE | 2025-03-23 04:00 | ADMGEN ---
This patient, Beverley Michele, was admitted to [facility] Surg Room 314-01. Patient/family oriented to hospital policies and general routines including ID bracelet, bed and alarms, visiting hours, pain management, procedures, bathroom and other care routines, personal items, smoking policy, room service/diet, and visiting hours. Information on how to activate the Rapid Response Team has been discussed. Patient/Family are encouraged to report perceived risks to care and to ask questions if they do not understand what they are told or what they should do.
--- NOTE | 2025-03-23 06:16 | PM.IMHP2 ---
H&P: HPI History of Present Illness Date/Time: 03/23/25 06:16 Chief Complaint: ABDOMINAL PAIN Narrative: This is a 54-year-old female patient who has a history of COPD. The patient stated that she has been having abdominal pain on and approximately 5-6 days. The patient stated that initially she thought she had a stomach bug and felt that she would recover on her own. The patient stated that every time she tried to eat something she would feel nauseated and bloated. She has had no previous history of gallstones. She has had nausea and vomiting on and off for last 5-6 days. She has had epigastric discomfort as well. She denies any fever chills or any urinary symptoms. Her epigastric discomfort became worse shortly after eating. Preliminary CT was read as gallbladder is partially contracted with mild wall thickening and minimal surrounding infiltration suggesting inflammation/cholecystitis. No calcified gallstones. No evidence biliary ductal dilatation. Pancreas is unremarkable. Her white count was noted to be 23.1. H&H of 17.3 and 40.8. Her BUN is 21 and creatinine 1.03. GFR is 56 with a previous normal value 01/01/2025. Glucose was 129. AST is 42 and ALT is 46. The patient was started fluids, Zosyn, and morphine. The ER physician did speak with Dr. Lundy concerning the patient's case. The patient is being admitted to observation status on the date of service of 03/23/2025. Review of Systems Constitutional: Constitutional: Reports as per HPI and Reports no additional constitutional complaints Eyes: Eyes: Reports as per HPI and Reports no additional eye complaints ENT: Reports system reviewed and no additional complaints, except as documented and Reports Normal hearing present Cardiovascular: Cardiovascular: Reports no additional cardiovascular complaints Respiratory: Respiratory: Reports as per HPI and Reports no additional respiratory complaints Gastrointestinal: Gastrointestinal: Reports as per HPI and Reports no additional gastrointestinal complaints Genitourinary: Genitourinary: Reports no additional female genitourinary complaints Musculoskeletal: Musculoskeletal: Reports no additional musculoskeletal complaints Integumentary/Breasts: Skin/Breast: Reports system reviewed and no additional complaints, except as docu Neurologic: Reports system reviewed and no additional complaints, except as documented and Reports Normal hearing present Psychiatric: Psychiatric: Reports no additional psychiatric complaints and Reports as per HPI Hematologic/Lymphatic: Hematologic/Lymphatic: Reports no additional hematologic/lymphatic complaints Allergic/Immunologic: Allergic/Immunologic: Reports no additional allergic/immunologic complaints [facility] Past Medical History Medical History (Updated 03/23/25 @ 07:59 by Nguyen Rodriguez APRN) Breast cancer (~2009) right breast mastectomy followed with chemotherapy last dose 01/2010 COPD (chronic obstructive pulmonary disease) Surgical History Surgical History (Updated 03/23/25 @ 07:59 by Nguyen Rodriguez APRN) H/O tubal ligation History of hysteroscopy (01/24/25) Hysterscopy D&C postmenopausal bleeding History of mastectomy (~08/2009) right breast Delivery by section x 2 Family History Family History Other H/O ovarian cancer half sister on paternal side Hypertension Grandparent Cerebrovascular accident paternal grandfather Diabetes mellitus maternal grandmother Carcinoma of colon grandmother maternal Mother Hypertension Father Hypertension Lymphatic leukemia Other Family history of cardiovascular disease Social History Social History (Updated 03/23/25 @ 07:53 by Nguyen Rodriguez APRN) Social History: The patient resides with her significant other. She has 2 children. 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 She is a former smoker. She denies any alcohol or drug use. Code status: Full code Years smoked: 10 Smoking status: Former smoker Tobacco type: cigarettes Second hand tobacco smoke exposure: No Smoking end date: 12/27/19 Alcohol intake: never Substance use: never Substance use type: does not use Lack of Transportation: No Lack of Food: Never True Current Housing: I Do Not Have Housing Concerned About Future Housing: No Difficulty Paying Gas/Electric Bills: No Difficulty Paying for Meds: No Currently Unemployed: No Education: High School Diploma/GED Difficulty w/ Childcare or Family Care: No Living arrangements: alone Additional living arrangements comments: 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 Gender identity (if verbalized by the patient): Female Sexual Orientation (if Verbalized by the Patient): Straight or Heterosexual Spiritual care concerns: No Meds Home Medications and Allergies Home Medications ?Medication ?Instructions ?Recorded ?Confirmed ?Type umeclidinium 62.5 mcg/actuation 1 inh inhalation DAILY 01/21/25 03/23/25 History blister powder for inhalation (Incruse Ellipta) albuterol sulfate 90 mcg/actuation 2 inh inhalation Q4-6H PRN asthma 01/22/25 03/23/25 History aerosol inhaler cholecalciferol (vitamin D3) 25 1,000 unit PO DAILY 01/22/25 03/23/25 History mcg (1,000 unit) tablet (Vitamin D3) Allergies Allergy/AdvReac Type Severity Reaction Status Date / Time Cat Dander Allergy Intermediate Difficulty Uncoded 02/12/25 09:56 Breathing Vital Signs Vital Signs - 24 hr 03/22/25 20:54 03/22/25 22:32 03/22/25 22:47 Temperature 97.4 F L Pulse Rate 90 81 81 Respiratory Rate 20 22 H 21 H Blood Pressure 134/80 112/46 L Pulse Oximetry 97 97 97 Oxygen Delivery Room Air 03/22/25 22:48 03/22/25 23:07 03/22/25 23:15 Temperature Pulse Rate 80 84 85 Respiratory Rate 17 19 16 Blood Pressure Pulse Oximetry 96 99 95 Oxygen Delivery 03/22/25 23:30 03/22/25 23:45 03/23/25 00:00 Temperature Pulse Rate 82 82 85 Respiratory Rate 18 17 18 Blood Pressure Pulse Oximetry 96 95 94 Oxygen Delivery 03/23/25 00:15 03/23/25 00:30 03/23/25 00:45 Temperature Pulse Rate 72 77 81 Respiratory Rate 18 15 16 Blood Pressure Pulse Oximetry 95 90 91 Oxygen Delivery 03/23/25 00:47 03/23/25 01:00 03/23/25 01:15 Temperature Pulse Rate 82 79 81 Respiratory Rate 14 16 16 Blood Pressure 126/76 Pulse Oximetry 94 94 96 Oxygen Delivery 03/23/25 01:16 03/23/25 01:35 03/23/25 01:56 Temperature Pulse Rate 79 77 86 Respiratory Rate 17 18 19 Blood Pressure 130/81 Pulse Oximetry 96 92 95 Oxygen Delivery 03/23/25 02:08 03/23/25 02:15 03/23/25 02:16 Temperature Pulse Rate 75 74 81 Respiratory Rate 16 14 18 Blood Pressure 107/61 Pulse Oximetry 92 93 96 Oxygen Delivery 03/23/25 02:30 03/23/25 02:31 03/23/25 02:45 Temperature Pulse Rate 85 78 89 Respiratory Rate 19 14 20 Blood Pressure 127/63 Pulse Oximetry 95 95 95 Oxygen Delivery 03/23/25 02:46 03/23/25 02:48 03/23/25 03:00 Temperature Pulse Rate 76 70 82 Respiratory Rate 15 14 16 Blood Pressure 131/63 Pulse Oximetry 96 95 98 Oxygen Delivery 03/23/25 03:15 03/23/25 03:16 03/23/25 03:30 Temperature Pulse Rate 75 73 82 Respiratory Rate 13 15 13 Blood Pressure 140/89 Pulse Oximetry 98 98 96 Oxygen Delivery 03/23/25 03:32 03/23/25 04:00 Temperature 97.8 F Pulse Rate 73 82 Respiratory Rate 13 20 Blood Pressure 125/71 125/60 Pulse Oximetry 96 97 Oxygen Delivery Exam Const: General: cooperative, healthy appearing, comfortable, no acute distress, well developed, awake, Physically active, average body habitus and well nourished Nutritional Appearance: average body habitus and well nourished Orientation/consciousness: oriented to person, oriented to place, oriented to time and patient oriented x3 Limitations: no limitations HENMT: Head: normal to inspection, No palpable skull fracture present and normocephalic Eyes: General: appearance normal, both eyes and all related structures Neck: Neck: normal visual inspection and full ROM Chest: Chest palpation & inspection: normal inspection of the chest Resp: Effort & Inspection: normal respiratory effort Auscultation: clear to auscultation bilaterally Cardio: Palpation: normal PMI Rate: regular rate Rhythm: regular rhythm Heart sounds: S1 normal heart sound present and S2 normal heart sound present Peripheral pulses: Peripheral pulses 2+ throughout GI: Inspection: normal to inspection GI Palp: Yes Tenderness to palpation present (GI) (Right upper quadrant and epigastric area) Percussion: Yes normal to percussion Auscultation: normal bowel sounds Rectal Exam: deferred : General: Yes no CVA tenderness Back/Spine/Pelvis: Back: no CVA tenderness Skin: General skin exam: normal color Lesions: no lesions Rashes: no rashes Trauma: no lacerations or abrasions Wounds: no wounds Hair: normal Nails: normal Neuro: General: oriented to person, oriented to place, oriented to time and patient oriented x3 Cranial nerves: Yes Equal, round and reactive pupils present and Yes Normal hearing present Cognition (Neuro): normal cognition Speech: normal speech Gait exam (Neuro): Normal gait present Motor exam (neuro): 5/5 motor strength present throughout Sensory Exam: normal sensation Extrem: General: normal to inspection Right upper extremity: normal to inspection and shoulder/upper arm Left upper extremity: normal to inspection and shoulder/upper arm Right lower extremity: normal to inspection Left lower extremity: normal to inspection Psych: Appearance: grossly normal Mental Status: mental status grossly normal Speech and movement: Normal speech and movement present Affect: normal affect Attitude: cooperative Thought process: Normal thought process present Thought content: Yes Normal thought content present Insight: Good insight present (Psych) Judgement: Good judgement present (Psych) Results Labs Labs: Short CBC 03/22/25 Range/Units 22:07 WBC 23.1 H (4.5-10.0) K/mm3 Hgb 17.3 H (12.0-15.0) g/dL Hct 50.8 H (37.0-47.0) % Plt Count 340 (150-375) k/mm3 BMP 03/22/25 22:07 Sodium 140 Potassium 4.0 Chloride 102 Carbon Dioxide 26 BUN 21 H Creatinine 1.03 H Glucose 129 H Calcium 9.5 Cardiac Enzymes 03/22/25 Range/Units 22:07 Troponin I < 0.012 (0.000-0.034) ng/mL Liver Function 03/22/25 Range/Units 22:07 Total Bilirubin 0.5 (0.2-1.3) mg/dL AST 42 H (14-36) U/L ALT 46 H (6-35) U/L Alkaline Phosphatase 96 (38-126) U/L Albumin 5.3 H (3.5-5.1) g/dL Urine 03/22/25 Range/Units 22:08 Urine Color Yellow (Yellow) Urine Appearance Clear (Clear) Urine pH 5.0 (5.0-9.0) Ur Specific [place] 1.031 (1.001-1.035) Urine Protein Trace (Negative) mg/dL Urine Glucose (UA) Negative (Negative) mg/dL ECG Attestation: I personally reviewed and interpreted this ECG as follows: Interpretation: EKG is normal sinus rhythm with sinus arrhythmia heart rate 71 PA 130 QT for [address] scan - abdomen: Radiologist's impression: Preliminary CT of the abdomen pelvis revealed findings cholecystitis. Quality VTE Prophylaxis VTE prophylaxis: mechanical ordered Assessment and Plan Assessment and plan (1) Acute cholecystitis: Code(s): K81.0 - Acute cholecystitis Status: Acute Assessment and Plan: -CT the abdomen pelvis suggest cholecystitis. -mild transaminase -patient is NPO at this time -surgery has been consulted. -continue with Zosyn. -patient endorsed right upper quadrant abdominal pain that is worse with eating. -white count is 23.1. -continue with pain management -continue with IV fluids. -daily CBCs -blood cultures are pending (2) COPD (chronic obstructive pulmonary disease): Code(s): J44.9 - Chronic obstructive pulmonary disease, unspecified Status: Acute Assessment and Plan: -continue with patient's home inhalers.
--- NOTE | 2025-03-23 07:30 | PM.IMPN2 ---
Assessment and Plan Assessment and Plan (1) Acute cholecystitis: Code(s): K81.0 - Acute cholecystitis Status: Acute Assessment and Plan: CT abdomen/pelvis: preliminary read - Gallbladder is partially contracted with mild wall thickening and minimal surrounding infiltration suggesting inflammation/cholecystitis. No calcified gallstones. No biliary duct dilation. - IV pain management: Morphine 2 mg IV q4prn - Gentle IV fluid resuscitation - Leukocytosis on admission, not meeting sepsis criteria. Started Zosyn 3.375 mg every 6 hours on 03/23 - Blood culture drawn on 03/23: pending - Polycythemia on admission likely dehydration 2/2 decreased oral intake and vomiting - Monitor vital signs, I and O's, check stool output, neuro status and patient is a fall risk - Monitor serum electrolytes and CBC - Consult general surgery for further evaluation, appreciate assistance and recommendation (2) COPD (chronic obstructive pulmonary disease): Code(s): J44.9 - Chronic obstructive pulmonary disease, unspecified Status: Acute Assessment and Plan: Chronic, does not appear in acute exacerbation Continue home inhalers Time Spent With Patient Time with patient: 25 - 35 minutes Subjective Date/time seen: 03/23/25 07:30 Interval history: 54 year old female with past medical history of COPD presents to the hospital for right upper quadrant abdominal pain with associated nausea/vomiting. Patient is pleasant lying in bed. She continues to endorse slight right upper quadrant discomfort but states this is much improved since admission. She denies any current nausea/vomiting. She has no other complaints denying chest pain, palpitations, shortness of breath. Review of Systems Review of Systems: All systems reviewed & are unremarkable except as noted in HPI and below Exam Narrative: AF HR 82 RR 20 SpO2 97 BP 125/60 General: female in no acute respiratory distress who is nontoxic appearing, lying semi recumbent in bed. HEENT: Normocephalic. Atraumatic. Extraocular movement intact. Sclera clear and anicteric. No facial asymmetry. Chest: Lungs are clear to auscultation bilaterally. No wheezes or crackles. CV: Heart was regular rate and rhythm. Abd: Abdomen was soft. RUQ tenderness without guarding. Nondistended. Positive bowel sounds. Ext: No clubbing, cyanosis, or edema. DP pulses bilaterally. Neuro: Patient is alert. Speech is clear. Objective Data Vital Signs Vital Signs: Vital Signs - 24 hr 03/22/25 20:54 03/22/25 22:32 03/22/25 22:47 Temperature 97.4 F L Pulse Rate 90 81 81 Respiratory Rate 20 22 H 21 H Blood Pressure 134/80 112/46 L Pulse Oximetry 97 97 97 Oxygen Delivery Room Air 03/22/25 22:48 03/22/25 23:07 03/22/25 23:15 Temperature Pulse Rate 80 84 85 Respiratory Rate 17 19 16 Blood Pressure Pulse Oximetry 96 99 95 Oxygen Delivery 03/22/25 23:30 03/22/25 23:45 03/23/25 00:00 Temperature Pulse Rate 82 82 85 Respiratory Rate 18 17 18 Blood Pressure Pulse Oximetry 96 95 94 Oxygen Delivery 03/23/25 00:15 03/23/25 00:30 03/23/25 00:45 Temperature Pulse Rate 72 77 81 Respiratory Rate 18 15 16 Blood Pressure Pulse Oximetry 95 90 91 Oxygen Delivery 03/23/25 00:47 03/23/25 01:00 03/23/25 01:15 Temperature Pulse Rate 82 79 81 Respiratory Rate 14 16 16 Blood Pressure 126/76 Pulse Oximetry 94 94 96 Oxygen Delivery 03/23/25 01:16 03/23/25 01:35 03/23/25 01:56 Temperature Pulse Rate 79 77 86 Respiratory Rate 17 18 19 Blood Pressure 130/81 Pulse Oximetry 96 92 95 Oxygen Delivery 03/23/25 02:08 03/23/25 02:15 03/23/25 02:16 Temperature Pulse Rate 75 74 81 Respiratory Rate 16 14 18 Blood Pressure 107/61 Pulse Oximetry 92 93 96 Oxygen Delivery 03/23/25 02:30 03/23/25 02:31 03/23/25 02:45 Temperature Pulse Rate 85 78 89 Respiratory Rate 19 14 20 Blood Pressure 127/63 Pulse Oximetry 95 95 95 Oxygen Delivery 03/23/25 02:46 03/23/25 02:48 03/23/25 03:00 Temperature Pulse Rate 76 70 82 Respiratory Rate 15 14 16 Blood Pressure 131/63 Pulse Oximetry 96 95 98 Oxygen Delivery 03/23/25 03:15 03/23/25 03:16 03/23/25 03:30 Temperature Pulse Rate 75 73 82 Respiratory Rate 13 15 13 Blood Pressure 140/89 Pulse Oximetry 98 98 96 Oxygen Delivery 03/23/25 03:32 03/23/25 04:00 Temperature 97.8 F Pulse Rate 73 82 Respiratory Rate 13 20 Blood Pressure 125/71 125/60 Pulse Oximetry 96 97 Oxygen Delivery Intake/Output Intake/Output: Intake & Output 03/20/25 03/21/25 03/22/25 03/23/25 23:59 23:59 23:59 23:59 Intake Total 1050 Balance 1050 Meds/Results Medications: Active Medications Generic Name Dose Route Start Last Admin Trade Name Freq PRN Reason Stop Dose Admin Piperacillin Sod/Tazobactam 50 mls @ 100 mls/hr 03/23/25 08:00 Sod 3.375 gm/ Sodium Chloride IVPB Q6H YESICA Sodium Chloride 1,000 mls @ 125 mls/hr 03/23/25 02:15 03/23/25 03:33 Normal Saline Iv IV CONT 125 mls/hr .Q8H YESICA Administration Labs Labs: Laboratory Results - last 24 hr 03/22/25 03/22/25 03/22/25 22:07 22:08 22:17 WBC 23.1 H RBC 5.46 H Hgb 17.3 H Hct 50.8 H MCV 93.0 MCH 31.7 MCHC 34.1 RDW 12.8 Plt Count 340 MPV 9.0 Immature Gran % (Auto) 0.5 Neut % (Auto) 83.1 H Lymph % (Auto) 7.6 L Bradley % (Auto) 7.9 Eos % (Auto) 0.6 Baso % (Auto) 0.3 Lymph # (Auto) 1.75 Bradley # (Auto) 1.8 H Eos # (Auto) 0.1 Baso # (Auto) 0.1 Abs Immat Gran (auto) 0.12 H Absolute Neuts (auto) 19.2 H Absolute Nucleated RBC 0.000 Nucleated RBC % 0.0 Sodium 140 Potassium 4.0 Chloride 102 Carbon Dioxide 26 Anion Gap 12 BUN 21 H Creatinine 1.03 H Estim Creat Clear Calc Not Reportable Estimated GFR 56 L Glucose 129 H Calcium 9.5 Total Bilirubin 0.5 AST 42 H ALT 46 H Alkaline Phosphatase 96 Troponin I < 0.012 Total Protein 9.1 H Albumin 5.3 H Lipase 103 Urine Color Yellow Urine Appearance Clear Urine pH 5.0 Ur Specific [place] 1.031 Urine Protein Trace Urine Glucose (UA) Negative Urine Ketones Trace H Ur Blood (Man) Negative Urine Nitrate Negative Urine Bilirubin Negative Urine Urobilinogen 0.2 Leukocyte Esterase Rfl Negative Urine RBC 0-2 Urine WBC 6-10 H Ur Squamous Epith Cells Moderate Urine Bacteria Rare Urine Casts 0-2 POC Urine HCG, Qual Negative Quality VTE Prophylaxis VTE prophylaxis: mechanical ordered
[2025-03-23] MEDS: UMECLIDINIUM BROMIDE 62.5 MCG ELLIPTA 1 PUFF INHALATION (09:10)
[2025-03-23] MEDS: ACETAMINOPHEN 325 MG TABLET 650 MG PO (15:47)
--- NOTE | 2025-03-23 16:39 | P.CONS_ITS ---
Assessment and Plan Assessment and plan (1) RUQ pain: Code(s): R10.11 - Right upper quadrant pain Status: Acute Assessment and Plan: Patient has been having worsening right upper quadrant abdominal pain over the past several weeks. The likely due to her gallstones. He had severe attack yesterday was admitted to the hospital. She did have a elevated white blood count of 23,000 and have admission but her liver enzymes were all normal. Her pain is much better today and she has no nausea or vomiting. No fever. We will go and give her clear liquids today. I think she had a severe case of biliary colic rather than acute cholecystitis. If she and tolerated clear liquids today then we will likely advance her to solid food tomorrow and see if she can tolerate the solid food. If she can tolerate solid food and likely discharge home with plans to schedule an interval outpatient laparoscopic cholecystectomy in the next 1 to 2 weeks. Repeat labs for CBC and liver enzymes ordered for tomorrow already. Continue IV antibiotics for right now. (2) Gallstones: Code(s): K80.20 - Calculus of gallbladder without cholecystitis without obstruction Status: Acute Assessment and Plan: Noted on abdominal ultrasound today. No evidence of acute cholecystitis or chronic cholecystitis on imaging. Clinically she has no evidence of acute or chronic cholecystitis on abdominal exam. HPI Data of Consult Date/Time: 03/23/25 16:39 Requesting Physician: Anabella Helton MD Primary Care Provider: Sylvia Torre, PARMJIT Consult Narrative Reason for consult: Right upper quadrant abdominal pain Narrative: Beverley Michele is a 54 year old female who presented to the emergency room with severe right upper quadrant abdominal pain last evening. She states that she has been having pain in this location for the past several weeks. Pain is usually associated with eating especially spicy foods. She has started to avoid spicy foods because of the pain. The pain usually occurs in the right upper quadrant and more towards the epigastric region. No radiation of the pain to her back. She does sometimes have loose stools but she has quite a bit of bloating after eating. Her pain today has been good and really only has a pain of 1/10 presently. She has no nausea. She had abdominal ultrasound performed earlier today showing gallstones but no gallbladder wall thickening to suggest acute or chronic cholecystitis. [place] [address] when she was admitted and all of her liver enzymes were normal. White blood cell count was not repeated this morning. Her abdominal surgery history has included only 2 C-sections. The last 1 was 20 years ago. Review of Systems 2 Review of Systems: The remainder of the review of systems to include constitutional, HEENT, cardiovascular, respiratory, GI, , integumentary, musculoskeletal, endocrine, immunologic, hematologic, psychiatric, and neurologic are all negative except for which is mentioned above in the HPI. [facility] Past Medical History Medical History (Updated 03/23/25 @ 16:44 by Israel Lundy MD) Breast cancer (~2009) right breast mastectomy followed with chemotherapy last dose 01/2010 COPD (chronic obstructive pulmonary disease) Surgical History Surgical History (Updated 03/23/25 @ 07:59 by Nguyen Rodriguez APRN) H/O tubal ligation History of hysteroscopy (01/24/25) Hysterscopy D&C postmenopausal bleeding History of mastectomy (~08/2009) right breast Delivery by section x 2 Family History Family History Other H/O ovarian cancer half sister on paternal side Hypertension Grandparent Cerebrovascular accident paternal grandfather Diabetes mellitus maternal grandmother Carcinoma of colon grandmother maternal Mother Hypertension Father Hypertension Lymphatic leukemia Other Family history of cardiovascular disease Social History Social History (Updated 03/23/25 @ 07:53 by Nguyen Rodriguez APRN) Social History: The patient resides with her significant other. She has 2 children. 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 She is a former smoker. She denies any alcohol or drug use. Code status: Full code Years smoked: 10 Smoking status: Former smoker Tobacco type: cigarettes Second hand tobacco smoke exposure: No Smoking end date: 12/27/19 Alcohol intake: never Substance use: never Substance use type: does not use Lack of Transportation: No Lack of Food: Never True Current Housing: I Do Not Have Housing Concerned About Future Housing: No Difficulty Paying Gas/Electric Bills: No Difficulty Paying for Meds: No Currently Unemployed: No Education: High School Diploma/GED Difficulty w/ Childcare or Family Care: No Living arrangements: alone Additional living arrangements comments: 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 Gender identity (if verbalized by the patient): Female Sexual Orientation (if Verbalized by the Patient): Straight or Heterosexual Spiritual care concerns: No Meds Home Medications and Allergies Home Medications ?Medication ?Instructions ?Recorded ?Confirmed ?Type umeclidinium 62.5 mcg/actuation 1 inh inhalation DAILY 01/21/25 03/23/25 History blister powder for inhalation (Incruse Ellipta) albuterol sulfate 90 mcg/actuation 2 inh inhalation Q4 -6H PRN asthma 01/22/25 03/23/25 History aerosol inhaler cholecalciferol (vitamin D3) 25 1,000 unit PO DAILY 03/23/25 History mcg (1,000 unit) tablet (Vitamin D3) Allergies Allergy/AdvReac Type Severity Reaction Status Date / Time Cat Dander Allergy Intermediate Difficulty Uncoded 02/12/25 09:56 Breathing Vital Signs Vital Signs - 24 hr 03/22/25 20:54 03/22/25 22:32 03/22/25 22:47 Temperature 36.3 C L Pulse Rate 90 81 81 Respiratory Rate 20 22 H 21 H Blood Pressure 134/80 112/46 L Pulse Oximetry 97 97 97 Oxygen Delivery Room Air 03/22/25 22:48 03/22/25 23:07 03/22/25 23:15 Temperature Pulse Rate 80 84 85 Respiratory Rate 17 19 16 Blood Pressure Pulse Oximetry 96 99 95 Oxygen Delivery 03/22/25 23:30 03/22/25 23:45 03/23/25 00:00 Temperature Pulse Rate 82 82 85 Respiratory Rate 18 17 18 Blood Pressure Pulse Oximetry 96 95 94 Oxygen Delivery 03/23/25 00:15 03/23/25 00:30 03/23/25 00:45 Temperature Pulse Rate 72 77 81 Respiratory Rate 18 15 16 Blood Pressure Pulse Oximetry 95 90 91 Oxygen Delivery 03/23/25 00:47 03/23/25 01:00 03/23/25 01:15 Temperature Pulse Rate 82 79 81 Respiratory Rate 14 16 16 Blood Pressure 126/76 Pulse Oximetry 94 94 96 Oxygen Delivery 03/23/25 01:16 03/23/25 01:35 03/23/25 01:56 Temperature Pulse Rate 79 77 86 Respiratory Rate 17 18 19 Blood Pressure 130/81 Pulse Oximetry 96 92 95 Oxygen Delivery 03/23/25 02:08 03/23/25 02:15 03/23/25 02:16 Temperature Pulse Rate 75 74 81 Respiratory Rate 16 14 18 Blood Pressure 107/61 Pulse Oximetry 92 93 96 Oxygen Delivery 03/23/25 02:30 03/23/25 02:31 03/23/25 02:45 Temperature Pulse Rate 85 78 89 Respiratory Rate 19 14 20 Blood Pressure 127/63 Pulse Oximetry 95 95 95 Oxygen Delivery 03/23/25 02:46 03/23/25 02:48 03/23/25 03:00 Temperature Pulse Rate 76 70 82 Respiratory Rate 15 14 16 Blood Pressure 131/63 Pulse Oximetry 96 95 98 Oxygen Delivery 03/23/25 03:15 03/23/25 03:16 03/23/25 03:30 Temperature Pulse Rate 75 73 82 Respiratory Rate 13 15 13 Blood Pressure 140/89 Pulse Oximetry 98 98 96 Oxygen Delivery 03/23/25 03:32 03/23/25 04:00 03/23/25 08:00 Temperature 36.6 C Pulse Rate 73 82 Respiratory Rate 13 20 Blood Pressure 125/71 125/60 Pulse Oximetry 96 97 Oxygen Delivery Room Air 03/23/25 09:11 03/23/25 14:00 Temperature 36.7 C Pulse Rate 77 81 Respiratory Rate 16 18 Blood Pressure 124/67 Pulse Oximetry 93 Oxygen Delivery Exam 2 Const: General: comfortable and no acute distress HENMT: Ears: TM's normal bilaterally Face/Nose/Sinus: Normal nares present Mouth: Yes moist mucous membranes Eyes: General: appearance normal, both eyes and all related structures S clera: sclerae normal (No scleral icterus) Pupils: Equal, round and reactive pupils present EOM: EOMs intact bilaterally Neck: Neck: supple and no JVD Resp: Effort & Inspection: normal respiratory effort Auscultation: clear to auscultation bilaterally Cardio: Rate: regular rate Rhythm: regular rhythm GI: Other: Abdomen is soft and moderately obese. She has minimal tenderness to palpation right upper quadrant in the epigastric region now. Gallbladder is not palpable. No masses or ventral hernias. No guarding. Skin: General skin exam: normal color and no rashes or lesions noted Neuro: General: gait normal Speech: normal speech Motor exam (neuro): 5 /5 motor strength present throughout Sensory Exam: normal sensation Extrem: General: normal to inspection Psych: Mental Status: mental status grossly normal Affect: normal affect Results Labs 03/22/25 22:07 03/22/25 22:07 Labs: Short CBC 03/22/25 Range/Units 22:07 WBC 23.1 H (4.5-10.0) K/mm3 Hgb 17.3 H (12.0-15.0) g/dL Hct 50.8 H (37.0-47.0) % Plt Count 340 (150-375) k/mm3 BMP 03/22/25 22:07 Sodium 140 Potassium 4.0 Chloride 102 Carbon Dioxide 26 BUN 21 H Creatinine 1.03 H Glucose 129 H Calcium 9.5 Cardiac Enzymes 03/22/25 Range/Units 22:07 Troponin I < 0.012 (0.000-0.034) ng/mL Liver Function 03/22/25 Range/Units 22:07 Total Bilirubin 0.5 (0.2-1.3) mg/dL AST 42 H (14-36) U/L ALT 46 H (6-35) U/L Alkaline Phosphatase 96 (38-126) U/L Albumin 5.3 H (3.5-5.1) g/dL Urine 03/22/25 Range/Units 22:08 Urine Color Yellow (Yellow) Urine Appearance Clear (Clear) Urine pH 5.0 (5.0-9.0) Ur Specific [place] 1.031 (1.001-1.035) Urine Protein Trace (Negative) mg/dL Urine Glucose (UA) Negative (Negative) mg/dL Imaging Radiologist's impression: Ultrasound Report Signed Patient: Beverley Michele : 1970 MR#: [id number] Age: 54 Acct:[id number] Loc: [id number] ADM Date: 03/23/[address]: Anabella Helton M.D. Ordering Physician: Analia Faria PA-C Date of Service: 03/23/25 Procedure(s): US right upper quadrant Accession Number(s): [id number] cc: Ray, Sylvia PARNELL; Analia Faria PA-C; Anabella Helton MD~ EXAMINATION: US right upper quadrant DATE: 03/23/2025 08:45 INDICATION: Right upper quadrant pain. TECHNIQUE: Multiple grayscale and Doppler ultrasound images of the abdomen were obtained. COMPARISON: CT abdomen and pelvis dated 01/01/2025. FINDINGS: Multiple mobile gallstone in the gallbladder. There is no edema gallbladder wall. No localized tenderness over the gallbladder. Mild hepatomegaly 19 cm in length. Portal vein and hepatic veins are patent. Common hepatic duct measures 6 mm in diameter. Right kidney is mildly atrophic in size. No free fluid in the upper right abdomen. Were visualization of pancreas aorta and retroperitoneum. IMPRESSION: 1. Mobile gallstone in the gallbladder. No ultrasound evidence of acute cholecystitis. Borderline dimensions of common hepatic duct. 2. Mild hepatomegaly. Portal vein and hepatic veins are patent. No free fluid. Reviewed, dictated and finalized at location T. N EXAMINER Please be advised this is a medical document. It is intended for [id number] communication. It is written in medical language and may contain unfamiliar abbreviations or verbiage. Medical documents are intended to carry relevant information, facts as evident, and the clinical opinion of the practitioner at the time of the encounter. This report may have been done utilizing a voice recognition system. Attempts have been made to correct errors. However, there may be uncorrected grammatical, spelling, and recognition errors present. The file time of this note does not necessarily represent the time of service. Dictated By: Patric Gomez 03/23/25 1347 Signed By: <Electronically signed by Patric Gomez in OV>
[2025-03-23] MEDS: ONDANSETRON INJ 4 MG/2 ML VIAL IV PUSH (20:09)
[2025-03-23] MEDS: MORPHINE SULFATE (*CRX) 4 MG/ML INJ 2 MG IV PUSH (21:35)
[2025-03-24] VITALS (11 sets, daily range): BP systolic 112–164; BP diastolic 61–98; PULSE 74–91; RESP 15–20; TEMP 36.4–37; O2SAT 92–100
[2025-03-24] MEDS: SODIUM CHLORIDE 0.9% IV 1,000 ML 125 ML IV CONT ×2 (00:32→08:52)
[2025-03-24] MEDS: PIPERACILLIN/TAZOBACTAM SOD 3.375 GM in SODIUM CHLORIDE 0.9% IV 50 ML 100 ML IVPB ×2 (02:51→08:52)
[2025-03-24 06:30] LABS: Hematocrit 41.4 % (37.0-47.0); Hemoglobin 13.5 g/dL (12.0-15.0); Mean Corpuscular HGB Conc 32.6 g/dl (32-36); Mean Corpuscular Hemoglobin 30.8 pg (26-34); Mean Corpuscular Volume 94.5 fl (80-100); Platelet Count Result 261 k/mm3 (150-375); Red Blood Count 4.38 M/mm3 (4.2-5.4); White Blood Count 6.4 K/mm3 (4.5-10.0)
[2025-03-24 06:52] LABS: Alanine Aminotransferase 32 U/L (6-35); Albumin Level 3.7 g/dL (3.5-5.1); Alkaline Phosphatase 71 U/L (38-126); Anion Gap 4 mmol/L (4-12); Aspartate Amino Transferase 31 U/L (14-36); Bilirubin,Total 0.5 mg/dL (0.2-1.3); Blood Urea Nitrogen 11 mg/dL (7-17); Calcium 8.2 mg/dL (8.4-10.2); Carbon Dioxide 24 mmol/L (22-30); Chloride 111 mmol/L (98-107); Estimated Glomerular Filt Rate > 60; Glucose 94 mg/dL (65-110); Potassium 3.8 mmol/L (3.4-5.0); Sodium 139 mmol/L (137-145); Total Protein 6.3 g/dL (6.3-8.2)
--- NOTE | 2025-03-24 08:24 | WPDHPUPDATE1 ---
History and Physical Update Update Date/Time: 03/24/25 08:24 History and Physical has been reviewed, including an updated exam of the patient. There are NO changes in the patient's condition. Risks, benefits, and alternatives have been discussed and questions answered. Patient agrees to proceed with procedure.
--- NOTE | 2025-03-24 08:28 | PM.IMPN2 ---
Assessment and Plan Assessment and Plan (1) Acute cholecystitis: Code(s): K81.0 - Acute cholecystitis Status: Acute Assessment and Plan: CT abdomen/pelvis: preliminary read - Gallbladder is partially contracted with mild wall thickening and minimal surrounding infiltration suggesting inflammation/cholecystitis. No calcified gallstones. No biliary duct dilation. - IV pain management: Morphine 2 mg IV q4prn and norco 5-325 mg q4prn - Gentle IV fluid resuscitation, discontinue when tolerating diet - Diet: clear liquids, advance per surgery - Leukocytosis on admission, not meeting sepsis criteria. Started Zosyn 3.375 mg every 6 hours on 03/23, stopped on 03/24 per surgery. - Blood culture drawn on 03/23: pending - Polycythemia on admission likely dehydration 2/2 decreased oral intake and vomiting. Improved with fluids. - Monitor vital signs, I and O's, check stool output, neuro status and patient is a fall risk - Monitor serum electrolytes and CBC - Consult general surgery for further evaluation, appreciate assistance and recommendation s/p laparoscopic cholecystectomy on 03/[address] Lundy (2) COPD (chronic obstructive pulmonary disease): Code(s): J44.9 - Chronic obstructive pulmonary disease, unspecified Status: Acute Assessment and Plan: Chronic, does not appear in acute exacerbation Continue home inhalers Time Spent With Patient Time with patient: 25 - 35 minutes Subjective Date/time seen: 03/24/25 08:28 Interval history: 54 year old female with past medical history of COPD presents to the hospital for right upper quadrant abdominal pain with associated nausea/vomiting. Patient is pleasant lying comfortably in bed. She is scheduled for surgery later this morning. She states that pain is well controlled on the current regimen and denies any nausea/vomiting at this time. She has no other complaints denying chest pain, palpitations, and shortness a breath. Review of Systems Review of Systems: All systems reviewed & are unremarkable except as noted in HPI and below Exam Narrative: AF HR 83 RR 18 SpO2 96 BP 123/72 General: female in no acute respiratory distress who is nontoxic appearing, lying semi recumbent in bed. HEENT: Normocephalic. Atraumatic. Extraocular movement intact. Sclera clear and anicteric. No facial asymmetry. Chest: Lungs are clear to auscultation bilaterally. No wheezes or crackles. CV: Heart was regular rate and rhythm. Abd: Abdomen was soft. Mild RUQ tenderness without guarding. Nondistended. Positive bowel sounds. Ext: No clubbing, cyanosis, or edema. DP pulses bilaterally. Neuro: Patient is alert. Speech is clear. Objective Data Vital Signs Vital Signs: Vital Signs - 24 hr 03/23/25 09:11 03/23/25 14:00 03/23/25 20:00 Temperature 98.0 F 97.8 F Pulse Rate 77 81 79 Respiratory Rate 16 18 20 Blood Pressure 124/67 131/77 Pulse Oximetry 93 96 Oxygen Delivery 03/23/25 20:00 03/24/25 00:00 03/24/25 04:00 Temperature 98.5 F 98.5 F Pulse Rate 74 80 Respiratory Rate 19 20 Blood Pressure 112/61 132/71 Pulse Oximetry 94 94 Oxygen Delivery Room Air 03/24/25 08:00 Temperature 98.6 F Pulse Rate 83 Respiratory Rate 18 Blood Pressure 123/72 Pulse Oximetry 96 Oxygen Delivery Intake/Output Intake/Output: Intake & Output 03/21/25 03/22/25 03/23/25 03/24/25 23:59 23:59 23:59 23:59 Intake Total 3200 Balance 3200 Meds/Results Medications: Active Medications Generic Name Dose Route Start Last Admin Trade Name Freq PRN Reason Stop Dose Admin Acetaminophen 650 mg 03/23/25 15:28 03/23/25 15:47 Acetaminophen 325 Mg Tablet PO 650 mg Q6H PRN Administration Mild Pain (1-3) or Fever Albuterol 2 puff 03/23/25 07:51 Albuterol Sulfate (*Sp) Aerosol 1 Puff INHALATION Q4-6H PRN asthma Piperacillin Sod/Tazobactam 50 mls @ 100 mls/hr 03/23/25 08:00 03/24/25 02:51 Sod 3.375 gm/ Sodium Chloride IVPB 100 mls/hr Q6H YESICA Administration Sodium Chloride 1,000 mls @ 125 mls/hr 03/23/25 02:15 03/24/25 00:32 Normal Saline Iv IV CONT 125 mls/hr .Q8H YESICA Administration Morphine Sulfate 2 mg 03/23/25 07:41 03/23/25 21:35 Morphine Sulfate (*Crx) 4 Mg/Ml Inj IV PUSH 2 mg Q4H PRN Administration Pain Rated 7-10 Ondansetron HCl 4 mg 03/23/25 18:58 03/23/25 20:09 Ondansetron Inj 4 Mg/2 Ml Vial IV PUSH 4 mg Q4H PRN Administration Nausea And Vomiting Umeclidinium [place] 1 puff 03/23/25 09:00 03/23/25 09:10 Umeclidinium [place] 62.5 Mcg Ellipta INHALATION 1 puff DAILY YESICA Administration Radiology Results: ITS Impressions Upper Quadrant Ultrasound 03/23/25 13:47 IMPRESSION: 1. Mobile gallstone in the gallbladder. No ultrasound evidence of acute cholecystitis. Borderline dimensions of common hepatic duct. 2. Mild hepatomegaly. Portal vein and hepatic veins are patent. No free fluid. Labs Labs: Laboratory Results - last 24 hr 03/24/25 06:05 WBC 6.4 RBC 4.38 Hgb 13.5 D Hct 41.4 MCV 94.5 MCH 30.8 MCHC 32.6 RDW 12.7 Plt Count 261 MPV 9.2 Sodium 139 Potassium 3.8 Chloride 111 H Carbon Dioxide 24 Anion Gap 4 BUN 11 D Creatinine 0.86 Estim Creat Clear Calc Not Reportable Estimated GFR > 60 Glucose 94 Calcium 8.2 L Total Bilirubin 0.5 AST 31 ALT 32 Alkaline Phosphatase 71 Total Protein 6.3 Albumin 3.7 Blood Type A Positive Antibody Screen Negative Quality VTE Prophylaxis VTE prophylaxis: mechanical ordered
--- NOTE | 2025-03-24 09:25 | PC.NURSE ---
RN and community representative transported pt via bed to surgery
--- NOTE | 2025-03-24 09:48 | WPDANESEPPF ---
Anes - Initial Pre Proc Eval Procedure: Operation Date: 03/24/25 10:00 Proposed Procedures p Laparoscopic Cholecystectomy - Israel Lundy MD Date/Time: 03/24/25 09:48 Surgeon: Anabella Helton MD Pre Op Diagnosis: Acute cholecystitis Patient Data Age: 54 Gender: F Height: 1.5 m Weight: 68.6 kg Last Vital Signs Temp 98.6 F 03/24/25 08:00 Pulse 83 03/24/25 08:00 Resp 18 03/24/25 08:00 BP 123/72 03/24/25 08:00 Pulse Ox 96 03/24/25 08:00 O2 Del Method Room Air 03/23/25 20:00 Allergies Allergy/AdvReac Type Severity Reaction Status Date / Time Cat Dander Allergy Intermediate Difficulty Uncoded 02/12/25 09:56 Breathing Home Medications ?Medication ?Instructions ?Recorded ?Confirmed ?Type umeclidinium 62.5 mcg/actuation 1 inh inhalation DAILY 01/21/25 03/23/25 History blister powder for inhalation (Incruse Ellipta) albuterol sulfate 90 mcg/actuation 2 inh inhalation Q4-6H PRN asthma 01/22/25 03/23/25 History aerosol inhaler cholecalciferol (vitamin D3) 25 1,000 unit PO DAILY 01/22/25 03/23/25 History mcg (1,000 unit) tablet (Vitamin D3) Laboratory Tests 03/24/25 06:05 WBC 6.4 K/mm3 (4.5-10.0) RBC 4.38 M/mm3 (4.2-5.4) Hgb 13.5 D g/dL (12.0-15.0) Hct 41.4 % (37.0-47.0) MCV 94.5 fl (80-100) MCH 30.8 pg (26-34) MCHC 32.6 g/dl (32-36) RDW 12.7 % (11.5-14.5) Plt Count 261 k/mm3 (150-375) MPV 9.2 fl (7.4-10.4) Sodium 139 mmol/L (137-145) Potassium 3.8 mmol/L (3.4-5.0) Chloride 111 H mmol/L (98-107) Carbon Dioxide 24 mmol/L (22-30) Anion Gap 4 mmol/L (4-12) BUN 11 D mg/dL (7-17) Creatinine 0.86 mg/dL (0.7-1.0) Estim Creat Clear Calc Not Reportable Estimated GFR > 60 (59 - ) Glucose 94 mg/dL (65-110) Calcium 8.2 L mg/dL (8.4-10.2) Total Bilirubin 0.5 mg/dL (0.2-1.3) AST 31 U/L (14-36) ALT 32 U/L (6-35) Alkaline Phosphatase 71 U/L (38-126) Total Protein 6.3 g/dL (6.3-8.2) Albumin 3.7 g/dL (3.5-5.1) Blood Type A Positive Antibody Screen Negative Patient hx anesthesia problems: post op nausea/vomiting (w mastectomy in the past. ) Family hx anesthesia problems: none Results Review: All pre-operative results and documents have been reviewed as part of the pre-operative evaluation. [facility] Past Medical History Medical History Breast cancer (~2009) right breast mastectomy followed with chemotherapy last dose 01/2010 COPD (chronic obstructive pulmonary disease) Surgical History Surgical History H/O tubal ligation History of hysteroscopy (01/24/25) Hysterscopy D&C postmenopausal bleeding History of mastectomy (~08/2009) right breast Delivery by section x 2 Family History Family History Other H/O ovarian cancer half sister on paternal side Hypertension Grandparent Cerebrovascular accident paternal grandfather Diabetes mellitus maternal grandmother Carcinoma of colon grandmother maternal Mother Hypertension Father Hypertension Lymphatic leukemia Other Family history of cardiovascular disease Social History Social History Social History: The patient resides with her significant other. She has 2 children. 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 She is a former smoker. She denies any alcohol or drug use. Code status: Full code Years smoked: 10 Smoking status: Former smoker Tobacco type: cigarettes Second hand tobacco smoke exposure: No Smoking end date: 12/27/19 Alcohol intake: never Substance use: never Substance use type: does not use Lack of Transportation: No Lack of Food: Never True Current Housing: I Do Not Have Housing Concerned About Future Housing: No Difficulty Paying Gas/Electric Bills: No Difficulty Paying for Meds: No Currently Unemployed: No Education: High School Diploma/GED Difficulty w/ Childcare or Family Care: No Living arrangements: alone Additional living arrangements comments: 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 Gender identity (if verbalized by the patient): Female Sexual Orientation (if Verbalized by the Patient): Straight or Heterosexual Spiritual care concerns: No Anes - Eval Final PreProcedure Day of Procedure 03/24/25 09:48 Patient weight: obese Lungs: normal air movement Airway: Mallampati scale class II Neurological: alert and oriented Last oral intake: >/= 8 hours ASA classification: II Emergent: no Anesthetic plan: proceed Anesthesia type and monitoring: general ETT and standard monitoring Results Review: All pre-operative results and documents have been reviewed as part of the pre-operative evaluation. Ex smoker, quit approx 2009, dx of COPD present, hx of breast ca s/p mastectomy approx 2009. Pt active typically, walks 1-2 fos, no cp or sob. Informed Consent: The patient's anesthetic plan and its attendant risks and benefits were discussed with the patient/family/POA. Questions were solicited and answers provided to the satisfaction of the patient/family/POA.
--- NOTE | 2025-03-24 10:59 | S_PTH ---
PATIENT: Beverley Michele LOC: [id number] U#:[id number] AGE/SX: 54/F ROOM: 314 RE03/23/[address]: Frances Hodges MD : 1970 BED: 01 DIS: 03/25/2025 SPEC #: [id number] RECD: 03/25/25 08:22 STATUS: MARIAN GALICIA #: [id number] LETICIA: 03/24/25 10:[address]: Israel Lundy DEPT: [facility] RECD BY: Sheila Evans ENTERED: 03/25/25 08:22 SP TYPE: Surgical OTHR DR: Sylvia Torre, MD Arcelia Beltrán PA-C Raj M. Sajid, MD Tissues: A - Gallbladder Procedures: Hematoxylin and Eosin Stain Gross and Microscopic Level 3
[2025-03-24] MEDS: LIDO 1%/EPINEPHRINE 1:100,000 50 ML VIAL (11:05)
[2025-03-24] MEDS: LACTATED RINGERS 1,000 ML 30 ML IV CONT ×2 (12:18→12:30)
--- NOTE | 2025-03-24 12:22 | W.PM.PROC2 ---
Procedure Note - Detailed Date of Procedure 03/24/25 Pre-op Diagnosis Acute cholecystitis on chronic cholecystitis secondary to gallstones Post-op Diagnosis Same Procedure Performed Laparoscopic cholecystectomy Surgeon Israel Lundy MD [employer]scape [employer] [facility] Anesthesia General Indications Patient is a 54-year-old female who has been having issues with eating spicy and fatty foods with right upper quadrant abdominal pain 0 weeks. She had a severe episode of pain yesterday and presented to the emergency room. She was found to have mildly thickened gallbladder wall with trace pericholecystic fluid on CT scan. White blood count was elevated liver enzymes were normal. She was admitted to the hospital started on IV antibiotics. Abdominal ultrasound was then performed showing gallstones the gallbladder but no significant pericholecystic fluid or gallbladder wall thickening. White blood cell count normalized and liver enzymes remain normal. Presents now for laparoscopic cholecystectomy. Findings Patient had minimal acute inflammatory changes the gallbladder with a little bit of edema of the gallbladder wall. She did seem to have some chronic thickening of the gallbladder wall suggestive of chronic changes of the gallbladder from cholecystitis. She had a single large gallstone within the neck of the gallbladder. Description of Procedure After informed consent was obtained patient brought to the operating room she was placed supine position and general endotracheal anesthesia was administered. The abdomen was then prepped and draped usual sterile fashion. A time-out was then performed correctly identifying the patient as well as procedure to be performed. She was already on scheduled IV antibiotics. I then proceeded entered the abdomen left upper quadrant utilizing a 5mm Optiview port. Once inside the abdomen insufflated to adequate pneumoperitoneum of 15mmHg of CO2. There were few adhesions of the omentum to the periumbilical region. I then placed a 5mm left lateral abdominal wall trocar port and then utilizing laparoscopic que I proceeded to perform adhesiolysis of the omentum off of the abdominal wall around the umbilicus. I then placed a 5mm periumbilical trocar port under direct visualization and then removed the laparoscopic to the periumbilical trocar port. Looking into the upper portions of the abdomen I could see the gallbladder which was dilated and mildly thickened with both edema and chronic thickening of the gallbladder wall. I then placed a 10mm epigastric trocar port and 2 more right lateral subcostal 5mm trocar ports all under direct visualization. The gallbladder was then held with a laparoscopic grasper at the dome and elevated over the right half liver towards the right shoulder. The left lobe of liver was so large that it was obscuring my view of the infundibular gallbladder so this was retracted laterally with a laparoscopic Kittner. A 2nd grasper was then used to the gallbladder at the infundibulum. The patient had very redundant infundibulum of the gallbladder over the lateral traction I was then able to get a good view of the cholecystic triangle and then proceed stripping down visceral peritoneum off of the infundibular gallbladder. I then proceeded to dissect out the cystic duct circumferentially. Cystic artery identified and dissected out circumferentially as well. Posterior wall the gallbladder infundibulum dissected free liver into the critical view was obtained. At this point I then placed 2 clips proximally cystic duct and 2 clips distally high on infundibular gallbladder. The cystic duct was then divided with Endo Que. In similar fashion cystic artery was then clipped and divided as well. The gallbladder was resected off the liver utilized electrocautery. There was no sludge of any bile or stones. Once the gallbladder was free from the liver is placed into an Endo-Catch bag and brought out through the epigastric port site. Gallbladder had a singular large gallstone measuring approximately 1/2 to 2 cm in diameter. The gallbladder and the stone was sent to pathology for examination. I then irrigated out the right upper quadrant the abdomen the gallbladder fossa with sterile saline solution. There was a rather raw surface area which was pretty hemostatic. I elected to place Cynthia topical hemostatic agent onto the liver bed with a laparoscopic applicator. I then aspirated the fluid from the right upper quadrant the abdomen from the pelvis. I then removed all the trocar ports under direct visualization all port sites appeared hemostatic. The abdomen was allowed to decompress. I then closed the epigastric trocar port fascial defect utilizing 0 Vicryl suture at the fascial level. The port sites were then irrigated sterile saline solution hemostasis was good. I then closed all the port sites utilizing a running subcuticular 4-0 Monocryl suture at the skin level. Incisions were then sealed with skin glue. The patient tolerated the procedure well no complications. All sponges, needles, and instrument counts were correct at the end procedure. EBL was _30__cc. The patient was awakened and taken to recovery in stable and satisfactory condition. Implants None Estimated Blood Loss 30 Drains No Packing No Pathology Yes (Gallbladder and gallstones to pathology) Complications No immediate complications Condition Stable Disposition PACU [facility] Billing Surgery - Charge Forward: Surgery Billing
[2025-03-24] MEDS: HYDROcodone/acetaminophen (*CRX) 5-325 MG TABLET 1 TAB PO ×2 (13:47→17:52)
[2025-03-24] MEDS: MORPHINE SULFATE (*CRX) 4 MG/ML INJ 2 MG IV PUSH (14:23)
[2025-03-25] VITALS: BP 124/72; PULSE 83; RESP 20; TEMP 37; O2SAT 98
[2025-03-25 04:00] VITALS: BP 122/70; PULSE 79; RESP 19; TEMP 36.7; O2SAT 94
[2025-03-25 06:09] LABS: Hematocrit 43.0 % (37.0-47.0); Hemoglobin 14.1 g/dL (12.0-15.0); Mean Corpuscular HGB Conc 32.8 g/dl (32-36); Mean Corpuscular Hemoglobin 31.1 pg (26-34); Mean Corpuscular Volume 94.7 fl (80-100); Platelet Count Result 270 k/mm3 (150-375); Red Blood Count 4.54 M/mm3 (4.2-5.4); White Blood Count 9.6 K/mm3 (4.5-10.0)
[2025-03-25 06:21] LABS: Alanine Aminotransferase 46 U/L (6-35); Albumin Level 4.1 g/dL (3.5-5.1); Alkaline Phosphatase 72 U/L (38-126); Anion Gap 6 mmol/L (4-12); Aspartate Amino Transferase 48 U/L (14-36); Bilirubin,Total 0.8 mg/dL (0.2-1.3); Blood Urea Nitrogen 7 mg/dL (7-17); Calcium 8.8 mg/dL (8.4-10.2); Carbon Dioxide 28 mmol/L (22-30); Chloride 105 mmol/L (98-107); Estimated Glomerular Filt Rate > 60; Glucose 91 mg/dL (65-110); Potassium 4.0 mmol/L (3.4-5.0); Sodium 139 mmol/L (137-145); Total Protein 7.0 g/dL (6.3-8.2)
[2025-03-25 08:00] VITALS: BP 116/74; PULSE 74; RESP 18; TEMP 36.8; O2SAT 97
[2025-03-25] MEDS: UMECLIDINIUM BROMIDE 62.5 MCG ELLIPTA 1 PUFF INHALATION (08:07)
[2025-03-25 08:09] VITALS: PULSE 71; RESP 16
[2025-03-25] MEDS: CHOLECALCIFEROL (VITAMIN D3) 25 MCG (1,000 UNITS) TABLET PO (08:44)
[2025-03-25] MEDS: HYDROcodone/acetaminophen (*CRX) 5-325 MG TABLET 1 TAB PO (09:20)
--- NOTE | 2025-03-25 09:45 | P.PN_ITS ---
Progress Note: A&P Assessment and Plan (1) Acute cholecystitis: Code(s): K81.0 - Acute cholecystitis Status: Acute Assessment and Plan: Status post laparoscopic cholecystectomy postop day 1 for acute on chronic cholecystitis secondary to cholelithiasis. She is doing very well this morning. Tolerating solid food already. She was walking in the hallways without difficulty. Hemodynamically stable and afebrile. Labs are all normal. She can be discharged home today. Discharge instructions from surgery standpoint are listed in her discharge instructions. Patient stated that she only wanted to take Tylenol at home and did not feel that she needs to be discharged home with any narcotic pain medications. (2) Gallstones: Code(s): K80.20 - Calculus of gallbladder without cholecystitis without obstruction Status: Acute Subjective Date/time seen: 03/25/25 09:45 Interval history: Patient doing very well this morning. Walking in the hallways. Tolerated solid food for breakfast and did not have any nausea or increasing abdominal pain. She has just a little sore around her port sites. White blood cell count is normal. Hemodynamically stable. Exam GI: Other: Abdomen is soft and nondistended. Port site incisions are healing well. No redness or drainage. Skin glue in place. Expanded mild tenderness to palpation. Objective Data Vital Signs Vital Signs: Vital Signs - 24 hr 03/24/25 12:18 03/24/25 12:30 03/24/25 12:45 Temperature 36.4 C Pulse Rate 77 84 88 Respiratory Rate 15 16 16 Blood Pressure 154/81 H 159/81 H 164/90 H Pulse Oximetry 100 100 92 Oxygen Delivery Simple Face Mask Simple Face Mask Room Air Oxygen Flow Rate 8 8 03/24/25 13:00 03/24/25 13:15 03/24/25 13:30 Temperature Pulse Rate 91 78 74 Respiratory Rate 18 15 15 Blood Pressure 144/84 H 156/98 H 160/84 H Pulse Oximetry 93 97 97 Oxygen Delivery Nasal Cannula Nasal Cannula Nasal Cannula Oxygen Flow Rate 2 2 2 03/24/25 16:00 03/24/25 20:00 03/24/25 20:00 Temperature 36.9 C 36.8 C Pulse Rate 86 85 85 Respiratory Rate 18 19 19 Blood Pressure 114/67 130/74 Pulse Oximetry 97 98 98 Oxygen Delivery Nasal Cannula Oxygen Flow Rate 2 03/25/25 00:00 03/25/25 04:00 03/25/25 08:00 Temperature 37.0 C 36.7 C 36.8 C Pulse Rate 83 79 74 Respiratory Rate 20 19 18 Blood Pressure 124/72 122/70 116/74 Pulse Oximetry 98 94 97 Oxygen Delivery Oxygen Flow Rate 03/25/25 08:09 Temperature Pulse Rate 71 Respiratory Rate 16 Blood Pressure Pulse Oximetry Oxygen Delivery Oxygen Flow Rate Intake/Output Intake/Output: Intake & Output 03/22/25 03/23/25 03/24/25 03/25/25 23:59 23:59 23:59 23:59 Intake Total 3200 1869.2 700 Balance 3200 1869.2 700 Meds/Results Medications: Active Medications Generic Name Dose Route Start Last Admin Trade Name Freq PRN Reason Stop Dose Admin Acetaminophen 650 mg 03/23/25 15:28 03/23/25 15:47 Acetaminophen 325 Mg Tablet PO 650 mg Q6H PRN Administration Mild Pain (1-3) or Fever Acetaminophen 1,000 mg 03/24/25 13:35 Acetaminophen 500 Mg Tablet PO Q6H PRN Mild Pain (1-3) or Fever Hydrocodone Bitart/Acetaminophen 1 tab 03/24/25 13:35 03/25/25 09:20 Hydrocodone/Acetaminophen (*Crx) 5-325 Mg Tablet PO 1 tab Q4H PRN Administration Pain Rated 4-6 Albuterol 2 puff 03/23/25 07:51 Albuterol Sulfate (*Sp) Aerosol 1 Puff INHALATION Q4-6H PRN asthma Morphine Sulfate 2 mg 03/23/25 07:41 03/24/25 14:23 Morphine Sulfate (*Crx) 4 Mg/Ml Inj IV PUSH 2 mg Q4H PRN Administration Pain Rated 7-10 Ondansetron HCl 4 mg 03/23/25 18:58 03/23/25 20:09 Ondansetron Inj 4 Mg/2 Ml Vial IV PUSH 4 mg Q4H PRN Administration Nausea And Vomiting Oxycodone HCl 5 mg 03/24/25 13:35 Oxycodone Hcl (*Crx) 5 Mg Tab Ir PO Q6H PRN Pain Rated 7-10 Umeclidinium Pingree 1 puff 03/23/25 09:00 03/25/25 08:07 Umeclidinium Pingree 62.5 Mcg Ellipta INHALATION 1 puff DAILY YESICA Administration Vitamin D 25 mcg 03/25/25 09:00 03/25/25 08:44 Cholecalciferol (Vitamin D3) 25 Mcg (1,000 Units) Tablet PO 25 mcg DAILY YESICA Administration Radiology Results: ITS Impressions Upper Quadrant Ultrasound 03/23/25 13:47 IMPRESSION: 1. Mobile gallstone in the gallbladder. No ultrasound evidence of acute cholecystitis. Borderline dimensions of common hepatic duct. 2. Mild hepatomegaly. Portal vein and hepatic veins are patent. No free fluid. Abdomen/Pelvis CT 03/24/25 19:18 IMPRESSION: 1. There is fluid filling the small bowel without yobani dilation or transition point to suggest obstruction in this could be due to enteritis or ileus. 2. Small amount of pericholecystic fluid versus edematous wall thickening of the partially decompressed gallbladder without significant stranding in the surrounding fat. The absence of appreciable inflammatory stranding or gallbladder dilation would argue against acute cholecystitis. Differential would include chronic cholecystitis, hepatitis or other liver disease, congestive heart failure or other cause of generalized edema forming states. Correlate clinically and further Montiel sign. If there is clinical concern for acute cholecystitis could consider either ultrasound or HIDA scan for further evaluation. Labs Labs: Laboratory Results - last 24 hr 03/25/25 05:22 WBC 9.6 RBC 4.54 Hgb 14.1 Hct 43.0 MCV 94.7 MCH 31.1 MCHC 32.8 RDW 12.4 Plt Count 270 MPV 9.3 Sodium 139 Potassium 4.0 Chloride 105 Carbon Dioxide 28 Anion Gap 6 BUN 7 Creatinine 0.75 Estim Creat Clear Calc Not Reportable Estimated GFR > 60 Glucose 91 Calcium 8.8 Total Bilirubin 0.8 AST 48 H ALT 46 H Alkaline Phosphatase 72 Total Protein 7.0 Albumin 4.1
--- NOTE | 2025-03-25 11:37 | P.DS_ITS ---
DS: Admitting Diagnosis Discharge Date 03/25/2025 Admitting Diagnosis acute cholecystitis copd DS: Discharge Diagnosis Discharge Diagnosis (1) Acute cholecystitis: Code(s): K81.0 - Acute cholecystitis Status: Acute (2) COPD (chronic obstructive pulmonary disease): Code(s): J44.9 - Chronic obstructive pulmonary disease, unspecified Status: Acute DS: Summary Hospital Course Reason for hospitalization: acute cholecystitis copd Hospital Course: 54-year-old female with a past medical history of COPD who presented on 03/22/2025 with 5?6 days of worsening right upper quadrant and epigastric abdominal pain associated with nausea, vomiting, bloating, and poor oral intake. Initial evaluation revealed significant leukocytosis (WBC 23.1) with mild transaminitis and evidence of dehydration. CT abdomen/pelvis demonstrated a partially contracted gallbladder with mild wall thickening and surrounding inflammatory changes concerning for acute cholecystitis. She was admitted to observation, made NPO, and started on IV fluids, IV Zosyn, and pain control. General surgery was consulted. Right upper quadrant ultrasound showed cholelithiasis without definitive sonographic evidence of acute cholecystitis; however, given her clinical presentation and laboratory abnormalities, surgical intervention was recommended. Patient proceeded with surgery and underwent a laparoscopic cholecystectomy on 03/24/[address] Lundy without complication. Postoperatively, her leukocytosis and renal function normalized, pain was well controlled primarily with acetaminophen, and she tolerated advancement to a regular diet. Per surgery note patient not wanting narcotics and does not require antibiotics on discharge. She ambulated independently, remained hemodynamically stable and afebrile, and had well-healing port site incisions without signs of infection. Patient discharged home in a stable condition. She is to follow up with her PCP and surgery as scheduled. Status at Discharge Functional status at discharge: independent ambulation Time Spent with Patient Time attestation: Total time spent providing and/or coordinating discharge services: Time spent: Greater than 30 minutes Exam Narrative: AF HR 71 RR16 SPO2 97 BP 116/74 General: female in no acute respiratory distress who is nontoxic appearing, sitting on side of bed. HEENT: Normocephalic. Atraumatic. Extraocular movement intact. Sclera clear and anicteric. No facial asymmetry. Chest: Lungs are clear to auscultation bilaterally. No wheezes or crackles. CV: Heart was regular rate and rhythm. Abd: Abdomen was soft. Nondistended. Positive bowel sounds. Well healing laparoscopic incisions without surrounding redness, warmth, or drainage. DS: Data Data Completed and Pending Completed studies during hospitalization: abdomen/pelvis ct upper quadrant us Pending studies at discharge: Pending at discharge 03/24/25 10:59 Surgical [PTH] Routine Labs on day of discharge: Labs from last 24 hours 03/25/25 05:22 WBC 9.6 RBC 4.54 Hgb 14.1 Hct 43.0 MCV 94.7 MCH 31.1 MCHC 32.8 RDW 12.4 Plt Count 270 MPV 9.3 Sodium 139 Potassium 4.0 Chloride 105 Carbon Dioxide 28 Anion Gap 6 BUN 7 Creatinine 0.75 Estim Creat Clear Calc Not Reportable Estimated GFR > 60 Glucose 91 Calcium 8.8 Total Bilirubin 0.8 AST 48 H ALT 46 H Alkaline Phosphatase 72 Total Protein 7.0 Albumin 4.1 Discharge Plan Discharge Attending physician on discharge: Frances Hodges Consulting providers: Molina Marroquin; Arcelia Wise; Israel Lundy Discharging Clinician: Arcelia Wise Anticipated Discharge Date/Time: 03/25/25 11:32 Patient Disposition: Home Activity: other - see discharge instructions Diet: other - see discharge instructions Wound Care Instructions: other - see discharge instructions Discharge Instructions: Discharge disposition: Follow up with Dr. Lundy in the office in 2 weeks. Patient to call [phone] for an appointment. May shower in 24hours but do not soak incisions under water for 2 weeks. No lifting more than 10 to 15 lb for 2 weeks. May advance diet as tolerated. No driving for at least 3 days or until no longer taking any narcotic pain medication. She requested no narcotics to be prescribed for her at discharge. Resume all home medications. Patient can take Tylenol and/or ibuprofen [id number] as needed for pain. Take caution while standing, rising, or moving Change positions slowly taking a break between each position change If you standing feel dizzy sit back down and take a break Encouraged to continue with yearly vaccinations Return to the emergency department if he developed sudden shortness of breath, chest pain, nausea, vomiting, upset stomach or intractable diarrhea Return to the emergency department if you develop fever greater than 100.5 Follow-up with the primary care physician within 1-2 weeks Thank you for choosing [facility] for your healthcare needs Patient Instructions: Laparoscopic Cholecystectomy, Low Fat Diet (DC) Patient Language: Tuvaluan Stand Alone Forms: General Discharge Information Follow-up/Referrals: Sarah*,PARMJIT Ward [Primary Care Provider, Unknown] - 1 Week Israel Lundy MD [Physician, General Surgery] Referral Note: Follow-up to see Dr. Lundy in the office in 2 weeks. Call office for an appointment. Discharge Medications: New hydrocodone-acetaminophen 5-325 mg tablet 1 tablet PO Q4H PRN (Reason: pain) Qty: 12 0RF Continued Incruse Ellipta 62.5 mcg/actuation blister with device 1 inh inhalation DAILY albuterol sulfate 90 mcg/actuation HFA aerosol inhaler 2 inh inhalation Q4-6H PRN (Reason: asthma) cholecalciferol (vitamin D3) [Vitamin D3] 25 mcg (1,000 unit) tablet 1,000 unit PO DAILY Date of admission: 03/23/25 02:15 Primary Care Provider: Ray*Sylvia Niño Admitting Provider: Anabella Helton Attending physician on admission: Anabella Helton Condition: Stable Hospitalist MIPS Heart Failure (Exclusion) Patient has history of Heart Transplant or Left Ventricular Assistive Device?: No IF YES, STOP HERE Heart Failure (Qualifier) Patient has current or prior documentation of LVEF less than or equal to 40%, or mod/servere depressed LVSF?: No IF NO, STOP HERE
[2025-03-25 12:00] VITALS: BP 117/65; PULSE 75; RESP 18; TEMP 37; O2SAT 97
== END 2025-03-25 14:25 | disposition home or self-care (01) ==
LOC: ANHED 03-23 02:19 → ANH3MEDSUR 03-23 06:49
PROVIDERS: Student in an Organized Health Care Education/Training Program; Surgery; Admitting Provider Internal Medicine; Emergency Provider Physician Assistant; PCP Physician Assistant; Visit Provider General Practice
PROC: 0FT44ZZ Resection of Gallbladder, Percutaneous Endoscopic Approach (ICD-10-PCS; CPT 47562; principal; 2025-03-24 10:00)
DX: K80.12 Calculus of gallbladder with acute and chronic cholecystitis without obstruction (principal); J44.9 Chronic obstructive pulmonary disease, unspecified; Z85.3 Personal history of malignant neoplasm of breast; Z90.11 Acquired absence of right breast and nipple; Z92.21 Personal history of antineoplastic chemotherapy; Z80.0 Family history of malignant neoplasm of digestive organs; Z87.891 Personal history of nicotine dependence
CPT/HCPCS: 47562; 36415; 74177; 76705; 80053; 81001; 81025; 83690; 84484; 85025; 85027; 86850; 86900; 86901; 87040; 88304; 93005; 94640; 96361; 96365; 96374; 96375; 99285; A9270; G0378; J2003; J2004; J2250; J2270; J2405; J2543; J2704; J3010; J7030; J7120; Q9967